=== PATIENT | female | born 1960 | race Caucasian/White ===

== ENCOUNTER → 2016-10-02 | Outpatient (CLI) | payer BC | END | disposition home or self-care (01) | LOC: C.PAPS 09:20 | PROVIDERS: ATTEND Family Medicine | DX: R87.612 Low grade squamous intraepithelial lesion on cytologic smear of cervix (LGSIL) (principal); Z12.4 Encounter for screening for malignant neoplasm of cervix ==

== ENCOUNTER → 2016-10-04 | Outpatient (CLI) | payer BC ==
[2016-10-04 13:12] LABS: BASO % 1.8 %; BASO ABS # 0.07 K/uL (0-0.2); COMPLETE YES; EOS % 2.8 %; IG% 0.3 %; LYMPH % 34.7 %; LYMPH ABS # 1.34 K/uL (1.2-3.4); MEAN CELL VOLUME 89.3 fL (80-100); MEAN CORPUSCULAR HEMOGLOBIN 29.9 pg (25-34); MEAN CORPUSCULAR HGB CONC 33.5 g/dl (32-36); MEAN PLATELET VOLUME 10.6 fL (7.4-10.4); MONO % 7.5 %; NEUT % 52.9 %; PLATELET COUNT 215 K/uL (130-400); RED BLOOD COUNT 4.48 M/uL (4.2-5.4); WHITE BLOOD COUNT 3.86 K/uL (4.8-10.8)
[2016-10-04 13:26] LABS: BLOOD UREA NITROGEN 18 mg/dl (7-18); BUN/CREATININE RATIO 28.3 (10-20); CALCIUM 8.6 mg/dl (8.5-10.1); CARBON DIOXIDE 34 mmol/L (21-32); CHLORIDE 107 mmol/L (98-107); CREATININE 0.63 mg/dl (0.60-1.20); GLUCOSE 76 mg/dl (70-99); POTASSIUM 4.1 mmol/L (3.5-5.1); SODIUM 142 mmol/L (136-145)
[2016-10-04 13:29] LABS: CHOLESTEROL 163 mg/dl (0-200); CHOLESTEROL/HDL RATIO 2.5; HDL CHOLESTEROL 64 mg/dl; LDL CHOLESTEROL CALCULATED 87 mg/dl; PHOSPHORUS 3.1 mg/dl (2.5-4.9); TRIGLYCERIDES 62 mg/dl (0-150); VERY LOW DENSITY LIPOPROT CALC 12 mg/dl
== END | disposition home or self-care (01) ==
LOC: C.LABMFLN 08:57
PROVIDERS: ATTEND Family Medicine
DX: Z13.1 Encounter for screening for diabetes mellitus (principal); Z13.220 Encounter for screening for lipoid disorders; D05.00 Lobular carcinoma in situ of unspecified breast

== ENCOUNTER 2022-06-23 20:45 | Inpatient (IN) ==
[2022-06-23 21:33] LABS: Basophils # (auto) 0.04 K/uL (0-0.2); Basophils % (auto) 0.5 %; Eosinophils # (auto) 0.37 K/uL (0-0.50); Eosinophils % (auto) 4.7 %; Hematocrit (blood only) 28.8 % (34.1-44.9); Hemoglobin 8.6 g/dl (12.0-16.0); Immature Granulocytes # (auto) 0.05 K/uL (0.00-0.02); Immature Granulocytes % (auto) 0.6 %; Lymphocytes # (auto) 1.97 K/uL (1.2-3.4); Lymphocytes % (auto) 24.8 %; Mean Corpuscular Hemoglobin 21.7 pg (25.0-34.0); Mean Corpuscular Hgb Conc 29.9 g/dL (32.0-36.0); Mean Corpuscular Volume 72.5 fL (80.0-100.0); Mean Platelet Volume 10.3 fL (9.4-12.3); Monocytes % (auto) 6.3 %; Neutrophils # (auto) 5.01 K/uL (1.4-6.5); Neutrophils % (auto) 63.1 %; Platelet Count 497 K/uL (130-400); RDW Coefficient of Variation 16.1 % (11.5-14.5); RDW Standard Deviation 41.6 fL (36.4-46.3); Red Blood Count 3.97 M/uL (3.93-5.22); White Blood Count 7.94 K/ul (4.8-10.8)
[2022-06-23 21:52] LABS: Albumin Globulin Ratio 1.3 (0.9-2); Albumin Level 4.1 gm/dl (3.4-5.0); BUN Creatinine Ratio 25.8 (10-20); Bilirubin,Total 0.3 mg/dl (0.2-1.0); Calcium 9.3 mg/dl (8.5-10.1); Creatinine Clr Calc Pharmacy 100.5 ml/min; Est GFR (African American) 112.8 ml/min; Est GFR (Non-African American) 97.3 ml/min; Globulin 3.1 gm/dl (2.5-4.0); Potassium 4.1 mmol/L (3.5-5.1); Total Protein 7.2 gm/dl (6.0-8.3)
[2022-06-23 21:53] LABS: Appearance Urine Clear (Clear); Bilirubin Urine Negative (Negative); Blood Urine Negative (Negative); Color Urine Yellow; Glucose Urine UA Negative (Negative); Ketones Urine Negative (Negative); Leukocyte Esterase Urine Negative (Negative); Nitrite Urine Negative (Negative); Protein Urine Negative (Negative); Specific Gravity Urine 1.021 (1.000-1.030); Urobilinogen Urine Negative (Negative)
[2022-06-23] MEDS ORDERED: ONDANSETRON INJ 2 MG/ML 2 ML VIAL IV STA (22:55)
[2022-06-23] MEDS ORDERED: FAMOTIDINE 20MG IV PUSH 20 MG/5 ML SYR IV STA (22:55)
[2022-06-23] MEDS ORDERED: PANTOprazole 40 MG in SYRINGE 0 ML IV ONE (22:55)
[2022-06-23] MEDS ORDERED: SODIUM CHLORIDE 0.9% 1000ML 1,000 ML IV SCH (23:00)
[2022-06-23] MEDS: MoRPHine SULFATE 4 MG/ML 1 ML CARP\\VIAL IV PRN (23:21)
[2022-06-23] MEDS ORDERED: OPTIRAY 350 100ml IV ONE (23:46)
[2022-06-24] MEDS ORDERED: ONDANSETRON INJ 2 MG/ML 2 ML VIAL IV STA (00:53)
--- NOTE | 2022-06-24 01:05 | History & Physical Report ---
Date of Service June 24, 2022 Assessment & Plan (1) Small bowel obstruction: Plan: Lavonne Hein is a 61-year-old female with past medical history of asthma, hypertension, allergic rhinitis who presented due to abdominal pain. Found to have SBO versus ileus. SBO CT abdomen showed multiple fluid-filled nondilated loops of small bowel in the lower abdomen and pelvis concerning for ileus/SBO with transition point in the pelvis Surgery consulted hold on NG tube due to soft, nondistended abdomen and no emesis up to this point N.p.o. IV fluids ordered Antiemetics and analgesics as needed Gastritis With midepigastric pain Anemia with hemoglobin of 8.6 down from previous of 10.3 Concerning for possible GI bleed Report of dark stools, though did take Pepto-Bismol regularly Hemoccult negative in ED Continue to monitor CBC Start Protonix IV 40 mg twice daily for now Can consider GI consult for possibility of endoscopy Transfuse if hemoglobin under 7 patient has been typed and screened ?Colitis Stool PCR and C. difficile pending Follow CBC Hypertension Hold home lisinopril while n.p.o. Asthma Continue home fluticasonesalmeterol, albuterol as needed Allergic rhinitis Hold home loratadine while n.p.o. DVT prophylaxis: Hold chemoprophylaxis due to anemia with concern for possible GI bleed Diet: N.p.o. Dispo: Med telemetry CODE STATUS: Full (2) Anemia: (3) Hyperlipidemia: (4) Hypertension, essential, benign: (5) Asthma: (6) Allergic rhinitis: History of Present Illness Primary Care Provider: Conchis Sawyer MD Lavonne Hein is a 61-year-old female with past medical history of asthma, hypertension, allergic rhinitis who presented due to abdominal pain. She has had this for the past few days and the pain is localized directly behind her umbilicus and in her epigastric region. She does have associated nausea and one episode of emesis. She did report dark stools, however, she did admit to using Pepto-Bismol regularly to try to help with the symptoms. Of note, patient did report similar pain shortly after Thanksgiving, which had resolved after few days. In the ED CT abdomen showed multiple fluid-filled nondilated loops of small bowel in the lower abdomen and pelvis concerning for ileus/SBO with transition point in the pelvis. Findings concerning for colitis of the ascending and transverse colon, which may be of infectious or inflammatory etiologies. Findings concerning for gastritis. Hepatic steatosis. Lab work remarkable for a hemoglobin of 8.6, which is lower than her previous of 10.3 in March. Normal white count. BUN/creatinine ratio 25.8 without any significant creatinine or BUN elevation. CRP 0.89. Stool GI PCR and C. difficile toxin ordered by ED provider and pending. She received NSS 1 L bolus, Zofran 4 mg IV x2, famotidine 20 mg IV x1, Protonix 40 mg IV x1. Allergies Allergy/AdvReac Type Severity Reaction Status Date / Time Sulfa (Sulfonamide Allergy Intermediate Hives Verified 07/01/22 13:38 Antibiotics) Home Medications Medication Instructions Recorded Confirmed Type albuterol sulfate 90 mcg/actuation 2 puffs inhalation Q4H PRN 01/15/19 07/01/22 Rx aerosol inhaler (Ventolin HFA) shortness of breath or wheezing #18 grams loratadine 10 mg tablet 10 mg PO DAILY #90 tabs 01/15/19 07/01/22 Rx multivitamin (Daily Multi-Vitamin 1 tab PO DAILY #30 tabs 01/15/19 07/01/22 Rx tablet) fluticasone 100 mcg-salmeterol 50 1 puffs inhalation Q12H 07/16/19 07/01/22 History mcg/dose blistr powdr for inhalation (Advair Diskus) lisinopril 5 mg tablet 5 mg PO DAILY #90 tabs 01/18/22 07/01/22 Rx oxycodone-acetaminophen 5 mg-325 1 - 2 tab PO Q4H PRN pain, initial 06/29/22 07/01/22 Rx mg tablet (Percocet) therapy, max 6 daily #15 tabs Past Med/Surg History Medical History (Updated 06/29/22 @ 08:14 by Zainab Mcneal MD) Allergic rhinitis Anemia Anxiety Asthma Hypertension, essential, benign Liver lesion Lobular carcinoma in situ of breast Lung mass Mass of cecum Pap smear abnormality of cervix with LGSIL Surgical History (Updated 06/28/22 @ 11:12 by Nieves Hassan RN) H/O colonoscopy 12/29/13 repeat 10yrs H/O lumpectomy H/O oral surgery H/O right hemicolectomy (06/26/22) Robotic Laparoscopic Assisted Right Hemicolectomy(Not Applicable) - Solomon Hopper, DO, FACS History of facial surgery History of tubal ligation Family History Grandmother Stroke syndrome Denies family history of Ovarian cancer Prostate cancer Myocardial infarction Breast cancer Colorectal cancer Social History Smoking Status: Never smoker Second Hand Exposure: No; Hx Alcohol Use: No Hx Substance Use: No Preferred Language: Turkish Communication Ability: Effective Ground Control Approach Technician Required: No Beliefs That Will Affect Care: Sabianist marital status: Current Living Situation: Spouse current occupational status: employed Feels Safe at Home: Yes Assistive Devices: None Review of Systems Review of Systems: Per HPI Physical Exam Physical Exam: GENERAL: A&Ox3. In mild to moderate pain. HEENT: PERRL, EOMI. Moist mucous membranes. NECK: No JVD. No lymphadenopathy. CHEST/LUNGS: CTAB A/P. No crackles, wheezes, rales, rhonchi. HEART: RRR. No m/g/r. No carotid bruits. ABDOMEN: Moderately tender to palpation midepigastrium, nondistended, soft. BS+ EXTREMITIES: No cyanosis, no clubbing, no edema SKIN: Warm and dry. No rashes or lesions. PSYCHIATRIC: Euthymic affect, no SI, no pressured speech, no hallucinations NEUROLOGIC: No FND. Results & Data Results & [facility] ([facility]) Vital Signs (Past 12 Hours) Vital Signs Temp Pulse Pulse Resp BP BP Pulse Ox 06/23/22 23:00 77 18 164/108 H 100 06/23/22 21:27 98 06/23/22 20:56 36.5 C 81 16 156/92 H 100 O2 Del Method 06/23/22 23:00 Room Air 06/23/22 21:27 Room Air 06/23/22 20:56 Room Air Supervising Physician Co-Signing Physician Notes Attending addendum: I have physically seen this patient, have supervised the medical residents activities, and agree with the H&P unless as otherwise noted. Assessment and Plan: Small bowel obstruction- NPO IV fluids as noted Zofran 4 mg IV every 6 hours as needed Protonix 40 mg IV twice daily General surgery consulted and aware Gastritis- Protonix 40 mg IV twice daily N.p.o. was noted Anemia- Hemoglobin 8.6 down from 10.3 Hemoccult negative Multiple serial laboratories Consult GI if progressive Question colitis- Stool PCR and C. difficile testing pending, treat as needed Remaining orders and notations as noted Resident Activity Tracking Resident Involvement: Resident Care Provided Care Provided: Adult Hospital Medicine
--- NOTE | 2022-06-24 01:08 | Surgery Consultation ---
Date of Consultation June 24, 2022 Assessment & Plan (1) Small bowel obstruction: I discussed the case with the treating clinician in the emergency department he is planning on having medicine admit the patient to the hospital. In the absence of prior abdominal surgeries and based on the patient's CAT scan and symptomatology appears that the patient either has a small bowel obstruction or an ileus. In the setting of colitis I would favor an ileus. I would recommend proceeding as follows: At the present time the patient's abdomen is soft and nondistended. She has not had any emesis since arrival to the emergency department therefore I feel we can hold off on placing an NG tube at this time. I did discuss with the patient that if her abdominal exam worsens (increased pain or worsening abdominal distention) or if further nausea vomiting soothe the modality of an NG tube may need to be reconsidered Recommend implementing n.p.o. status Recommend hydrating with IV fluids At the present time it does not appear That the patient has any findings suggestive of ischemic bowel (she is normotensive without tachycardia or fever, white blood cell count is normal, no evidence of acute kidney injury, no rebound tenderness or guarding on abdominal exam) It does appear that the patient may be suffering from a colitis or gastritis causing her symptomatology. Treating clinician emergency department has already ordered stool studies for a C. difficile as well as stool cultures The patient does have what appears to be a new onset anemia which may be related to the underlying colitis or gastritis Would recommend following serial labs Gastroenterology consultation may be beneficial to see if patient warrants either upper or lower endoscopy We will continue to follow along with you while the patient is hospitalized Supervising Physician Co-Signing Physician Notes Patient seen and examined, labs and imaging reviewed, agree with above. 61-year-old female presented overnight with several weeks of abdominal cramping and bloating. She has been having normal bowel movements as of yesterday. Symptoms started around Thanksgiving, somewhat resolved, and then got worse. She did have a colonoscopy many years ago that was normal. No family history of colon cancer or inflammatory bowel disease. Her CT scan overnight was read as ileus versus obstruction with possible gastritis and colitis. She was admitted to the medicine service for concern for a small bowel obstruction. The [facility] radiologist read it today as concerning for an ileocecal mass. GIs been consulted and they are planning on a colonoscopy tomorrow. On exam she is afebrile with stable vitals. Her abdomen is soft, nondistended, nontender. I personally viewed and interpreted the CT scan myself and agree with the assessm ent of some small bowel dilation with a gentle taper in the right lower quadrant with lymphadenopathy and thickening around the ileocecal valve which is concerning for a mass. Labs are unremarkable. Colonoscopy tomorrow by GI, appreciate their assistance CT chest and CEA levels for staging Pending the results of the colonoscopy, we may recommend laparoscopic/robotic right hemicolectomy. If it appears that she is obstructed then we would recommend this during this hospital stay. General surgery will continue to follow, call with questions or concerns. History of Present Illness Reason for Consultation: Small bowel obstruction versus ileus History of Present Illness This is a 61-year-old female who presented to the emergency department secondary to abdominal pain. The patient notes that she originally had abdominal pain beginning the weekend after Thanksgiving which was around June 08. She noted that the pain lasted a few days and then self resolved. She notes over the past several days the pain is returned. When I asked her to describe the pain she notes that it is a stabbing cramp-like pain that is located primarily over her umbilicus. She notes that the pain does not radiate. She does have associated nausea and vomiting. She had had 1 episode of emesis earlier today. She does not note any palliative or provocative factors. She has never had abdominal surgeries in the past. She notes that she had a colonoscopy in 2013 and to the best of her knowledge there is no significant pathology noted on the study. No close contacts are ill with similar symptoms. The patient does note to alleviate her symptoms she did take some Pepto-Bismol yesterday with no avail. She notes that she has been having normal bowel movements since her symptoms began but does report that over the past 24 hours her bowel movements have become greenish/black in color. Since arrival to the emergency department the patient has had labs and imaging which independent reviewed. CT scan of the abdomen and pelvis showed multiple fluid-filled dilated loops of small bowel in the lower abdomen pelvis which was concerning for either an ileus or small bowel obstruction. There are also findings concerning for colitis of the ascending and transverse colon which was felt to be either infectious or inflammatory. Findings concerning for gastritis was also noted. Labs include a CBC her white blood cell count was normal. Her platelet count is 497,000. Hemoglobin and hematocrit were 8.6 and 28.8. (Review of records show the patient's most recent hemoglobin was on 03/15/2022 and was noted to be 10.3.; Prior to these dates her hemoglobin was noted to be with in the normal range) chemistry profile showed sodium and potassium are within normal range. Her BUN and creatinine were also within normal range. There were no elevation of LFTs or lipase. Urinalysis was not indicative of infection. A COVID test was negative. At the time of my interview she was resting comfortably in bed and she was in no distress. Allergies Allergy/AdvReac Type Severity Reaction Status Date / Time Sulfa (Sulfonamide Allergy Intermediate Hives Verified 06/23/22 23:01 Antibiotics) Home Medications Medication Instructions Recorded Confirmed Type albuterol sulfate 90 mcg/actuation 2 puffs inhalation Q4H PRN 01/15/19 06/23/22 Rx aerosol inhaler (Ventolin HFA) shortness of breath or wheezing #18 grams loratadine 10 mg tablet 10 mg PO DAILY #90 tabs 01/15/19 06/23/22 Rx multivitamin (Daily Multi-Vitamin 1 tab PO DAILY #30 tabs 01/15/19 06/23/22 Rx tablet) fluticasone 100 mcg-salmeterol 50 1 puffs inhalation Q12H 07/16/19 06/23/22 History mcg/dose blistr powdr for inhalation (Advair Diskus) lisinopril 5 mg tablet 5 mg PO DAILY #90 tabs 01/18/22 06/23/22 Rx Patient History Medical History Allergic rhinitis Anxiety Asthma Hypertension, essential, benign 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 Surgical History H/O colonoscopy 12/29/13 repeat 10yrs H/O lumpectomy H/O oral surgery History of facial surgery History of tubal ligation Family History Grandmother Stroke syndrome Denies family history of Ovarian cancer Prostate cancer Myocardial infarction Breast cancer Colorectal cancer Social History Smoking Status: Never smoker Hx Alcohol Use: No Hx Substance Use: No marital status: Current Living Situation: Spouse current occupational status: employed Feels Safe at Home: Yes Review of Systems Constitutional: no fever and no chills Eyes: no eye pain Ear, Nose, Mouth, Throat: no ear pain Respiratory: no cough and no dyspnea Cardiovascular: no chest pain Gastrointestinal: as per Subjective / HPI, + abdominal pain, + nausea and + vomiting Genitourinary: no dysuria Musculoskeletal: no back pain Integumentary: no rash Neurologic: no localized weakness Physical Exam Constitutional: WD/WN, vitals as above Eyes: no conjunctival abnormality ENMT: Ears: no hearing impairment and no external ear abnormality Mouth: no oropharynx abnormality Neck: trachea midline Respiratory: normal respiratory effort; no respiratory distress and no labored breathing Cardiovascular: Rate/Rhythm: regular rate and regular rhythm Gastrointestinal (Abdomen): At the time of my exam the patient's abdomen was soft, nonrigid, nondistended. She did have pain with palpation directly over the umbilicus but did not have any rebound tenderness or guarding. With a female nurse staple laster present and the patient's permission I did perform a rectal exam patient was noted to have normal sphincter tone. Stool. Dark brown/black in color and was noted to be heme-negative on Hemoccult. Musculoskeletal: No calf tenderness Skin: no rashes Neurologic: moves all extremities Psychiatric: A+Ox3, euthymic affect Results & Data ([facility]) Vital Signs (Past 12 Hours) Vital Signs Temp Pulse Pulse Resp BP BP Pulse Ox 06/23/22 23:00 77 18 164/108 H 100 06/23/22 21:27 98 06/23/22 20:56 36.5 C 81 16 156/92 H 100 O2 Del Method 06/23/22 23:00 Room Air 06/23/22 21:27 Room Air 06/23/22 20:56 Room Air PG Care Time/CCT Total # of Minutes Spent Total Time Spent with Patient: Total time spent is greater than 50% in coordination of care (as documented) at patient's floor/unit and/or counseling patient: Coding Level of Care Code 76391 Inpt Consult Level 5 Diagnoses Small bowel obstruction K56.609
[2022-06-24] MEDS ORDERED: PROCHLORPERAZINE 5 MG in SYRINGE 4 ML IV ONE (02:00)
[2022-06-24] MEDS: MoRPHine SULFATE 4 MG/ML 1 ML CARP\\VIAL IV PRN (02:05)
[2022-06-24] MEDS ORDERED: ALBUTEROL HFA 8 GM INHALER INH PRN (03:09)
[2022-06-24] MEDS ORDERED: MoRPHine SULFATE 2 MG/ML CARP IV PRN (03:09)
[2022-06-24] MEDS ORDERED: MoRPHine SULFATE 4 MG/ML 1 ML CARP\\VIAL IV PRN (03:09)
[2022-06-24] MEDS: SODIUM CHLORIDE 0.9% 1000ML 1,000 ML IV SCH ×2 (03:29→16:16)
--- NOTE | 2022-06-24 05:47 | Emergency Department Note ---
History of Present Illness General Chief complaint: Abdominal Pain Stated complaint: ABD PAIN, VOMITING Time Seen by Provider: 06/23/22 22:30 History of Present Illness Maximum Pain Intensity: 7 This is a 61-year-old female presenting to the emergency department for evaluation of abdominal pain for the past several weeks. The patient states that many of her symptoms began around the where she had some epigastric pain that worsened after eating. Patient states that her pain worsened even more tonight and she did have an episode of vomiting. The patient has taken [id number] Tums without improvement of symptoms, as well as a single dose of Pepto-Bismol. She does not report a history of abdominal surgery in the past. No recent travel history. She rates her discomfort a 7/10, dull, and primarily in the epigastric region. Home Medications Medication Instructions Recorded Confirmed Type albuterol sulfate 90 mcg/actuation 2 puffs inhalation Q4H PRN 01/15/19 06/23/22 Rx aerosol inhaler (Ventolin HFA) shortness of breath or wheezing #18 grams loratadine 10 mg tablet 10 mg PO DAILY #90 tabs 01/15/19 06/23/22 Rx multivitamin (Daily Multi-Vitamin 1 tab PO DAILY #30 tabs 01/15/19 06/23/22 Rx tablet) fluticasone 100 mcg-salmeterol 50 1 puffs inhalation Q12H 07/16/19 06/23/22 History mcg/dose blistr powdr for inhalation (Advair Diskus) lisinopril 5 mg tablet 5 mg PO DAILY #90 tabs 01/18/22 06/23/22 Rx Allergies Allergy/AdvReac Type Severity Reaction Status Date / Time Sulfa (Sulfonamide Allergy Intermediate Hives Verified 06/23/22 23:01 Antibiotics) Past Med/Surg History Medical History Allergic rhinitis Anxiety Asthma Hypertension, essential, benign 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 Surgical History H/O colonoscopy 12/29/13 repeat 10yrs H/O lumpectomy H/O oral surgery History of facial surgery History of tubal ligation Family History Grandmother Stroke syndrome Denies family history of Ovarian cancer Prostate cancer Myocardial infarction Breast cancer Colorectal cancer Social History Smoking Status: Never smoker Hx Alcohol Use: No Hx Substance Use: No marital status: Current Living Situation: Spouse current occupational status: employed Feels Safe at Home: Yes Review of Systems A total of 10 systems reviewed and were otherwise negative Physical Exam Vital Signs Vital Signs - 24 hr 06/23/22 20:56 06/23/22 21:27 06/23/22 23:00 Temperature 36.5 C Temperature Source Temporal Artery Scan Pulse Rate 81 Pulse Rate [Finger] 77 Respiratory Rate 16 18 Respiratory Effort / Characteristics Non-Labored Spontaneous Respiratory Depth Normal Blood Pressure 156/92 H Blood Pressure [Right Arm] 164/108 H Blood Pressure Mean 113 Blood Pressure Mean [Right Arm] 126 Pulse Oximetry 100 98 100 Oxygen Delivery Method Room Air Room Air Room Air Sepsis Recent Fever Within 48 Hours No Sepsis New/Unexplained Change in Mental Status No Sepsis Action Taken by Nursing No Action Required 06/24/22 01:00 Temperature Temperature Source Pulse Rate Pulse Rate [Finger] 75 Respiratory Rate 18 Respiratory Effort / Characteristics Respiratory Depth Blood Pressure Blood Pressure [Right Arm] 150/83 H Blood Pressure Mean Blood Pressure Mean [Right Arm] 105 Pulse Oximetry 95 Oxygen Delivery Method Room Air Sepsis Recent Fever Within 48 Hours Sepsis New/Unexplained Change in Mental Status Sepsis Action Taken by Nursing VITALS: Vitals are noted on the nurse's note and reviewed by myself. Vital signs stable. GENERAL: Well-developed, well-nourished, white female, who is mildly uncomfortable on presentation. She is overall pleasant and cooperative. HEAD: Normocephalic atraumatic. HEART: Regular rate and rhythm without murmurs gallops or rubs. LUNGS: Clear to auscultation bilaterally without wheezes, rales or rhonchi. No retractions or accessory muscle use. ABDOMEN: Positive normal bowel sounds x 4. Soft, nontender, without masses or organomegaly. No guarding or rebound tenderness. MUSCULOSKELETAL: No muscle atrophy, erythema, or edema noted. Full range of motion in all extremities. Course Administered Medications Sodium Chloride (Nss 1000ml) 1,000 mls @ 100 mls/hr IV .Q10H MARIA D Stop: 07/24/22 03:08 Last Admin: 06/24/22 03:29 Dose: 100 mls/hr Documented By: JUANY Discontinued Medications Sodium Chloride (Nss 1000ml) 1,000 mls @ 999 mls/hr IV .Q1H1M MARIA D Stop: 06/24/22 00:00 Last Infusion: 06/24/22 00:39 Dose: 0 mls/hr Documented By: Admin: 06/23/22 23:21 Dose: 999 mls/hr Documented By: ESTRELLA Pantoprazole Sodium 40 mg/ (Syringe) 10 mls @ 5 mls/min IV NOW ONE Stop: 06/23/22 22:56 Last Admin: 06/23/22 23:21 Dose: 5 mls/min Documented By: ESTRELLA Famotidine (Pepcid 20mg Iv Push) 20 mg in 5 mls @ 2.5 mls/min IV NOW STA Stop: 06/23/22 22:56 Last Admin: 06/23/22 23:21 Dose: 2.5 mls/min Documented By: ESTRELLA Prochlorperazine 5 mg/ Syringe 5 mls @ 5 mls/min IV 0200 ONE Stop: 06/24/22 02:01 Last Admin: 06/24/22 02:00 Dose: 5 mls/min Documented By: ESTRELLA Ioversol (Optiray 350 100ml) 100 ml IV ONCE ONE Stop: 06/23/22 23:47 Last Admin: 06/23/22 23:46 Dose: 85 ml Documented By: LITTLE Morphine Sulfate (Morphine Sulfate 4 Mg/Ml 1 Ml Carp\Vial) 4 mg IV Q30M PRN PRN Reason: Pain Stop: 07/07/22 22:54 Last Admin: 06/24/22 02:05 Dose: 4 mg Documented By: Admin: 06/23/22 23:21 Dose: 4 mg Documented By: ESTRELLA Ondansetron HCl (Ondansetron Inj 2 Mg/Ml 2 Ml Vial) 4 mg IV NOW STA Stop: 06/23/22 22:56 Last Admin: 06/23/22 23:21 Dose: 4 mg Documented By: ESTRELLA Ondansetron HCl (Ondansetron Inj 2 Mg/Ml 2 Ml Vial) 4 mg IV NOW STA Stop: 06/24/22 00:54 Last Admin: 06/24/22 00:58 Dose: 4 mg Documented By: ESTRELLA Medical Decision Making Differential Diagnosis Differential diagnosis: Etiologies such as biliary colic, cholecystitis, hepatitis, pancreatitis, cardiac disease, pancreatitis, gastritis, peptic ulcer disease, appendicitis, cystitis, diverticulitis, mesenteric ischemia, inflammatory bowel disease, ileus, bowel obstruction, testicular/adnexal torsion, aortic pathology, shingles, as well as others were considered Laboratory Data Result diagrams: 06/23/22 21:13 06/23/22 21:13 Lab Results 06/23/22 06/23/22 06/23/22 Range/Units 21:13 21:13 21:13 WBC 7.94 (4.8-10.8) K/ul RBC 3.97 (3.93-5.22) M/uL Hgb 8.6 L (12.0-16.0) g/dl Hct 28.8 L (34.1-44.9) % MCV 72.5 L (80.0-100.0) fL MCH 21.7 L (25.0-34.0) pg MCHC 29.9 L (32.0-36.0) g/dL RDW Std Deviation 41.6 (36.4-46.3) fL RDW Coeff of Kayleigh 16.1 H (11.5-14.5) % Plt Count 497 H (130-400) K/uL MPV 10.3 (9.4-12.3) fL Immature Gran % (Auto) 0.6 % Neut % (Auto) 63.1 % Lymph % (Auto) 24.8 % Thomas % (Auto) 6.3 % Eos % (Auto) 4.7 % Baso % (Auto) 0.5 % Neut # (Auto) 5.01 (1.4-6.5) K/uL Lymph # (Auto) 1.97 (1.2-3.4) K/uL Thomas # (Auto) 0.50 (0.24-0.82) K/uL Eos # (Auto) 0.37 (0-0.50) K/uL Baso # (Auto) 0.04 (0-0.2) K/uL Immature Gran # (Auto) 0.05 H (0.00-0.02) K/uL ESR (0-30) mm/hr Sodium 137 (136-145) mmol/L Potassium 4.1 (3.5-5.1) mmol/L Chloride 102 (98-107) mmol/L Carbon Dioxide 29 (21-32) mmol/L Anion Gap 6 (3-11) BUN 16 (6-23) mg/dl Creatinine 0.62 (0.6-1.2) mg/dl Est Cr Clr Drug Dosing 100.5 ml/min Est GFR ( Amer) 112.8 ml/min Est GFR (Non-Af Amer) 97.3 ml/min BUN/Creatinine Ratio 25.8 H (10-20) Glucose 100 H (70-99(Fasting)) mg/dl Calcium 9.3 (8.5-10.1) mg/dl Total Bilirubin 0.3 (0.2-1.0) mg/dl AST 16 (13-39) U/L ALT 18 (7-52) U/L Alkaline Phosphatase 79 (34-104) U/L C-Reactive Protein (0-0.5) mg/dl Total Protein 7.2 (6.0-8.3) gm/dl Albumin 4.1 (3.4-5.0) gm/dl Globulin 3.1 (2.5-4.0) gm/dl Albumin/Globulin Ratio 1.3 (0.9-2) Lipase 26 (11-82) U/L Urine Color Yellow Urine Appearance Clear (Clear) Urine pH 7.0 (4.5-7.5) Ur Specific Herreid 1.021 (1.000-1.030) Urine Protein Negative (Negative) Urine Glucose (UA) Negative (Negative) Urine Ketones Negative (Negative) Urine Blood Negative (Negative) Urine Nitrite Negative (Negative) Urine Bilirubin Negative (Negative) Urine Urobilinogen Negative (Negative) Ur Leukocyte Esterase Negative (Negative) SARS-CoV-2, RNA, NAAT (NEGATIVE) Blood Type Antibody Screen 06/23/22 06/23/22 06/23/22 Range/Units 21:13 21:13 23:12 WBC (4.8-10.8) K/ul RBC (3.93-5.22) M/uL Hgb (12.0-16.0) g/dl Hct (34.1-44.9) % MCV (80.0-100.0) fL MCH (25.0-34.0) pg MCHC (32.0-36.0) g/dL RDW Std Deviation (36.4-46.3) fL RDW Coeff of Kayleigh (11.5-14.5) % Plt Count (130-400) K/uL MPV (9.4-12.3) fL Immature Gran % (Auto) % Neut % (Auto) % Lymph % (Auto) % Thomas % (Auto) % Eos % (Auto) % Baso % (Auto) % Neut # (Auto) (1.4-6.5) K/uL Lymph # (Auto) (1.2-3.4) K/uL Thomas # (Auto) (0.24-0.82) K/uL Eos # (Auto) (0-0.50) K/uL Baso # (Auto) (0-0.2) K/uL Immature Gran # (Auto) (0.00-0.02) K/uL ESR 77 H (0-30) mm/hr Sodium (136-145) mmol/L Potassium (3.5-5.1) mmol/L Chloride (98-107) mmol/L Carbon Dioxide (21-32) mmol/L Anion Gap (3-11) BUN (6-23) mg/dl Creatinine (0.6-1.2) mg/dl Est Cr Clr Drug Dosing ml/min Est GFR ( Amer) ml/min Est GFR (Non-Af Amer) ml/min BUN/Creatinine Ratio (10-20) Glucose (70-99(Fasting)) mg/dl Calcium (8.5-10.1) mg/dl Total Bilirubin (0.2-1.0) mg/dl AST (13-39) U/L ALT (7-52) U/L Alkaline Phosphatase (34-104) U/L C-Reactive Protein 0.89 H (0-0.5) mg/dl Total Protein (6.0-8.3) gm/dl Albumin (3.4-5.0) gm/dl Globulin (2.5-4.0) gm/dl Albumin/Globulin Ratio (0.9-2) Lipase (11-82) U/L Urine Color Urine Appearance (Clear) Urine pH (4.5-7.5) Ur Specific Herreid (1.000-1.030) Urine Protein (Negative) Urine Glucose (UA) (Negative) Urine Ketones (Negative) Urine Blood (Negative) Urine Nitrite (Negative) Urine Bilirubin (Negative) Urine Urobilinogen (Negative) Ur Leukocyte Esterase (Negative) SARS-CoV-2, RNA, NAAT (NEGATIVE) Blood Type A Negative Antibody Screen NEGATIVE 06/23/22 Range/Units 23:58 WBC (4.8-10.8) K/ul RBC (3.93-5.22) M/uL Hgb (12.0-16.0) g/dl Hct (34.1-44.9) % MCV (80.0-100.0) fL MCH (25.0-34.0) pg MCHC (32.0-36.0) g/dL RDW Std Deviation (36.4-46.3) fL RDW Coeff of Kayleigh (11.5-14.5) % Plt Count (130-400) K/uL MPV (9.4-12.3) fL Immature Gran % (Auto) % Neut % (Auto) % Lymph % (Auto) % Thomas % (Auto) % Eos % (Auto) % Baso % (Auto) % Neut # (Auto) (1.4-6.5) K/uL Lymph # (Auto) (1.2-3.4) K/uL Thomas # (Auto) (0.24-0.82) K/uL Eos # (Auto) (0-0.50) K/uL Baso # (Auto) (0-0.2) K/uL Immature Gran # (Auto) (0.00-0.02) K/uL ESR (0-30) mm/hr Sodium (136-145) mmol/L Potassium (3.5-5.1) mmol/L Chloride (98-107) mmol/L Carbon Dioxide (21-32) mmol/L Anion Gap (3-11) BUN (6-23) mg/dl Creatinine (0.6-1.2) mg/dl Est Cr Clr Drug Dosing ml/min Est GFR ( Amer) ml/min Est GFR (Non-Af Amer) ml/min BUN/Creatinine Ratio (10-20) Glucose (70-99(Fasting)) mg/dl Calcium (8.5-10.1) mg/dl Total Bilirubin (0.2-1.0) mg/dl AST (13-39) U/L ALT (7-52) U/L Alkaline Phosphatase (34-104) U/L C-Reactive Protein (0-0.5) mg/dl Total Protein (6.0-8.3) gm/dl Albumin (3.4-5.0) gm/dl Globulin (2.5-4.0) gm/dl Albumin/Globulin Ratio (0.9-2) Lipase (11-82) U/L Urine Color Urine Appearance (Clear) Urine pH (4.5-7.5) Ur Specific Herreid (1.000-1.030) Urine Protein (Negative) Urine Glucose (UA) (Negative) Urine Ketones (Negative) Urine Blood (Negative) Urine Nitrite (Negative) Urine Bilirubin (Negative) Urine Urobilinogen (Negative) Ur Leukocyte Esterase (Negative) SARS-CoV-2, RNA, NAAT NEGATIVE (NEGATIVE) Blood Type Antibody Screen Imaging Data Radiologist's Impression: Preliminary Findings Only See Final Report For Complete Findings CT ABDOMEN & PELVIS With Contrast: There are multiple fluid-filled and dilated loops of small bowel in the lower abdomen and pelvis concerning for ileus/small bowel obstruction with transition point in the pelvis. Findings concerning for colitis of the ascending and transverse colon, which may be of infectious or inflammatory etiologies. Findings concerning for gastritis. Hepatic steatosis. The gallbladder is unremarkable. Small hepatic cyst. The common bile duct is normal. No evidence of pancreatitis. No evidence of hydronephrosis or urinary c alculi. The appendix is normal. Diverticulosis of the sigmoid colon. No evidence of free air or free fluid. No comparisons. Radiologist: Marifer Crowder MD [facility] Narrative Physical exam and history were performed. Nursing notes, EMR, and Medication List were personally reviewed. Patient appears to have abdominal pain bringing her to the ER. IV access was established and labs were obtained. Patient was hydrated with normal saline given IV morphine, IV Zofran, IV Protonix, and IV Pepcid. An order was placed for continuous cardiac monitoring. The monitor shows a rate of 70 with normal sinus rhythm. The patient's blood work is as above and was reviewed. She does not have a significantly elevated white blood cell count. She is anemic today at 8.6. Reviewing the EMR her hemoglobin was 10.3 and March, and 13.8 in January. Because of this type and screen was performed. She was sent to CT scan for further imaging. BUN and creatinine are preserved. Transaminases are not diagnostic. Sed rate and CRP are elevated. Urine is without distinct evidence of . COVID swab is negative. CT scan was reviewed by myself and [employer]. She does have multiple fluid-filled and dilated small bowel loops. This certainly could represent small bowel obstruction, however this colitis is also in the differential. Clinically I have concern for upper GI bleed with her pain, nausea, and drop in hemoglobin. I did reach out to both the on-call hospitalist team, as well as the on-call surgical team. Surgical team did perform bedside guaiac that was negative. The patient will be admitted through the hospitalist team for further care and evaluation. Please see their dictations for further patient course, plan, and disposition. The chart was completed utilizing [employer] Speech Voice Recognition Software. Grammatical errors, random word insertions, pronoun errors, and incomplete sentences are an occasional consequence of this system due to software limitations, ambient noise, and hardware issues. Any formal questions or concerns about the content, text, or information contained within the body of this dictation should be directly addressed to the provider for clarification. . Impression & Plan Acute upper abdominal pain, Anemia, Small bowel obstruction Discharge Plan Visit Data Chief Complaint: Abdominal Pain Stated Complaint: ABD PAIN, VOMITING ED Provider: [facility] ED Midlevel Provider: Reji Mariee Discharge Problem: Acute upper abdominal pain, Anemia, Small bowel obstruction Patient Disposition: Admitted As Inpatient Discharge Instructions Interventions: ED Discharge Assessment Last Done: 06/24/22 03:09
--- NOTE | 2022-06-24 07:47 | CT Scan Report ---
CT OF THE ABDOMEN AND PELVIS WITH CONTRAST CLINICAL HISTORY: Upper abdominal pain. Anemia. COMPARISON STUDY: None. TECHNIQUE: Following IV administration of 85 mL of Optiray, axial images of the abdomen and pelvis we re obtained from the lung bases to the proximal femurs. Images were reviewed in the axial, sagittal, and coronal planes. IV contrast was administered without complication. Automated exposure control wa s utilized for the study. A dose lowering technique was utilized adhering to the principles of ALARA . CT DOSE: 406.72 mGy.cm FINDINGS: Lung bases are unremarkable. No pneumatosis, free air or portal venous gas is present. A 7 mm fat-containing right hepatic dome lesion on axial image 12 of 451 is benign. There is a 7 mm circu mscribed hypodense segment 6 lesion on image 101 which is too small to characterize but probably sandy gn. There is no biliary or pancreatic ductal dilatation. Spleen, adrenal glands, left kidney and panc reas are normal. Subcentimeter right renal lesion is too small to characterize but favors a cyst. The re is no hydronephrosis. There is trace perihepatic ascites. Note is made of a small bowel obstructio n with transition point at the ileocecal valve. Small bowel loops measure up to 3.8 cm in caliber. Th e mid to distal small bowel is dilated. There is mild associated mesenteric infiltration and trace in terloop fluid. The obstruction is due to mass-like thickening within the cecum. A pathologically enla rged ileocolic lymph node on image 220 measures 3.5 x 2 cm. Numerous additional prominent ileocolic l ymph nodes are present. A sending colon is decompressed. Colonic diverticulosis is noted without evid ence for acute diverticulitis. There is no pelvic lymphadenopathy. No suspicious lesions are identifi ed within the visualized skeletal structures. IMPRESSION: 1. Small bowel obstruction with transition point at the ileocecal valve. Given irregular mass-like t hickening of the cecum and pathologic ileocolic lymphadenopathy, the obstruction is due to a cecal ma ss and is highly suspicious for colonic adenocarcinoma. GI consultation is recommended. Findings disc ussed with Dr. Burton at time of dictation. 2. Trace ascites and mild mesenteric stranding related to the small bowel obstruction. 3. 7 mm hypodense right hepatic lobe lesion. Although too small to characterize, a benign etiology is favored. This can be assessed on follow-up exams. ACT 112: Positive. There are findings on this exam that require communication between the performing entity and the patient following Patient Test Result Information Act ([place] Act 112) guidelines. Electronically signed by: Allen Garvin M.D. 06/24/2022 7:46 AM
--- NOTE | 2022-06-24 08:38 | Hospitalist Progress Note ---
Date of Service June 24, 2022 Assessment & Plan (1) Mass of cecum: Plan: Re-read of CT concerning for cecal mass. Discussed with patient and will consult gastroenterology. Last colonoscopy in 2013 at [place] she reports as normal with 10 year follow up recommended. No family history. Requests [facility] gastro. Continue NPO and IV fluids currently. CEA (2) Small bowel obstruction: Plan: NPO, IV fluids Appreciate surgery recommendations - discussed case with Criselda Prieto (3) Anemia: Plan: Pantoprazole 40mg IV BID although low suspicion for UGI bleed Continue to trend, iron studies, B12, folate wtih AM labs (4) Hypertension, essential, benign: Plan: Hold lisinopril given acute anemia (5) Asthma: Plan: Switch Advair Diskus for Breo Ellipta as per hospital formulary Plan VTE prophylaxis - chemical prophylaxis deferred due to acute anemia Diet - NPO Disposition - continue on med/tele Admission and Anticipated Discharge Date Admission Date: June 24, 2022 Subjective Discussed re-read of CT with the patient - informed of concern of cecal mass and need to have gastroenterology to discuss colonoscopy. History discussed with patient and consistent with H&P. No significant change in symptoms overnight. Passing gas. No current nausea or vomiting. No melena or bright red blood in stool. Review of Systems Review of Systems: All systems reviewed & are unremarkable except as noted in Subjective Physical Exam Constitutional: WD/WN, vitals as above Respiratory: normal respiratory effort, lungs clear to auscultation Cardiovascular: RRR, no murmur, no edema Gastrointestinal (Abdomen): Inspection/Auscultation: abdomen normal to inspection and + abdomen distended Percussion/Palpation: + abdomen tender and abdomen soft; no guarding and abdomen not rigid Musculoskeletal: no cyanosis or clubbing, extremities motor strength 5/5 Skin: no rashes, warm and dry Neurologic: moves all extremities and awake; not confused Psychiatric: A+Ox3, euthymic affect Results & Data Results & Data ([facility]) Vital Signs (Past 12 Hours) Vital Signs Temp Pulse Pulse Resp BP BP Pulse Ox 06/24/22 07:09 64 19 113/70 96 06/24/22 03:20 06/24/22 03:20 70 14 135/85 96 06/24/22 03:04 69 18 135/85 95 06/24/22 01:00 75 18 150/83 H 95 06/23/22 23:00 77 18 164/108 H 100 06/23/22 21:27 98 06/23/22 20:56 36.5 C 81 16 156/92 H 100 Pulse Ox O2 Del Method O2 Del Method 06/24/22 07:09 Room Air 06/24/22 03:20 96 Room Air 06/24/22 03:20 Room Air 06/24/22 03:04 Room Air 06/24/22 01:00 Room Air 06/23/22 23:00 Room Air 06/23/22 21:27 Room Air 06/23/22 20:56 Room Air PG Care Time/CCT Total # of Minutes Spent Total Time Spent with Patient: Total time spent is greater than 50% in coordination of care (as documented) at patient's floor/unit and/or counseling patient: Coding Level of Care Code None Diagnoses Mass of cecum K63.89 Small bowel obstruction K56.609 Anemia D64.9 Hypertension, essential, benign I10 Asthma J45.909
[2022-06-24] MEDS: FLUTICASONE/VILANTEROL 100/25MCG 14 PUFFS/INHALER INH SCH (08:58)
[2022-06-24] MEDS: PANTOprazole 40 MG in SYRINGE 0 ML IV SCH ×2 (08:59→21:47)
--- NOTE | 2022-06-24 10:14 | Gastrointestinal Consultation ---
Date of Consultation June 24, 2022 Assessment & Plan (1) Abnormal computed tomography of cecum and terminal ileum: (2) Small bowel obstruction: Plan -Will administer fleet enemas today and tomorrow in preparation for colonoscopy on 06/25/22. -No current indication for NG tube. -Supportive care per primary team. History of Present Illness Reason for Consultation: "? Cecal mass" Attending Physician: Rodriguez Burton MD History of Present Illness Patient is a 61 yo female with PMH of cataracts, HLD, breast cancer, HTN, asthma, allergic rhinitis, & anxiety who presents to [facility] due to several days of periumbilical pain. She notes a single episode of emesis and a dark stool after drinking Pepto Bismol to help her pain. She notes a similar issue occurred several weeks ago but it resolved. She denies chronic constipation or diarrhea. She denies a history of GI issues. Last colonoscopy reportedly in 2013 in [place] without abnormalities. She notes she was to be due again in 2023. No pertinent family history. In the ED, she had a CT scan of the abdomen/pelvis that was concerning for an il eus vs SBO with transition point in the pelvis ultimately concerning for cecal mass. She was noted to be anemic. Her current H/H is 8.6/28.8. She had a hemoglobin of 10.3 in March. CRP 0.89. She notes that at present her pain is controlled and she has no nausea or vomiting. She offers no acute complaints. She notes she has been tolerating a liquid diet prior to presentation. Allergies Allergy/AdvReac Type Severity Reaction Status Date / Time Sulfa (Sulfonamide Allergy Intermediate Hives Verified 06/23/22 23:01 Antibiotics) Home Medications Medication Instructions Recorded Confirmed Type albuterol sulfate 90 mcg/actuation 2 puffs inhalation Q4H PRN 01/15/19 06/23/22 Rx aerosol inhaler (Ventolin HFA) shortness of breath or wheezing #18 grams loratadine 10 mg tablet 10 mg PO DAILY #90 tabs 01/15/19 06/23/22 Rx multivitamin (Daily Multi-Vitamin 1 tab PO DAILY #30 tabs 01/15/19 06/23/22 Rx tablet) fluticasone 100 mcg-salmeterol 50 1 puffs inhalation Q12H 07/16/19 06/23/22 History mcg/dose blistr powdr for inhalation (Advair Diskus) lisinopril 5 mg tablet 5 mg PO DAILY #90 tabs 01/18/22 06/23/22 Rx Patient History Medical History Allergic rhinitis Anxiety Asthma Hypertension, essential, benign 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 Surgical History H/O colonoscopy 12/29/13 repeat 10yrs H/O lumpectomy H/O oral surgery History of facial surgery History of tubal ligation Family History Grandmother Stroke syndrome Denies family history of Ovarian cancer Prostate cancer Myocardial infarction Breast cancer Colorectal cancer Social History Smoking Status: Never smoker Hx Alcohol Use: No Hx Substance Use: No marital status: Current Living Situation: Spouse current occupational status: employed Feels Safe at Home: Yes Review of Systems Constitutional: no fever and no chills Respiratory: no cough and no dyspnea Cardiovascular: no chest pain Gastrointestinal: + abdominal pain; no change in bowel habits, no cons tipation, no diarrhea/loose stools and no blood in stools Integumentary: no rash Psychiatric: no problem reported Hematologic / Lymphatic: no unexplained weight loss Physical Exam Constitutional: well developed Respiratory: normal respiratory effort, lungs clear to auscultation Cardiovascular: Rate/Rhythm: regular rate Gastrointestinal (Abdomen): Inspection/Auscultation: + abdomen distended; + abnormal bowel sounds Percussion/Palpation: + tympanic to percussion Musculoskeletal: Head/Neck/Chest: normocephalic Psychiatric: Orientation: alert and oriented x 3 Results & Data ([facility]) Vital Signs (Past 12 Hours) Vital Signs Pulse Resp BP Pulse Ox Pulse Ox O2 Del Method O2 Del Method 06/24/22 07:09 64 19 113/70 96 Room Air 06/24/22 03:20 96 Room Air 06/24/22 03:20 70 14 135/85 96 Room Air 06/24/22 03:04 69 18 135/85 95 Room Air 06/24/22 01:00 75 18 150/83 H 95 Room Air 06/23/22 23:00 77 18 164/108 H 100 Room Air PG Care Time/CCT Total # of Minutes Spent Total Time Spent with Patient: Total time spent is greater than 50% in coordination of care (as documented) at patient's floor/unit and/or counseling patient: Coding Level of Care Code 66823 Inpt Consult Level 4 Diagnoses Abnormal computed tomography of cecum and terminal ileum R93.3 Small bowel obstruction K56.609
[2022-06-24] MEDS ORDERED: SOD PHOSPHATE/SOD BIPHOSPHATE ENEMA 132 ML BTL PR ONE ×2 (10:45→12:00)
[2022-06-24] MEDS: ONDANSETRON INJ 2 MG/ML 2 ML VIAL IV PRN (12:37)
[2022-06-24] MEDS: ACETAMINOPHEN 1,000 MG/100 ML VIAL IV PRN (12:44)
[2022-06-24] MEDS: LACTATED RINGER'S 1,000 ML IV SCH (18:06)
[2022-06-24 18:34] LABS: Hematocrit (blood only) 25.7 % (34.1-44.9); Hemoglobin 7.7 g/dl (12.0-16.0)
[2022-06-24] MEDS ORDERED: PNEUMOCOCCAL Polysaccharide Vaccine 25mcg/0.5mL vial/Syr IM ONE (20:15)
[2022-06-25] MEDS: LACTATED RINGER'S 1,000 ML IV SCH ×3 (01:55→22:18)
[2022-06-25] MEDS: ACETAMINOPHEN 1,000 MG/100 ML VIAL IV PRN (04:39)
[2022-06-25] MEDS ORDERED: SOD PHOSPHATE/SOD BIPHOSPHATE ENEMA 132 ML BTL PR ONE ×2 (06:00→08:00)
[2022-06-25 06:46] LABS: Hemoglobin 6.8 g/dl (12.0-16.0); Mean Corpuscular Hemoglobin 21.3 pg (25.0-34.0); Mean Corpuscular Hgb Conc 29.6 g/dL (32.0-36.0); Mean Corpuscular Volume 71.9 fL (80.0-100.0); Mean Platelet Volume 10.2 fL (9.4-12.3); Platelet Count 293 K/uL (130-400); RDW Standard Deviation 41.6 fL (36.4-46.3); White Blood Count 5.03 K/ul (4.8-10.8)
[2022-06-25] MEDS ORDERED: SODIUM CHLORIDE 0.9% 250 ML IV PRN ×2 (07:00→14:28)
[2022-06-25 07:21] LABS: Ferritin 4.4 ng/ml (8-388)
[2022-06-25 07:23] LABS: Albumin Globulin Ratio 1.3 (0.9-2); Albumin Level 3.1 gm/dl (3.4-5.0); BUN Creatinine Ratio 19.4 (10-20); Bilirubin,Total 0.4 mg/dl (0.2-1.0); Calcium 7.9 mg/dl (8.5-10.1); Creatinine Clr Calc Pharmacy 100.5 ml/min; Est GFR (African American) 112.8 ml/min; Est GFR (Non-African American) 97.3 ml/min; Globulin 2.3 gm/dl (2.5-4.0); Potassium 3.8 mmol/L (3.5-5.1); Total Protein 5.4 gm/dl (6.0-8.3)
[2022-06-25 07:26] LABS: Vitamin B12 721 pg/ml (180-914)
[2022-06-25 07:37] LABS: Basophils # (auto) 0.04 K/uL (0-0.2); Basophils % (auto) 0.8 %; Eosinophils # (auto) 0.19 K/uL (0-0.50); Eosinophils % (auto) 3.8 %; Immature Granulocytes # (auto) 0.02 K/uL (0.00-0.02); Immature Granulocytes % (auto) 0.4 %; Lymphocytes # (auto) 1.23 K/uL (1.2-3.4); Lymphocytes % (auto) 24.5 %; Monocytes # (auto) 0.47 K/uL (0.24-0.82); Monocytes % (auto) 9.3 %; Neutrophils # (auto) 3.08 K/uL (1.4-6.5); Neutrophils % (auto) 61.2 %; Ovalocytes 1+; Polychromasia 1+
[2022-06-25] MEDS: PANTOprazole 40 MG in SYRINGE 0 ML IV SCH ×2 (08:02→22:45)
[2022-06-25] MEDS: FLUTICASONE/VILANTEROL 100/25MCG 14 PUFFS/INHALER INH SCH (08:03)
--- NOTE | 2022-06-25 09:33 | History & Physical Bridge Note ---
Date of Service June 25, 2022 History & Physical Bridge Note I have examined the patient, reviewed the History & Physical and in the interval since the performance of the History & Physical I have noted the following changes of clinical significance: no changes noted. she has been doing fleets enemas. no bleeding or melena. she has some midline abdominal pain she rates as 2/10. dull. denies any SOB or chest pain. she is scheduled for a colonoscopy for today to further evaluate the CT findings. 06/25/22 hgb 6.8 (previously 7.7)
--- NOTE | 2022-06-25 09:45 | Surgery Progress Note ---
Date of Service June 25, 2022 Assessment & Plan (1) Abnormal computed tomography of cecum and terminal ileum: Plan: Patient here with SBO secondary to presumed mass at cecum Hbg 6.8 (7.7); CEA 4.7; Vital signs are stable. She is ordered to receive 2units of pRBC GI following and plans to perform colonoscopy today for further evaluation of colon and biopsies of mass If + mass found would recommend obtaining CT chest for staging We will follow up upon results and make further recommendations for surgical intervention after GI workup Admission and Anticipated Discharge Date Admission Date: June 24, 2022 Supervising Physician Co-Signing Physician Notes Patient seen and examined after colonoscopy, agree with above. Admitted with partially obstructing ileocecal mass, confirmed by colonoscopy today. CEA level 4.7. She is currently afebrile with stable vitals and her abdomen is soft and nontender. We discussed findings and she would like to proceed with surgery tomorrow. Plan for robotic assisted laparoscopic right hemicolectomy, possible open Risk of the procedure were discussed to include but not limited to bleeding, infection, anastomotic leak, conversion open, need for future more extensive surgeries, damage to surrounding structures, and the risk of anesthesia CT chest today Make sure she has 2 units PRBCs on hold OR for tomorrow Repeat labs in the morning Hold anticoagulation May have ice chips and sips until midnight, then n.p.o. Subjective Patient reporting some mid-abdominal pain. No nausea/vomiting. Tolerating the prep. No blood in BM's. Physical Exam Physical Exam: awake/alert, no distress Respiratory: normal respiratory effort Gastrointestinal (Abdomen): Inspection/Auscultation: abdomen not distended Percussion/Palpation: + abdomen tender (some discomfort elicited around mid/lower abdomen) and abdomen soft Results & Data ([facility]) Vital Signs (Past 12 Hours) Vital Signs Temp Pulse Pulse Resp BP BP Pulse Ox 06/25/22 07:22 36.6 C 65 20 126/76 94 06/25/22 02:45 37.2 C 73 16 110/68 92 06/24/22 22:10 83 06/24/22 23:04 37.1 C 71 16 139/80 96 O2 Del Method 06/25/22 07:22 Room Air 06/25/22 02:45 Room Air 06/24/22 22:10 06/24/22 23:04 Room Air PG Care Time/CCT Total # of Minutes Spent Total Time Spent with Patient: Total time spent is greater than 50% in coordination of care (as documented) at patient's floor/unit and/or counseling patient: Coding Level of Care Code 99546 Subseq Hosp Care Lvl 1 Diagnoses Abnormal computed tomography of cecum and terminal ileum R93.3
[2022-06-25 11:08] LABS: Adenovirus F 40/41 PCR Not Detected (NotDetected); Astrovirus PCR Not Detected (NotDetected); Campylobacter PCR Not Detected (NotDetected); Cryptosporidium PCR Not Detected (NotDetected); Cyclospora cayetanensis PCR Not Detected (NotDetected); Entamoeba histolytica PCR Not Detected (NotDetected); Enteroaggregative E.coli(EAEC) Not Detected (NotDetected); Enteropathogenic E.coli (EPEC) Not Detected (NotDetected); Enterotoxigenic E.coli (ETEC) Not Detected (NotDetected); Giardia lamblia PCR Not Detected (NotDetected); Norovirus GI/GII PCR Not Detected (NotDetected); Plesiomonas shigelloides PCR Not Detected (NotDetected); Rotavirus A PCR Not Detected (NotDetected); Salmonella PCR Not Detected (NotDetected); Sapovirus PCR Not Detected (NotDetected); Shiga-like Toxin E.coli (STEC) Not Detected (NotDetected); Shigella/Enteroinvasive E.coli Not Detected (NotDetected); Vibrio cholerae PCR Not Detected (NotDetected); Vibrio species PCR Not Detected (NotDetected); Yersinia enterocolitica PCR Not Detected (NotDetected)
--- NOTE | 2022-06-25 12:37 | Anesthesiology Consultation ---
Date of Service June 25, 2022 Assessment & Plan Chart Review Chart Review: Acceptable Risk for Surgery and Patient NOT seen in Pre Admission Testing Consults Requested none ASA ASA3 Proposed Anesthesia Anesthesia Type: MAC Risk / Benefits Reviewed With: PT / POA / Parent / Guardian, Accepts Plan and Informed Consent Obtained History Surgery Operation Date: 06/25/22 16:30 Proposed Procedures p Colonoscopy Dr. Uziel Triplett MD Height/Weight Height: 5 ft 7 in Weight: 74.7 kg Allergies Allergy/AdvReac Type Severity Reaction Status Date / Time Sulfa (Sulfonamide Allergy Intermediate Hives Verified 06/25/22 12:26 Antibiotics) Medications Home Medications Medication Instructions Recorded Confirmed Last Taken albuterol sulfate 90 mcg/actuation 2 puffs inhalation Q4H PRN 01/15/19 06/23/22 Unknown aerosol inhaler (Ventolin HFA) shortness of breath or wheezing #18 grams loratadine 10 mg tablet 10 mg PO DAILY #90 tabs 01/15/19 06/23/22 06/23/22 multivitamin (Daily Multi-Vitamin 1 tab PO DAILY #30 tabs 01/15/19 06/23/22 06/23/22 tablet) fluticasone 100 mcg-salmeterol 50 1 puffs inhalation Q12H 07/16/19 06/23/22 06/23/22 mcg/dose blistr powdr for inhalation (Advair Diskus) lisinopril 5 mg tablet 5 mg PO DAILY #90 tabs 01/18/22 06/23/22 06/23/22 Active Medications Generic Name Dose Route Start Last Admin Trade Name Freq PRN Reason Stop Dose Admin Fluticasone/Vilanterol 1 puffs 06/24/22 09:00 06/25/22 08:03 Fluticasone/Vilanterol 100/25mcg 14 Puffs/Inhaler INH 07/24/22 08:59 1 puffs DAILY MARIA D Administration Acetaminophen 1,000 mg in 100 mls @ 400 mls/hr 06/24/22 03:09 06/25/22 04:54 Ofirmev IV 06/27/22 03:08 Infused Q8H PRN Infusion Pain Pantoprazole Sodium 40 mg/ 10 mls @ 5 mls/min 06/24/22 09:00 06/25/22 08:02 Syringe IV 07/24/22 08:59 5 mls/min BID MARIA D Administration Lactated Ringer's 1,000 mls @ 125 mls/hr 06/24/22 17:45 06/25/22 08:53 Lr IV 07/24/22 17:44 125 mls/hr .Q8H MARIA D Administration Ondansetron HCl 4 mg 06/24/22 03:09 06/24/22 12:37 Ondansetron Inj 2 Mg/Ml 2 Ml Vial IV 07/24/22 03:08 4 mg Q6H PRN Administration Nausea NPO Date Last Intake of Fluids: 06/23/22 Time Last Intake of Fluids: 18:00 Date Last Intake of Solids: 06/23/22 Time Last Intake of Solids: 18:00 Past Medical History Medical History Allergic rhinitis Anxiety Asthma Hypertension, essential, benign 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 Exercise / Class Metabolic Activity II 4-5 Yardwork/Stairs/Walk up hill Past Family History Family History Grandmother Stroke syndrome Denies family history of Ovarian cancer Prostate cancer Myocardial infarction Breast cancer Colorectal cancer Past Surgical History Surgical History H/O colonoscopy 12/29/13 repeat 10yrs H/O lumpectomy H/O oral surgery History of facial surgery History of tubal ligation Past Anesthesia History No Hx of Anesthesia Complications and No Family Hx of Anesthesia Complications History of PONV No Hx of PONV and No Hx of Motion Sickness Social History Smoking Status: Never smoker Do You Dip or Chew Tobacco: No Hx Alcohol Use: No Hx Substance Use: No substance use type: does not use Physical Exam Vital Signs Last Vital Signs Temp 36.8 C 06/25/22 12:20 Pulse 80 06/25/22 12:20 Resp 16 06/25/22 12:20 BP 154/84 H 06/25/22 12:20 Pulse Ox 95 06/25/22 12:20 O2 Del Method 06/25/22 07:22 Constitutional no acute distress and not obese ENMT Mouth: no dentition abnormality Thyromental Distance: < 3.5 Finger Breadths Mallampati Class: II Neck normal visual inspection and trachea midline; neck extension not limited Respiratory normal respiratory effort Auscultation: lungs clear to auscultation bilaterally Cardiovascular Rate/Rhythm: regular rate and regular rhythm Heart Sounds: no murmur Vessels: no carotid bruit Musculoskeletal Spine: normal cervical ROM and no pain with cervical ROM Extremities: full ROM of extremities Neurologic moves all extremities Motor/Sensory: no sensory deficit Psychiatric Orientation: alert and oriented x 3 Testing Laboratory Results 06/25/22 05:55 06/25/22 05:55 Urine Color Yellow 06/23/22 21:13 Urine Appearance Clear (Clear) 06/23/22 21:13 Urine pH 7.0 (4.5-7.5) 06/23/22 21:13 Ur Specific [place] 1.021 (1.000-1.030) 06/23/22 21:13 Urine Protein Negative (Negative) 06/23/22 21:13 Urine Glucose (UA) Negative (Negative) 06/23/22 21:13 Urine Ketones Negative (Negative) 06/23/22 21:13 Urine Nitrite Negative (Negative) 06/23/22 21:13 Ur Leukocyte Esterase Negative (Negative) 06/23/22 21:13 Blood Type A Negative 06/23/22 23:12 Antibody Screen NEGATIVE 06/23/22 23:12 Electrocardiogram Date: 01/17/21 Findings: + SB @ (@ 57;? infer. infarct,age ?) Stress Test Date: 02/13/21 Type: exercise Findings: + WNL Resting EF: 60% Resting LV Function: normal Resting RWMA: + none Valvular Disease: no significant valvular disease and MR (mild MR)
[2022-06-25] MEDS ORDERED: ATROPINE SULFATE 0.1 MG/ML 10ML SYR IV PRN (12:39)
[2022-06-25] MEDS ORDERED: ePHEDrine sulfate 50 MG/ML AMP IV PRN (12:39)
[2022-06-25] MEDS ORDERED: PROPOFOL IV EMULSION 10 MG/ML 20 ML VIAL IV ONE (13:19)
[2022-06-25] MEDS ORDERED: LIDOCAINE 2% MPF LOCAL 5 ML VIAL INFIL ONE (13:19)
--- NOTE | 2022-06-25 13:27 | GI REPORT ---
Patient Name: Lavonne Hein Procedure Date: 06/25/2022 12:39 PM Date of : 1960 Admit Type: Inpatient Age: 61 Gender: Female Attending MD: Corbin Triplett MD, Procedure: Colonoscopy Providers: Corbin Triplett MD Referring MD: Rodriguez Burton Md Indications: Abnormal CT of the GI tract Medicines: Monitored Anesthesia Care Complications: No immediate complications. Estimated blood loss: None. Estimated Blood Loss: Estimated blood loss: none. Procedure: Pre-Anesthesia Assessment: - Prior Anticoagulants: The patient has taken no anticoagulant or antiplatelet agents. - ASA Grade Assessment: II - A patient with mild systemic disease. After I obtained informed consent, the scope was passed under direct vision. Throughout the procedure, the patient's blood pressure, pulse, and oxygen saturations were monitored continuously. The Colonoscope was introduced through the anus and advanced to the cecum, identified by appendiceal orifice and ileocecal valve. The colonoscopy was performed without difficulty. The patient tolerated the procedure well. The quality of the bowel preparation was adequate to identify polyps greater than 5 mm in size. Findings: A fungating large mass was found in the cecum on the IC valve, 75 cm from the anus. Biopsies were taken with a cold forceps for histology. Estimated blood loss: none. Impression: - Likely malignant tumor in the cecum. Biopsied. Recommendation: - [facility]. NPO - Await pathology results. Corbin Triplett MD 06/25/2022 1:26:55 PM This report has been signed electronically. Note Initiated On: 06/25/2022 12:39 PM Number of Addenda: 0 I attest to the content of the Intraoperative Record and orders documented therein, exceptions below {[id number]}
--- NOTE | 2022-06-25 13:42 | Anesthesiology Progress Note ---
Date of Service June 25, 2022 Anesthesia Post Procedure Vital Signs Vital Signs: Temp Pulse Pulse Resp BP BP BP 06/25/22 13:38 65 16 141/85 H 06/25/22 13:22 70 16 131/74 06/25/22 12:27 37.2 C 76 16 160/95 H 06/25/22 12:20 36.8 C 80 16 154/84 H 06/25/22 11:58 36.8 C 80 18 151/84 H 06/25/22 10:58 37 C 72 18 126/79 06/25/22 10:28 37 C 67 16 128/76 06/25/22 10:13 36.6 C 67 16 143/83 H 06/25/22 09:54 36.5 C 65 16 133/79 06/25/22 07:00 06/25/22 07:00 06/25/22 07:00 82 06/25/22 07:22 36.6 C 65 20 126/76 06/25/22 02:45 37.2 C 73 16 110/68 06/24/22 22:10 83 06/24/22 23:04 37.1 C 71 16 139/80 06/24/22 19:55 36.8 C 67 16 136/75 06/24/22 15:43 63 06/24/22 15:40 06/24/22 15:46 37.0 C 71 18 146/75 H 06/24/22 15:37 37.0 C 71 18 146/75 H 06/24/22 14:17 65 18 136/82 Pulse Ox Pulse Ox O2 Del Method O2 Del Method 06/25/22 13:38 95 Room Air 06/25/22 13:22 96 Room Air 06/25/22 12:27 98 Room Air 06/25/22 12:20 95 06/25/22 11:58 95 06/25/22 10:58 96 06/25/22 10:28 96 06/25/22 10:13 96 06/25/22 09:54 95 06/25/22 07:00 Room Air 06/25/22 07:00 94 Room Air 06/25/22 07:00 06/25/22 07:22 94 Room Air 06/25/22 02:45 92 Room Air 06/24/22 22:10 06/24/22 23:04 96 Room Air 06/24/22 19:55 94 Room Air 06/24/22 15:43 06/24/22 15:40 Room Air 06/24/22 15:46 91 Room Air 06/24/22 15:37 93 Room Air 06/24/22 14:17 95 Room Air Transfer of Care Handoff Completed per policy Notes Mental Status: alert / awake / arousable Patient Amnestic to Procedure: Yes Nausea / Vomiting: adequately controlled Pain: adequately controlled Airway Patency, RR, SpO2: stable & adequate BP & HR: stable & adequate Hydration State: stable & adequate Anesthetic Complications: no major complications apparent
--- NOTE | 2022-06-25 16:26 | CT Scan Report ---
CT chest diagnostic wo con CT DOSE: 283.80 mGy.cm CLINICAL HISTORY: 61 years-old Female with cecal mass confirmed,Chest CT for staging purposes. Acute cough with asthma. Follow-up study in a patient with history of a cecal mass TECHNIQUE: Multiaxial CT images of the chest were performed without contrast. A dose lowering techni que was utilized adhering to the principles of ALARA. COMPARISON: Chest CT 06/23/2022 FINDINGS: Unremarkable thyroid. No pathologically enlarged lymph nodes of the chest. Mild cardiomegal y. No thoracic aortic aneurysm. Trace pleural effusions. No pneumothorax or overt pulmonary edema. Linear bibasilar consolidation. Th ere is a subtle solid nodular 2.1 x 1.7 x 2.7 cm opacity of the apical segment right upper lobe with central 1.3 cm solid component and central bronchogram. 4 mm solid nodule of the right middle lobe, i mage 166. Mild biapical pleural-parenchymal scarring. No definite evidence of pulmonary metastasis. T he central airways are patent. Indeterminate 7 mm hypodensity of the hepatic dome is likely benign. Unremarkable soft tissues. No ac sulaiman fracture or destructive bone lesion. IMPRESSION: 1. Trace pleural effusions with linear bibasilar consolidation suggestive of atelectasis. 2. No lymphadenopathy or definite evidence of pulmonary metastasis. 3. 2.7 cm subsolid nodule of the apical segment right upper lobe with 1.3 cm central solid component. Follow-up with pulmonology is needed to exclude a lesion along the adenocarcinoma spectrum. 4. 4 mm right middle lobe solid nodule. Please refer to below summary of Fleischner criteria recommendations for follow-up of incidental CT n odules (Nate Mckay, Guidelines for management of small pulmonary nodules detected on CT scans: A sta tement from the Fleischner Society, Radiology 237: [phone].) SOLID NODULES Solitary nodule size: <6 mm * Low risk patients: no follow-up needed * high risk patients: optional CT at 12 months Note: newly detected indeterminate nodule in persons 35 years of age or older. * Low risk patients: minimal or absent history of smoking and/or other known risk factors * high risk patients: history of smoking or of other known risk factors (e.g. first degree relative with lung cancer, or exposure to asbestos, radon, uranium) * if a nodule up to 8 mm is partly solid or is ground glass further follow-up is required after 24 m onths to exclude possible slow growing adenocarcinoma (DIDIER) SUBSOLID NODULES Solitary part-solid nodule * nodule size <6 mm - no CT follow-up required * nodule size >=6 mm - follow-up CT at 3-6 months. If unchanged, and solid component remains <6 mm, then annual follow-up for 5 years The above report was generated using voice recognition software. It may contain grammatical, syntax o r spelling errors. ACT 112: Negative or not required by law. Electronically signed by: Johny Weller M.D. 06/25/2022 4:23 PM
--- NOTE | 2022-06-25 19:29 | Hospitalist Progress Note ---
Date of Service June 25, 2022 Assessment & Plan (1) Mass of cecum: Plan: Re-read of CT concerning for cecal mass. CEA elevated 4.7 ng/ml [06/25] s/p colonoscopy showing fungating large cecal mass - pathology pending General surgery planning on right hemicolectomy tomorrow Consult oncology (2) Lung mass: Plan: ?second primary cancer vs. metastatic disease Consult pulmonology (3) Small bowel obstruction: Plan: Secondary to obstructing mass as above Continue NPO and IV fluids, diet to be determined by surgery after surgery tomorrow. (4) Acute blood loss anemia: Plan: Hgb drop to 6.8 this morning, somewhat dilutional with IV fluids Asymptomatic but given hemicolectomy planned for tomorrow would plan to aim Hgb > 9 pre-operatively Transfuse 2 units packed RBCs Repeat Hgb following this Transferrin sats 4% with ferritin 4.4ng/ml - will defer iron transfusions to heme/onc postoperatively (5) Anemia: Plan: as above for acute blood loss anemia (6) Hypertension, essential, benign: Plan: Hold lisinopril given acute anemia (7) Asthma: Plan: Switch Advair Diskus for Breo Ellipta as per hospital formulary Plan VTE prophylaxis - chemical prophylaxis deferred due to acute anemia Diet - NPO Disposition - continue on med/tele Admission and Anticipated Discharge Date Admission Date: June 24, 2022 Subjective Patient seen throughout the day. No chest pain, dizziness, lightheadedness or shortness of breath with anemia this morning. No abdominal pain, nausea or vomiting. Patient reviewed after colonoscopy and CT chest result back. We discussed results of mass in right upper lobe of her lung. Unfortunately her was not available to hear the results at this time. Discussed with Dr Mcneal and will need to confirm this is the same cancer as unusual given it is a solitary nodule without metastatic disease in liver or elsewhere in her lung. Will consult pulmonology to see is this can be biopsied via bronchoscopy. Review of Systems Review of Systems: All systems reviewed & are unremarkable except as noted in Subjective Physical Exam Constitutional: WD/WN, vitals as above Respiratory: normal respiratory effort, lungs clear to auscultation Cardiovascular: RRR, no murmur, no edema Gastrointestinal (Abdomen): Inspection/Auscultation: abdomen normal to inspection Percussion/Palpation: + abdomen tender and abdomen soft; no guarding and abdomen not rigid Results & Data Results & Data ([facility]) Vital Signs (Past 12 Hours) Vital Signs Temp Pulse Pulse Resp BP BP Pulse Ox 06/25/22 19:03 37.2 C 84 18 173/96 H 95 06/25/22 18:03 37.4 C 84 18 163/91 H 96 06/25/22 17:33 37.3 C 80 18 169/83 H 95 06/25/22 17:18 37.1 C 70 18 157/88 H 96 06/25/22 16:58 37 C 82 18 162/78 H 96 06/25/22 16:36 59 L 06/25/22 15:11 36.3 C L 64 18 148/85 H 96 06/25/22 13:55 59 L 16 158/91 H 97 06/25/22 13:38 65 16 141/85 H 95 06/25/22 13:22 70 16 131/74 96 06/25/22 12:27 37.2 C 76 16 160/95 H 98 06/25/22 12:20 36.8 C 80 16 154/84 H 95 06/25/22 11:58 36.8 C 80 18 151/84 H 95 06/25/22 10:58 37 C 72 18 126/79 96 06/25/22 10:28 37 C 67 16 128/76 96 06/25/22 10:13 36.6 C 67 16 143/83 H 96 06/25/22 09:54 36.5 C 65 16 133/79 95 O2 Del Method 06/25/22 19:03 06/25/22 18:03 06/25/22 17:33 06/25/22 17:18 06/25/22 16:58 06/25/22 16:36 06/25/22 15:11 Room Air 06/25/22 13:55 Room Air 06/25/22 13:38 Room Air 06/25/22 13:22 Room Air 06/25/22 12:27 Room Air 06/25/22 12:20 06/25/22 11:58 06/25/22 10:58 06/25/22 10:28 06/25/22 10:13 06/25/22 09:54 PG Care Time/CCT Total # of Minutes Spent Total Time Spent with Patient: Total time spent is greater than 50% in coordination of care (as documented) at patient's floor/unit and/or counseling patient: Coding Level of Care Code 39732 Subseq Hosp Care Lvl 3 Diagnoses Mass of cecum K63.89 Lung mass R91.8 Small bowel obstruction K56.609 Acute blood loss anemia D62 Anemia D64.9 Hypertension, essential, benign I10 Asthma J45.909
[2022-06-25 21:54] LABS: Basophils # (auto) 0.04 K/uL (0-0.2); Basophils % (auto) 0.7 %; Eosinophils # (auto) 0.14 K/uL (0-0.50); Eosinophils % (auto) 2.3 %; Hematocrit (blood only) 31.8 % (34.1-44.9); Hemoglobin 9.9 g/dl (12.0-16.0); Immature Granulocytes # (auto) 0.03 K/uL (0.00-0.02); Immature Granulocytes % (auto) 0.5 %; Lymphocytes # (auto) 1.39 K/uL (1.2-3.4); Lymphocytes % (auto) 22.9 %; Mean Corpuscular Hemoglobin 23.5 pg (25.0-34.0); Mean Corpuscular Hgb Conc 31.1 g/dL (32.0-36.0); Mean Corpuscular Volume 75.4 fL (80.0-100.0); Mean Platelet Volume 10.3 fL (9.4-12.3); Monocytes # (auto) 0.47 K/uL (0.24-0.82); Monocytes % (auto) 7.7 %; Neutrophils # (auto) 4.01 K/uL (1.4-6.5); Neutrophils % (auto) 65.9 %; Platelet Count 315 K/uL (130-400); RDW Coefficient of Variation 16.2 % (11.5-14.5); Red Blood Count 4.22 M/uL (3.93-5.22); White Blood Count 6.08 K/ul (4.8-10.8)
--- NOTE | 2022-06-26 07:51 | Oncology Consultation ---
Date of Consultation June 26, 2022 Assessment & Plan (1) Abnormal computed tomography of cecum and terminal ileum: (2) Lung mass: (3) Acute blood loss anemia: Plan Pleasant female who presented with small bowel obstruction. Imaging revealed likely cecal mass as well as right upper lobe 2.7 cm lung nodule. Imaging also revealed likely benign 7 mm right hepatic lobe lesion. Colonoscopy revealed large fungating cecal mass. CEA was 4.7. She is scheduled for hemicolectomy l ater today. -Based on imaging, she appears to have colon cancer. It is unclear if lung lesion is benign or represents metastatic disease from colon primary or primary lung cancer. She also has hepatic lobe lesion which although appears benign on imaging could also represent metastatic disease. Regardless of whether she has metastatic disease to the lung/liver, she appears to have resectable disease which is potentially curable. -Agree with plan for upfront hemicolectomy later today. -Recommend obtaining abdominal MRI to better characterize likely benign hepatic lobe lesion. -Also agree with pulmonary consultation to see if right upper lobe lesion can be accessed via bronchoscopy/EBUS for tissue sampling. If lung lesion is not amenable to biopsy via bronchoscopy/EBUS, would recommend CT-guided biopsy of lung lesion -Even if biopsy of lung lesion shows lung primary or is negative for malignancy, she would most likely require postoperative chemotherapy given imaging findings of likely lymph node involvement. She will need Mediport for FOLFOX chemotherapy. Would however hold off on obtaining Mediport at this time until final pathology from surgery has resulted. -She has iron deficiency anemia from blood loss. Would recommend IV Venofer 300 mg x 2 doses Thank you for this consult. Oncology will continue following patient while in the hospital. Please feel free to call if you have any further questions History of Present Illness Reason for Consultation: Pulmonary and colorectal mass Attending Physician: Rodriguez Burton MD History of Present Illness Ms. Hein is a pleasant female with past medical history of asthma, hypertension, allergic rhinitis. She presented to the ER [facility] on 06/23/2022 with complaints of abdominal pain, nausea and vomiting. CT abdomen and pelvis obtained on 06/23/2022 revealed small bowel obstruction with transition point at the ileocecal valve possibly due to cecal mass and pathologic ileocolic lymphadenopathy highly suspicious for colonic adenocarcinoma. Also noted on CT abdomen and pelvis was trace ascites, mild mesenteric stranding related to the small bowel obstruction and 7 mm hypodense right hepatic lobe lesion likely of benign etiology. CT chest obtained on 06/25/2022 revealed 2.7 cm subsolid nodule of the apical segment right upper lobe with 1.3 cm central solid component and 4 mm right middle lobe solid nodule. Labs obtained on admission was remarkable for anemia with hemoglobin of 8.6. Hemoglobin was noted to have decreased to 6.8 on 06/25/2022 for which she received 2 units of PRBC transfusion. Colonoscopy performed on 06/25/2022 revealed a fungating large mass in the cecum on the IC valve, 75 cm from the anus. Biopsy was obtained of large mass with pathology pending at the time of today's visit. She is scheduled for robotic assisted laparoscopic right hemicolectomy this morning. She endorses abdominal pain, nausea, vomiting. Endorses occasional shortness of breath which she attributes to asthma. Denies chest pain and significant weight loss. Denies any family history of colon malignancy. Allergies Allergy/AdvReac Type Severity Reaction Status Date / Time Sulfa (Sulfonamide Allergy Intermediate Hives Verified 06/25/22 12:26 Antibiotics) Home Medications Medication Instructions Recorded Confirmed Type albuterol sulfate 90 mcg/actuation 2 puffs inhalation Q4H PRN 01/15/19 06/23/22 Rx aerosol inhaler (Ventolin HFA) shortness of breath or wheezing #18 grams loratadine 10 mg tablet 10 mg PO DAILY #90 tabs 01/15/19 06/23/22 Rx multivitamin (Daily Multi-Vitamin 1 tab PO DAILY #30 tabs 01/15/19 06/23/22 Rx tablet) fluticasone 100 mcg-salmeterol 50 1 puffs inhalation Q12H 07/16/19 06/23/22 History mcg/dose blistr powdr for inhalation (Advair Diskus) lisinopril 5 mg tablet 5 mg PO DAILY #90 tabs 01/18/22 06/23/22 Rx Patient History Medical History Allergic rhinitis Anxiety Asthma Hypertension, essential, benign 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 Surgical History H/O colonoscopy 12/29/13 repeat 10yrs H/O lumpectomy H/O oral surgery History of facial surgery History of tubal ligation Family History Grandmother Stroke syndrome Denies family history of Ovarian cancer Prostate cancer Myocardial infarction Breast cancer Colorectal cancer Social History Smoking Status: Never smoker Second Hand Exposure: No; Hx Alcohol Use: No Hx Substance Use: No Preferred Language: Danish Communication Ability: Effective Clinical Informatics Manager Required: No Beliefs That Will Affect Care: Congregation marital status: Current Living Situation: Spouse current occupational status: employed Feels Safe at Home: Yes Assistive Devices: None Review of Systems Review of Systems: All systems reviewed & are unremarkable except as noted in HPI & below Results & Data ([facility]) Vital Signs (Past 12 Hours) Vital Signs Temp Pulse Pulse Resp BP BP Pulse Ox 06/26/22 07:24 77 06/26/22 02:42 36.8 C 72 16 127/67 95 06/25/22 21:58 80 06/25/22 21:02 37.2 C 79 18 163/78 H 96 06/25/22 20:03 37.2 C 76 18 157/83 H 94 O2 Del Method 06/26/22 07:24 06/26/22 02:42 Room Air 06/25/22 21:58 06/25/22 21:02 06/25/22 20:03
[2022-06-26 07:53] LABS: Basophils # (auto) 0.05 K/uL (0-0.2); Basophils % (auto) 0.8 %; Eosinophils # (auto) 0.24 K/uL (0-0.50); Eosinophils % (auto) 3.6 %; Hematocrit (blood only) 31.1 % (34.1-44.9); Hemoglobin 9.7 g/dl (12.0-16.0); Immature Granulocytes # (auto) 0.03 K/uL (0.00-0.02); Immature Granulocytes % (auto) 0.5 %; Lymphocytes # (auto) 1.28 K/uL (1.2-3.4); Lymphocytes % (auto) 19.3 %; Mean Corpuscular Hemoglobin 23.3 pg (25.0-34.0); Mean Corpuscular Hgb Conc 31.2 g/dL (32.0-36.0); Mean Corpuscular Volume 74.6 fL (80.0-100.0); Mean Platelet Volume 9.9 fL (9.4-12.3); Monocytes # (auto) 0.53 K/uL (0.24-0.82); Neutrophils # (auto) 4.51 K/uL (1.4-6.5); Neutrophils % (auto) 67.8 %; Platelet Count 293 K/uL (130-400); RDW Standard Deviation 43.2 fL (36.4-46.3); Red Blood Count 4.17 M/uL (3.93-5.22); White Blood Count 6.64 K/ul (4.8-10.8)
[2022-06-26] MEDS: FLUTICASONE/VILANTEROL 100/25MCG 14 PUFFS/INHALER INH SCH (07:53)
[2022-06-26] MEDS: LACTATED RINGER'S 1,000 ML IV SCH ×2 (07:53→22:29)
[2022-06-26] MEDS: PANTOprazole 40 MG in SYRINGE 0 ML IV SCH ×2 (07:53→22:17)
[2022-06-26] MEDS: ACETAMINOPHEN 1,000 MG/100 ML VIAL IV PRN (08:01)
[2022-06-26 08:15] LABS: BUN Creatinine Ratio 17.2 (10-20); Calcium 8.3 mg/dl (8.5-10.1); Creatinine Clr Calc Pharmacy 99.1 ml/min; Est GFR (African American) 115.3 ml/min; Est GFR (Non-African American) 99.5 ml/min; Potassium 3.8 mmol/L (3.5-5.1)
--- NOTE | 2022-06-26 11:11 | Surgery Progress Note ---
Date of Service June 26, 2022 Assessment & Plan (1) Mass of cecum: Plan: 61-year-old female with partially obstructing cecal mass, highly suspicious for adenocarcinoma the colon. Her CEA level is elevated. Her lung CT does show a 2.7 cm mass, but this is felt not to represent a metastatic deposit. Due to the fact that this is partially obstructing and causing her anemia, we recommend proceeding with surgery prior to any evaluation of the lung lesion. The patient and other services agree with this. Plan for robotic assisted laparoscopic partial colectomy The risk the procedure were discussed to include but not limited to bleeding, infection, leak, damage to surrounding structures, need for future more extensive surgery, conversion open, and the risk of anesthesia (2) Small bowel obstruction: (3) Anemia: (4) Hypertension, essential, benign: Admission and Anticipated Discharge Date Admission Date: June 24, 2022 Subjective 61-year-old female admitted for partial small bowel obstruction secondary to suspected cecal mass. She had a colonoscopy yesterday which showed a large mass right at the ileocecal valve causing partial obstruction. There were no other synchronous lesions present. She had a CT chest last night which showed a 2.7 cm right upper lobe mass, but this does not appear metastatic. She has been seen by hematology/oncology. No changes overnight. Physical Exam Constitutional: WD/WN, vitals as above Respiratory: normal respiratory effort, lungs clear to auscultation Cardiovascular: RRR, no murmur, no edema Gastrointestinal (Abdomen): normal bowel sounds, soft, nontender, no hepatosplenomegaly Inspection/Auscultation: + abdomen distended (Mild) Results & Data ([facility]) Vital Signs (Past 12 Hours) Vital Signs Temp Pulse Pulse Resp BP Pulse Ox O2 Del Method 06/26/22 10:25 Room Air 06/26/22 08:17 36.7 C 74 17 164/89 H 98 Room Air 06/26/22 07:24 77 06/26/22 02:42 36.8 C 72 16 127/67 95 Room Air Diagnostic Findings I personally reviewed and interpreted the CT scans and agree with the assessment of a partially obstructing cecal mass. Also reviewed the chest CT and agree with the assessment of a 2.7 cm nodule in the right upper lobe. CT OF THE ABDOMEN AND PELVIS WITH CONTRAST CLINICAL HISTORY: Upper abdominal pain. Anemia. COMPARISON STUDY: None. TECHNIQUE: Following IV administration of 85 mL of Optiray, axial images of the abdomen and pelvis were obtained from the lung bases to the proximal femurs. Images were reviewed in the axial, sagittal, and coronal planes. IV contrast was administered without complication. Automated exposure control was utilized for the study. A dose lowering technique was utilized adhering to the principles of ALARA. CT DOSE: 406.72 mGy.cm FINDINGS: Lung bases are unremarkable. No pneumatosis, free air or portal venous gas is present. A 7 mm fat-containing right hepatic dome lesion on axial image 12 of 451 is benign. There is a 7 mm circumscribed hypodense segment 6 lesion on image 101 which is too small to characterize but probably benign. There is no biliary or pancreatic ductal dilatation. Spleen, adrenal glands, left kidney and pancreas are normal. Subcentimeter right renal lesion is too small to characterize but favors a cyst. There is no hydronephrosis. There is trace perihepatic ascites. Note is made of a small bowel obstruction with transition point at the ileocecal valve. Small bowel loops measure up to 3.8 cm in caliber. The mid to distal small bowel is dilated. There is mild associated mesenteric infiltration and trace interloop fluid. The obstruction is due to mass-like thickening within the cecum. A pathologically enlarged ileocolic lymph node on image 220 measures 3.5 x 2 cm. Numerous additional prominent ileocolic lymph nodes are present. A sending colon is decompressed. Colonic diverticulosis is noted without evidence for acute diverticulitis. There is no pelvic lymphadenopathy. No suspicious lesions are identified within the visualized skeletal structures. IMPRESSION: 1. Small bowel obstruction with transition point at the ileocecal valve. Given irregular mass-like thickening of the cecum and pathologic ileocolic lymphaden opathy, the obstruction is due to a cecal mass and is highly suspicious for colonic adenocarcinoma. GI consultation is recommended. Findings discussed with Dr. Burton at time of dictation. 2. Trace ascites and mild mesenteric stranding related to the small bowel obstruction. 3. 7 mm hypodense right hepatic lobe lesion. Although too small to characterize, a benign etiology is favored. This can be assessed on follow-up exams. CT chest diagnostic wo con CT DOSE: 283.80 mGy.cm CLINICAL HISTORY: 61 years-old Female with cecal mass confirmed,Chest CT for staging purposes. Acute cough with asthma. Follow-up study in a patient with history of a cecal mass TECHNIQUE: Multiaxial CT images of the chest were performed without contrast. A dose lowering technique was utilized adhering to the principles of ALARA. COMPARISON: Chest CT 06/23/2022 FINDINGS: Unremarkable thyroid. No pathologically enlarged lymph nodes of the chest. Mild cardiomegaly. No thoracic aortic aneurysm. Trace pleural effusions. No pneumothorax or overt pulmonary edema. Linear bibasilar consolidation. There is a subtle solid nodular 2.1 x 1.7 x 2.7 cm opacity of the apical segment right upper lobe with central 1.3 cm solid component and central bronchogram. 4 mm solid nodule of the right middle lobe, image 166. Mild biapical pleural-parenchymal scarring. No definite evidence of pulmonary metastasis. The central airways are patent. Indeterminate 7 mm hypodensity of the hepatic dome is likely benign. Unremarkable soft tissues. No acute fracture or destructive bone lesion. IMPRESSION: 1. Trace pleural effusions with linear bibasilar consolidation suggestive of atelectasis. 2. No lymphadenopathy or definite evidence of pulmonary metastasis. 3. 2.7 cm subsolid nodule of the apical segment right upper lobe with 1.3 cm central solid component. Follow-up with pulmonology is needed to exclude a lesion along the adenocarcinoma spectrum. 4. 4 mm right middle lobe solid nodule. PG Care Time/CCT Total # of Minutes Spent Total Time Spent with Patient: Total time spent is greater than 50% in coordination of care (as documented) at patient's floor/unit and/or counseling patient: Coding Level of Care Code 76433 Inpt Consult Level 2 Diagnoses Mass of cecum K63.89 Small bowel obstruction K56.609 Anemia D64.9 Hypertension, essential, benign I10
--- NOTE | 2022-06-26 11:17 | Anesthesiology Consultation ---
Date of Service June 26, 2022 Assessment & Plan (1) Encounter for pre-operative examination: Chart Review Chart Review: Acceptable Risk for Surgery History Surgery Operation Date: 06/25/22 16:30 Proposed Procedures p Colonoscopy Dr. Triplett - Corbin Triplett MD Operation Date: 06/26/22 09:40 Proposed Procedures p Robotic Right Laparoscopic Hemicolectomy - Solomon Hopper DO, FACS Height/Weight Height: 5 ft 7 in Weight: 73.9 kg Allergies Allergy/AdvReac Type Severity Reaction Status Date / Time Sulfa (Sulfonamide Allergy Intermediate Hives Verified 06/25/22 12:26 Antibiotics) Medications Home Medications Medication Instructions Recorded Confirmed Last Taken albuterol sulfate 90 mcg/actuation 2 puffs inhalation Q4H PRN 01/15/19 06/23/22 Unknown aerosol inhaler (Ventolin HFA) shortness of breath or wheezing #18 grams loratadine 10 mg tablet 10 mg PO DAILY #90 tabs 01/15/19 06/23/22 06/23/22 multivitamin (Daily Multi-Vitamin 1 tab PO DAILY #30 tabs 01/15/19 06/23/22 06/23/22 tablet) fluticasone 100 mcg-salmeterol 50 1 puffs inhalation Q12H 07/16/19 06/23/22 06/23/22 mcg/dose blistr powdr for inhalation (Advair Diskus) lisinopril 5 mg tablet 5 mg PO DAILY #90 tabs 01/18/22 06/23/22 06/23/22 Active Medications Generic Name Dose Route Start Last Admin Trade Name Freq PRN Reason Stop Dose Admin Fluticasone/Vilanterol 1 puffs 06/24/22 09:00 06/26/22 07:53 Fluticasone/Vilanterol 100/25mcg 14 Puffs/Inhaler INH 07/24/22 08:59 1 puffs DAILY MARIA D Administration Acetaminophen 1,000 mg in 100 mls @ 400 mls/hr 06/24/22 03:09 06/26/22 08:47 Ofirmev IV 06/27/22 03:08 Infused Q8H PRN Infusion Pain Pantoprazole Sodium 40 mg/ 10 mls @ 5 mls/min 06/24/22 09:00 06/26/22 07:53 Syringe IV 07/24/22 08:59 5 mls/min BID MARIA D Administration Lactated Ringer's 1,000 mls @ 100 mls/hr 06/24/22 17:45 06/26/22 07:53 Lr IV 07/24/22 17:44 100 mls/hr .Q10H MARIA D Administration Ondansetron HCl 4 mg 06/24/22 03:09 06/24/22 12:37 Ondansetron Inj 2 Mg/Ml 2 Ml Vial IV 07/24/22 03:08 4 mg Q6H PRN Administration Nausea NPO Date Last Intake of Fluids: 06/23/22 Time Last Intake of Fluids: 18:00 Date Last Intake of Solids: 06/23/22 Time Last Intake of Solids: 18:00 Past Medical History Medical History (Updated 06/26/22 @ 11:19 by Nilson Bermeo MD) Allergic rhinitis Anemia Anxiety Asthma Hypertension, essential, benign Liver lesion Lobular carcinoma in situ of breast Lung mass Mass of cecum Pap smear abnormality of cervix with LGSIL Past Family History Family History Grandmother Stroke syndrome Denies family history of Ovarian cancer Prostate cancer Myocardial infarction Breast cancer Colorectal cancer Past Surgical History Surgical History H/O colonoscopy 12/29/13 repeat 10yrs H/O lumpectomy H/O oral surgery History of facial surgery History of tubal ligation Social History Smoking Status: Never smoker Do You Dip or Chew Tobacco: No Hx Alcohol Use: No Hx Substance Use: No substance use type: does not use Physical Exam Vital Signs Last Vital Signs Temp 36.7 C 06/26/22 08:17 Pulse 74 06/26/22 08:17 Resp 17 06/26/22 08:17 BP 164/89 H 06/26/22 08:17 Pulse Ox 98 06/26/22 08:17 O2 Del Method 06/26/22 10:25 Testing Laboratory Results 06/26/22 07:24 06/26/22 07:24 Urine Color Yellow 06/23/22 21:13 Urine Appearance Clear (Clear) 06/23/22 21:13 Urine pH 7.0 (4.5-7.5) 06/23/22 21:13 Ur Specific [place] 1.021 (1.000-1.030) 06/23/22 21:13 Urine Protein Negative (Negative) 06/23/22 21:13 Urine Glucose (UA) Negative (Negative) 06/23/22 21:13 Urine Ketones Negative (Negative) 06/23/22 21:13 Urine Nitrite Negative (Negative) 06/23/22 21:13 Ur Leukocyte Esterase Negative (Negative) 06/23/22 21:13 Blood Type A Negative 06/23/22 23:12 Antibody Screen NEGATIVE 06/23/22 23:12 Electrocardiogram Date: 01/17/21 Findings: + SB @ (57) Stress Test Date: 02/13/21 Type: DSE Findings: + WNL Resting LV Function: normal Valvular Disease: no significant valvular disease
--- NOTE | 2022-06-26 11:27 | Pulmonary Consultation ---
Date of Consultation June 26, 2022 Assessment & Plan (1) Lung mass: 61-year-old female presenting initially with concerning symptoms for possible obstruction with findings suspicious of partially obstructing cecal mass suspicious for adenocarcinoma pulmonary nodules found in the RIGHT upper and middle lobes. * Radiologic review of the lesion in the RIGHT upper lobe appears less suspicious for metastatic spread given location, distribution, and CT appearance. Patient was with recent symptoms of upper respiratory syndrome and was actually treated with prednisone prior to Thanksgiving. Certainly, this area could represent sequela of recent upper respiratory infection. * Lesion in the RIGHT middle lobe does appear to be more suspicious for hematogenous spread, however given its size (4 mm) and location, it would be very difficult to obtain biopsy sample. * While the pulmonary lesions do not specifically suggest need for PET scan, the patient will likely receive scan as part of routine workup. We can assess lesions further with the PET, however this will likely not immediately change current approach. * Would recommend short term (3 month) follow up CT imaging of chest for comparison to assess for changes. * There does not appear to be significant mediastinal lymphadenopathy conducive for sampling either. Thank you for for allowing us to participate in the care of this patient. (2) Mass of cecum: (3) Asthma: Supervising Physician Co-Signing Physician Notes Patient seen and examined. EMR reviewed. Discussed with JOSE E and agree with assessment plan as noted. Patient has [address] findings[address] The groundglass opacity in the apex is unlikely to represent a metastatic focus. It may be postinfectious or inflammatory or could represent primary lung adenocarcinoma in the abdomen this spectrum. Lesion is not amenable to bronchoscopy and may not have metabolic activity on the PET scan given its groundglass nature. recommend clinical surveillance at this point time. It is likely the patient will have outpatient PET scanning performed at some point and could reassess this lesion at that point time as well. If a definitive tissue diagnosis is required at this time, recommend consultation with interventional radiology or radiology here to see if transthoracic approach may be feasible. The 4 mm right middle lobe nodule is definitely concerning for a potential metastatic focus however the lesion is too small to detect on PET scan and too small for bronchoscopic or transthoracic needle biopsy. Definitive biopsy would require surgical resection with a right middle lobectomy. If that is going to make a significant change in the patient's therapeutic regiment, would recommend consultation with thoracic surgery Agree with surgery recommendations to pursue partial colectomy given the obstruc ting nature of the colon lesion. Will need to observe the behavior of these pulmonary lesions over time radiographically. History of Present Illness Reason for Consultation: RIGHT Apical Pulmonary Nodule Requesting Physician: Dr. Burton Attending Physician: Rodriguez Burton MD History of Present Illness Patient is a 61-year-old female with a significant past medical history of hypertension, hyperlipidemia, and asthma. The patient reports that she has had some issues with her asthma since just before . She was seen by her prover specialist at [facility] just before . She was placed on a course of steroids. She was feeling better from a pulmonary standpoint and her breathing had improved, however after the course of steroids, she developed symptoms that she thought was more consistent with a upset stomach. She was having slight pain and belching issues. Unfortunately, her symptoms worsened to epigastric discomfort. She was having associated nausea. When she began vomiting on Friday, 06/24, she presented to the emergency department for further evaluation. She was initially found to have concerns for a small bowel obstruction versus ileus with a ileocecal mass. She underwent colonoscopy on 06/25 with a biopsy performed of a described "fungating large mass found in the cecum on the IC valve." In the process of her evaluation, a chest CT was obtained which suggested a 2.7 cm subsolid nodule of the apical segment of the RIGHT upper lobe. Pulmonary medicine was consulted to evaluate pulmonary nodule. Patient was seen and evaluated at bedside. She reports some new RIGHT-sided rib pain which she reports is worse with movement. Otherwise, she reports resolve her abdominal discomfort. 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 She was placed on Evista for 5 years. She has been off for the last 2 years. She had an abnormal Pap smear several years ago which had been ruled out as well. Otherwise, the patient reports no history or family history of malignancy. She reports no fevers or night sweats. She denies any loss of appetite or unexplained weight loss. She denies any other bleeding symptoms. Allergies Allergy/AdvReac Type Severity Reaction Status Date / Time Sulfa (Sulfonamide Allergy Intermediate Hives Verified 06/25/22 12:26 Antibiotics) Home Medications Medication Instructions Recorded Confirmed Type albuterol sulfate 90 mcg/actuation 2 puffs inhalation Q4H PRN 01/15/19 06/23/22 Rx aerosol inhaler (Ventolin HFA) shortness of breath or wheezing #18 grams loratadine 10 mg tablet 10 mg PO DAILY #90 tabs 01/15/19 06/23/22 Rx multivitamin (Daily Multi-Vitamin 1 tab PO DAILY #30 tabs 01/15/19 06/23/22 Rx tablet) fluticasone 100 mcg-salmeterol 50 1 puffs inhalation Q12H 07/16/19 06/23/22 History mcg/dose blistr powdr for inhalation (Advair Diskus) lisinopril 5 mg tablet 5 mg PO DAILY #90 tabs 01/18/22 06/23/22 Rx Patient History Medical History Allergic rhinitis Anemia Anxiety Asthma Hypertension, essential, benign Liver lesion Lobular carcinoma in situ of breast Lung mass Mass of cecum Pap smear abnormality of cervix with LGSIL Surgical History H/O colonoscopy 12/29/13 repeat 10yrs H/O lumpectomy H/O oral surgery History of facial surgery History of tubal ligation Family History Grandmother Stroke syndrome Denies family history of Ovarian cancer Prostate cancer Myocardial infarction Breast cancer Colorectal cancer Social History Smoking Status: Never smoker Second Hand Exposure: No; Hx Alcohol Use: No Hx Substance Use: No Preferred Language: Northern Irish Communication Ability: Effective Ehs Specialist Required: No Beliefs That Will Affect Care: Catholic marital status: Current Living Situation: Spouse current occupational status: employed Feels Safe at Home: Yes Assistive Devices: None Review of Systems Review of Systems: A complete 10 point review of systems was reviewed with the patient with pertinent positives and negatives as per history of present illness. All else were negative. Physical Exam Physical Exam: VITAL SIGNS - Vital signs and nursing notes were reviewed. GENERAL - 61-year-old female appearing her stated age who is in no acute distress. Communicates well with provider and answers questions appropriately. HEAD - NC/AT. EYES - PERRL with EOMI bilaterally. Sclera anicteric. EARS - No deformities of external structures noted on gross examination bilaterally. NOSE - Midline and without cyanosis. No epistaxis or purulent drainage noted. MOUTH/OROPHARYNX - Without perioral cyanosis. Buccal mucosa pink and moist. NECK - Neck with FROM. Supple to palpation without palpable lymphadenopathy. LUNGS - Chest wall symmetric without accessory muscle use, intercostals retractions, or central cyanosis. Normal vesicular breath sounds CTA B/L. No wheezes, rales, or rhonchi appreciated. CARDIAC - RRR with S1/S2. No murmur, rubs, or gallops appreciated. No reproducible tenderness to palpation appreciated over the anterior chest wall. ABDOMEN - Abdominal contour flat without pulsations or visible masses. BS normoactive all four quadrants. No tenderness, palpable masses, hepatosplenomegaly, or ascites noted. EXTREMITIES - No clubbing or peripheral cyanosis. No pretibial edema present. +3/5 radial and dorsalis pedis pulses palpated throughout. +5/5 strength noted in UE/LE bilaterally. NEUROLOGIC - Cranial nerves II through XII grossly intact. Sensory intact to light touch throughout. PSYCH - A&Ox3 and cooperates fully with examiner. Pt is very pleasant and interacts well with examiner. Results & Data Results & Data ([facility]) Vital Signs (Past 12 Hours) Vital Signs Temp Pulse Pulse Resp BP Pulse Ox O2 Del Method 06/26/22 10:25 Room Air 06/26/22 08:17 36.7 C 74 17 164/89 H 98 Room Air 06/26/22 07:24 77 06/26/22 02:42 36.8 C 72 16 127/67 95 Room Air PG Care Time/CCT Total # of Minutes Spent Total Time Spent with Patient: Total time spent is greater than 50% in coordination of care (as documented) at patient's floor/unit and/or counseling patient: Coding Level of Care Code 77908 Inpt Consult Level 4 Diagnoses Lung mass R91.8 Mass of cecum K63.89 Asthma J45.909
[2022-06-26] MEDS ORDERED: fentaNYL citrate 100 MCG/2 ML VIAL ONE ×2 (12:00→17:03)
[2022-06-26] MEDS ORDERED: MIDAZOLAM HCL 1 MG/ML 2ML VIAL ONE (12:00)
[2022-06-26] MEDS ORDERED: KETOROLAC 30 MG/ML VIAL IV PRN (12:30)
[2022-06-26] MEDS ORDERED: HYDROmorphone INJ 1 MG/ML SYRINGE IV PRN (12:30)
[2022-06-26] MEDS ORDERED: ATROPINE SULFATE 0.1 MG/ML 10ML SYR IV PRN (12:30)
[2022-06-26] MEDS ORDERED: PROMETHAZINE HCL 12.5 MG in SODIUM CHLORIDE 0.9% 50 ML IV PRN (12:30)
[2022-06-26] MEDS ORDERED: BUPIVACAINE 0.5 % 5 MG/1 ML MPF 30ML VIAL ONE (13:05)
[2022-06-26] MEDS ORDERED: BUPIVACAINE LIPOSOME 1.3% 266 MG/20 ML VIAL ONE (13:05)
[2022-06-26] MEDS ORDERED: cefOXitin 2,000 MG in DEXTROSE 5% 50 ML IV ONE (14:06)
[2022-06-26] MEDS ORDERED: INDOCYANINE GREEN 25 MG VIAL INJ ONE (14:08)
[2022-06-26] MEDS ORDERED: PROPOFOL IV EMULSION 10 MG/ML 20 ML VIAL IV ONE (14:55)
[2022-06-26] MEDS ORDERED: ROCURONIUM BROMIDE 10 MG/ML 5 ML VIAL IV ONE ×3 (14:55→15:35)
[2022-06-26] MEDS ORDERED: DEXAMETHASONE SOD INJ 4 MG/ML VIAL ONE (14:55)
[2022-06-26] MEDS ORDERED: ONDANSETRON INJ 2 MG/ML 2 ML VIAL ONE (14:55)
[2022-06-26] MEDS ORDERED: LIDOCAINE 2% 20 MG/ML 5 ML SYR IV ONE (14:55)
--- NOTE | 2022-06-26 15:46 | Hospitalist Progress Note ---
Date of Service June 26, 2022 Assessment & Plan (1) Mass of cecum: Plan: Re-read of CT concerning for cecal mass in addition to small bowel obstruction. CEA elevated 4.7 ng/ml [06/25] s/p colonoscopy showing fungating large cecal mass - pathology pending General surgery planning on right hemicolectomy later today Appreciate oncology consult - will defer ordering MRI liver if required post operatively. Venofer 300mg IV x2 ordered starting tomorrow. (2) Lung mass: Plan: Appreciate pulm consult - lesion will be reassessed with PET/CT. [address] chest. (3) Small bowel obstruction: Plan: Secondary to obstructing mass as above Continue NPO and IV fluids, diet to be determined by general surgery. (4) Acute blood loss anemia: Plan: s/p 2 packed RBCs [06/25] Repeat Hgb this morning Transferrin sats 4% with ferritin 4.4ng/ml - Venofer 300mg IV x2 ordered post operatively (5) Anemia: Plan: as above for acute blood loss anemia (6) Hypertension, essential, benign: Plan: Hold lisinopril given acute anemia (7) Asthma: Plan: Switch Advair Diskus for Breo Ellipta as per hospital formulary Plan VTE prophylaxis - chemical prophylaxis deferred due to acute anemia Diet - NPO Disposition - continue on med/tele Admission and Anticipated Discharge Date Admission Date: June 24, 2022 Subjective Patient seen pre-operatively. No acute complaints at this time. NPO pending surgery later today. No chest pain, shortness of breath or dizziness. Review of Systems Review of Systems: All systems reviewed & are unremarkable except as noted in Subjective Physical Exam Constitutional: WD/WN, vitals as above Respiratory: normal respiratory effort, lungs clear to auscultation Cardiovascular: RRR, no murmur, no edema Gastrointestinal (Abdomen): Inspection/Auscultation: abdomen normal to inspection and + abdomen distended Percussion/Palpation: abdomen soft; abdomen nontender, no guarding and abdomen not rigid Musculoskeletal: no cyanosis or clubbing, extremities motor strength 5/5 Skin: no rashes, warm and dry Neurologic: moves all extremities and awake; not confused Psychiatric: A+Ox3, euthymic affect Results & Data Results & Data ([facility]) Vital Signs (Past 12 Hours) Vital Signs Temp Pulse Pulse Resp BP Pulse Ox O2 Del Method 06/26/22 12:20 36.8 C 82 18 182/85 H 98 Room Air 06/26/22 11:33 36.9 C 75 19 155/81 H 97 Room Air 06/26/22 10:25 Room Air 06/26/22 08:17 36.7 C 74 17 164/89 H 98 Room Air 06/26/22 07:24 77 PG Care Time/CCT Total # of Minutes Spent Total Time Spent with Patient: Total time spent is greater than 50% in coordination of care (as documented) at patient's floor/unit and/or counseling patient: Coding Level of Care Code 06270 Subseq Hosp Care Lvl 3 Diagnoses Mass of cecum K63.89 Lung mass R91.8 Small bowel obstruction K56.609 Acute blood loss anemia D62 Anemia D64.9 Hypertension, essential, benign I10 Asthma J45.909
[2022-06-26] MEDS ORDERED: NEOSTIGMINE METHYLSULFATE 1 MG/ML 10ML VIAL ONE (16:43)
[2022-06-26] MEDS ORDERED: GLYCOPYRROLATE 0.2 MG/ML VIAL ONE (16:43)
[2022-06-26] MEDS ORDERED: PHENYLEPHRINE HCL 10 MG/ML VIAL ONE (16:48)
--- NOTE | 2022-06-26 17:28 | Post Operative Brief Note ---
PG Immediate Post Op with CF Date of Surgery June 26, 2022 Pre & Post Diagnosis Operation Date: 06/26/22 09:40 Pre-Op Diagnosis: Mass of Cecum Post-Op Diagnosis: Mass of Cecum I identified the patient and participated in the time-out.: Yes Procedure Operation Date: 06/26/22 09:40 Actual Procedures p Robotic Laparoscopic Assisted Right Hemicolectomy(Not Applicable) - Solomon Hopper DO, SEVERO Surgeon Solomon Hopper DO, SEVERO Pear Picker Kimberlyn Mcguire Estimated Blood Loss 25 Findings Consistent with Post-Op Diagnosis No evidence of metastatic disease or carcinomatosis. High ligation of the ileocolic vessel performed. Medial to lateral dissection performed. Due to dilation of the small bowel, elected to perform extracorporeal anastomosis. [id number] functional end-to-end stapled ileocolic anastomosis performed, reinforced with 3-0 silk Lembert sutures. No evidence of leak. Fascia closed in layers, Exparel injected. Specimens Specimen Description: A. right colon Drains Gaytan Catheter (inserted by Anjelica Murray RN, no difficulties) Anesthesia Type General Complications none Disposition Accompanied Patient To Recovery: No Disposition: Recovery Room
--- NOTE | 2022-06-26 17:34 | Operative Report ---
PG Post Operative Report Pre & Post Diagnosis Operation Date: 06/26/22 09:40 Pre-Op Diagnosis: Mass of Cecum Post-Op Diagnosis: Mass of Cecum I identified the patient and participated in the time-out.: Yes Procedure Operation Date: 06/26/22 09:40 Actual Procedures p Robotic Laparoscopic Assisted Right Hemicolectomy(Not Applicable) - Solomon Hopper DO, SEVERO Surgeon Solomon Hopper DO, SEVERO Guest Services Manager Kimberlyn Mcguire Estimated Blood Loss 25 Findings Consistent with Post-Op Diagnosis No evidence of metastatic disease or carcinomatosis. High ligation of the ileocolic vessel performed. Medial to lateral dissection performed. Due to dilation of the small bowel, elected to perform extracorporeal anastomosis. [id number] functional end-to-end stapled ileocolic anastomosis performed, hans nforced with 3-0 silk Lembert sutures. No evidence of leak. Fascia closed in layers, Exparel injected. Specimens Right colon Anesthesia Type General Complications none Disposition Accompanied Patient To Recovery: No Disposition: Recovery Room Indications 61-year-old female presented to the emergency department with evidence of a partial small bowel obstruction and a mass in her cecum. She underwent a colonoscopy on 25 June which showed a partially obstructing mass at her ileocecal valve. After discussion with the patient we agreed to proceed with robotic assisted laparoscopic partial colectomy. The risks of the procedure were discussed, all questions were answered, and the patient agreed to proceed with surgery as planned. Description of Procedure The patient was properly identified, consented, and taken to the operating room where she was placed in the supine position. General endotracheal anesthesia was induced. An OG tube, Gaytan catheter, SCDs and a safety belt were placed. Preoperative antibiotics were administered. The patient's abdomen was prepped and draped in the standard sterile fashion. A surgical timeout was performed and all parties were in agreement that this was the correct patient and procedure to be performed and we continued as planned. An incision was made just above the umbilicus and to the left of midline. Veress needle was inserted and saline drop test confirmed entry to the abdomen. The abdomen was insufflated with carbon dioxide which the patient tolerated without incident. Veress needle was removed and the abdomen was entered using the Optiview technique and a 5 mm camera. The introducer was removed and the abdomen inspected. No damage from initial trocar placement or Veress needle placement was identified. There were no significant abnormalities to the 4 quadrants of the abdomen, specifically there was no evidence of metastatic disease or carcinomatosis. 8 mm robotic ports were then placed on the infraumbilical midline and right lower quadrant. A 12 mm port was placed in the left upper quadrant. An additional 5 mm assistant media planner port was placed in the left lower quadrant. The patient was placed in reverse Trendelenburg position and rotated towards the left. The small bowel was swept out of the way into the left upper quadrant. The omentum was placed superiorly. The small bowel was dilated secondary to the partially obstructing mass. The robot was then docked and the camera and robotic instruments were inserted. The cecum was then grasped and elevated towards the anterior abdominal wall revealing the ileocolic vascular pedicle. The peritoneum just underneath this was incised with cautery scissors. Blunt dissection was then used to isolate the vessels. The vessels were circumferentially dissected. The robotic vessel sealer was then used to divide the ileocolic vein and artery at their base. Hemostasis appeared excellent. We then continued the dissection from a medial to lateral approach dissecting the retroperitoneal structures posteriorly away from the small bowel and colonic mesentery. We continued this dissection until we entered the lesser sac and continued laterally until the colon was nearly free of all adhesions except for the white line of Toldt. The duodenum and retroperitoneal structures were dissected posteriorly. The right ureter was identified and preserved. Once the medial to lateral dissection was completed, we then performed a lateral dissection using the cautery scissors to take down the white line of Toldt along the right colon. The dissection was continued distally to the transverse colon and the hepatic flexure was mobilized. The distal ileum was freed from its peritoneal attachments. The vessel sealer was then used to divide the mesentery. The right branch of the middle colic vessel was taken with the vessel sealer and hemostasis was good. The colonic staple point was chosen. 60 mm blue loaded stapler was then clamped across the bowel. 2.5 mg of ICG were injected. Firefly was utilized to assess for blood flow at the staple line which appeared to be excellent. The stapler was fired. We then chose the small bowel division segment. The mesentery was taken with the vessel sealer. We repeated the procedure of clamping the small bowel with a blue loaded 60 mm stapler and injecting ICG to assess the blood flow which appeared to be excellent. The stapler was fired. The specimen was placed in the right upper quadrant over the liver. Both staple lines appeared healthy and had good blood flow. They appeared to lie well next to each other. Unfortunately, the small bowel was quite dilated from the partial obstruction it did not think it was safe to perform an intracorporeal anastomosis over concern for the spillage of succus. The robot was undocked and laparoscopy was ceased. A transverse right upper quadrant incision was made through the skin and deepened down to the fascia. The anterior fascia was opened in a transverse fashion. The muscle was bluntly and the posterior fascia was then opened in a transverse fashion. An Florencio wound protector was placed into the wound. The specimen was grasped and removed and passed off the table to be sent to pathology. The staple lines of the small bowel and colon were exteriorized. We ensured no twisting of the mesentery and the bowel appeared to reach easily. Enterotomies were made in both the small bowel and colon. A ysxv-io-howi functional end-to-end anastomosis was created with subsequent fires of the endoscopic stapler. The common enterotomy and prior staple lines were then resected using the endoscopic stapler. Staple line was reinforced with interrupted 3-0 silk Lembert sutures. The mesenteric defect was not closed. There was no evidence of a leak and the anastomosis appeared healthy and widely patent. Hemostasis appeared to be good and the anastomosis appeared to lie straight with no twist in it. The anastomosis was allowed to drop back into the abdomen. The posterior fascia was closed with a running #0 PDS suture. The wound was irrigated. The anterior fascia was closed using a running #0 PDS suture. The fascia and skin of the incision was injected with Exparel mixed with 0.5% Marcaine. The left upper quadrant 12mm port site fascia was closed with an 0 Vicryl [id number] suture. The wound was irrigated. All incision sites were closed with 4-0 Monocryl subcuticular suture. Dermabond was placed over the wounds. The patient was extubated in the operating room and taken to the PACU where she recovered without apparent incident. All sponge, instrument, and needle counts were correct. The patient tolerated the procedure well. The colon specimen was sent to Pathology. The physician's assistant media planner was present and scrubbed for the entirety of the case. She was critical in positioning the patient, prepping and draping, retraction and exposure, driving the laparoscope, resection of the specimen and creation of the anastomosis, closure the incisions, and placement of the dressings. I attest to the content of the Intraoperative Record and any orders documented therein. Any exceptions are noted below.
[2022-06-26] MEDS: HYDROmorphone INJ 0.5 MG/0.5 ML SYR IV PRN ×2 (18:37→22:12)
[2022-06-26] MEDS: ONDANSETRON INJ 2 MG/ML 2 ML VIAL IV PRN (18:42)
--- NOTE | 2022-06-26 18:57 | Anesthesiology Progress Note ---
Date of Service June 26, 2022 Anesthesia Post Procedure Vital Signs Vital Signs: Temp Pulse Pulse Pulse Resp BP BP 06/26/22 18:10 67 16 143/77 H 06/26/22 18:05 36.3 C L 70 16 134/62 06/26/22 17:55 75 15 139/71 06/26/22 17:45 62 15 140/75 06/26/22 17:38 36.2 C L 72 14 134/87 06/26/22 12:20 36.8 C 82 18 182/85 H 06/26/22 11:33 36.9 C 75 19 155/81 H 06/26/22 10:25 06/26/22 08:17 36.7 C 74 17 164/89 H 06/26/22 07:24 77 06/26/22 02:42 36.8 C 72 16 127/67 06/25/22 21:58 80 06/25/22 21:02 37.2 C 79 18 163/78 H 06/25/22 20:03 37.2 C 76 18 157/83 H 06/25/22 19:03 37.2 C 84 18 173/96 H 06/25/22 19:03 37.2 C 84 18 173/96 H Pulse Ox O2 Del Method O2 Flow Rate 06/26/22 18:10 92 Room Air 06/26/22 18:05 95 Room Air 06/26/22 17:55 94 Room Air 06/26/22 17:45 100 Oxymask 06/26/22 17:38 96 Oxymask 06/26/22 12:20 98 Room Air 06/26/22 11:33 97 Room Air 06/26/22 10:25 Room Air 06/26/22 08:17 98 Room Air 06/26/22 07:24 06/26/22 02:42 95 Room Air 06/25/22 21:58 06/25/22 21:02 96 06/25/22 20:03 94 06/25/22 19:03 95 06/25/22 19:03 95 Pain Intensity Abdomen: Pain Intensity: 5 Transfer of Care Handoff Completed per policy Notes Mental Status: alert / awake / arousable and participated in evaluation Patient Amnestic to Procedure: Yes Nausea / Vomiting: adequately controlled Pain: adequately controlled Airway Patency, RR, SpO2: stable & adequate BP & HR: stable & adequate Hydration State: stable & adequate Anesthetic Complications: no major complications apparent and Pt Satisfied with anesthetic care
[2022-06-26] MEDS ORDERED: KETOROLAC TROMETHAMINE 15 MG/ML VIAL IV PRN (20:27)
[2022-06-26] MEDS: ACETAMINOPHEN 1,000 MG/100 ML VIAL IV SCH (22:13)
[2022-06-26] MEDS: cefOXitin 2,000 MG in DEXTROSE 5% 50 ML IV SCH (22:42)
[2022-06-27] MEDS: ACETAMINOPHEN 1,000 MG/100 ML VIAL IV SCH ×3 (05:10→21:45)
[2022-06-27] MEDS: cefOXitin 2,000 MG in DEXTROSE 5% 50 ML IV SCH ×3 (05:12→15:30)
--- NOTE | 2022-06-27 08:39 | Surgery Progress Note ---
Date of Service June 27, 2022 Assessment & Plan (1) Mass of cecum: Plan: POD#1 robotic assisted right hemicolectomy WBC 6.6, Hbg 9.7, Cr: 0.5. Vital signs stable 24 hour post op abx Continue standing Tylenol, Toradol, and prn narcotic for pain control Clear liquids this AM, will check on later and possibility of advancing to fulls Maintenance IVF. She is voiding Ambulation and IS is encouraged Admission and Anticipated Discharge Date Admission Date: June 24, 2022 Supervising Physician Co-Signing Physician Notes Patient seen and examined, labs reviewed, agree with above. POD #1 robotic assisted right hemicolectomy. Overall doing well, tolerating clear liquids without any nausea. No bowel movement or flatus yet. She has been walking to the bathroom several times and is planning to get up and walk this afternoon. After movement she does have some increased abdominal pain which is controlled with her pain meds. She is currently afebrile and stable vitals. Her abdomen is soft, probably tender to palpation, incisions with Dermabond, clean dry and intact, no infection. WBC normal, H&H stable. We will advance to full liquids, await return of bowel function. Complete 24 hours of IV antibiotics. Lovenox started today. 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 Pulmonology is following regarding the lung nodules, oncology is following and she will likely need chemotherapy later after she recovers from surgery, we will plan on placing a port as an outpatient. Subjective Patient is doing well. Having a little bit more pain than yesterday. Tolerating clear liquids, no nausea/vomiting. She is voiding. Physical Exam Physical Exam: awake/alert, no distress Respiratory: normal respiratory effort Gastrointestinal (Abdomen): Inspection/Auscultation: + abdomen distended (mild) and + abdominal surgical incision (c/d/i no signs of infection, mild leon incisional ecchymosis) Percussion/Palpation: + abdomen tender (expected leon incisional discomfort to palpation ) and abdomen soft Results & Data ([facility]) Vital Signs (Past 12 Hours) Vital Signs Temp Pulse Pulse Resp BP BP Pulse Ox 06/27/22 07:35 37.1 C 66 18 124/72 95 06/27/22 07:23 61 06/27/22 00:00 68 06/27/22 03:51 36.8 C 68 20 113/66 92 06/27/22 03:07 37.2 C 68 18 112/66 92 06/26/22 23:30 36.6 C 60 20 114/65 92 O2 Del Method 06/27/22 07:35 Room Air 06/27/22 07:23 06/27/22 00:00 06/27/22 03:51 Room Air 06/27/22 03:07 Room Air 06/26/22 23:30 Room Air PG Care Time/CCT Total # of Minutes Spent Total Time Spent with Patient: Total time spent is greater than 50% in coordination of care (as documented) at patient's floor/unit and/or counseling patient: Coding Level of Care Code None Diagnoses Mass of cecum K63.89
[2022-06-27] MEDS: LACTATED RINGER'S 1,000 ML IV SCH ×2 (09:08→20:41)
[2022-06-27] MEDS: KETOROLAC TROMETHAMINE 15 MG/ML VIAL IV SCH ×3 (09:16→19:29)
[2022-06-27] MEDS: FLUTICASONE/VILANTEROL 100/25MCG 14 PUFFS/INHALER INH SCH (09:17)
[2022-06-27] MEDS: IRON SUCROSE 300 MG in SODIUM CHLORIDE 0.9% 250 ML IV SCH (09:17)
[2022-06-27] MEDS: PANTOprazole 40 MG in SYRINGE 0 ML IV SCH (09:17)
[2022-06-27 09:37] LABS: Basophils # (auto) 0.02 K/uL (0-0.2); Basophils % (auto) 0.3 %; Eosinophils # (auto) 0.01 K/uL (0-0.50); Eosinophils % (auto) 0.1 %; Hematocrit (blood only) 31.4 % (34.1-44.9); Hemoglobin 9.7 g/dl (12.0-16.0); Immature Granulocytes # (auto) 0.02 K/uL (0.00-0.02); Immature Granulocytes % (auto) 0.3 %; Lymphocytes # (auto) 1.11 K/uL (1.2-3.4); Mean Corpuscular Hemoglobin 23.2 pg (25.0-34.0); Mean Corpuscular Hgb Conc 30.9 g/dL (32.0-36.0); Mean Corpuscular Volume 75.1 fL (80.0-100.0); Mean Platelet Volume 9.9 fL (9.4-12.3); Monocytes # (auto) 0.33 K/uL (0.24-0.82); Monocytes % (auto) 4.8 %; Neutrophils # (auto) 5.43 K/uL (1.4-6.5); Neutrophils % (auto) 78.5 %; Platelet Count 335 K/uL (130-400); RDW Coefficient of Variation 16.9 % (11.5-14.5); Red Blood Count 4.18 M/uL (3.93-5.22); White Blood Count 6.92 K/ul (4.8-10.8)
--- NOTE | 2022-06-27 10:02 | Pulmonology Progress Note ---
Date of Service June 27, 2022 Assessment & Plan (1) Lung mass: Plan: 61-year-old female presenting initially with concerning symptoms for possible obstruction with findings suspicious of partially obstructing cecal mass suspicious for adenocarcinoma pulmonary nodules found in the RIGHT upper and middle lobes. * Patient doing well clinically s/p hemicolectomy. * Reviewed our discussion from yesterday and recommendations including close surveillance of the pulmonary lesions over time. * Defer to oncology for continued management. * Happy to see patient in the outpatient setting to follow pulmonary lesions. Thank you for for allowing us to participate in the care of this patient. (2) Mass of cecum: (3) Asthma: Admission and Anticipated Discharge Date Admission Date: June 24, 2022 Supervising Physician Co-Signing Physician Notes Patient seen and examined. Discussed with critical care JOSE E. The patient is awake alert and sitting up at the bedside. She is off oxygen. She is recovering well. She is anxious to be dismissed from the hospital. She is tolerated surgery well without any significant respiratory compromise. We again reviewed her imaging studies. I am less suspicious of the apical nodule but more suspicious of the middle lobe nodule. It may be at the detection limit of PET scan. Not amenable to bronchoscopy. I think the size would make CT-guided FNA low yield and difficult. Will await final path. If the lung lesions are malignant, differential would be primary lung cancer versus oligometastatic disease and PET scan may help differentiate. I will need to get PFTs before we could consider potential resection and these will need to be deferred until the patient is recovered from her current surgery. I would be happy to see her in the outpatient setting. She would benefit from discussion at multidisciplinary conference. Pulmonary will sign off at this point time. Feel free to contact us with questions or concerns Subjective Patient seen and evaluated at bedside this morning. She reports having some discomfort postoperatively, but has been adequately controlled with her pain management regime. Otherwise she has been doing well postoperatively and is without other complaints at this time. Review of Systems Review of Systems: A complete 6 point review of systems was reviewed with the patient with pertinent positives and negatives as per history of present illness. All else were negative. Physical Exam Physical Exam: VITAL SIGNS - Vital signs and nursing notes were reviewed. GENERAL - 61-year-old female appearing her stated age who is in no acute distress. Communicates well with provider and answers questions appropriately. LUNGS - Chest wall symmetric without accessory muscle use, intercostals retractions, or central cyanosis. Normal vesicular breath sounds CTA B/L. No wheezes, rales, or rhonchi appreciated. CARDIAC - RRR with S1/S2. No murmur, rubs, or gallops appreciated. No reproducible tenderness to palpation appreciated over the anterior chest wall. PSYCH - A&Ox3 and cooperates fully with examiner. Pt is very pleasant and interacts well with examiner. Results & Data Results & Data ([facility]) Vital Signs (Past 12 Hours) Vital Signs Temp Pulse Pulse Resp BP BP Pulse Ox 06/27/22 07:35 37.1 C 66 18 124/72 95 06/27/22 07:23 61 06/27/22 00:00 68 06/27/22 03:51 36.8 C 68 20 113/66 92 06/27/22 03:07 37.2 C 68 18 112/66 92 06/26/22 23:30 36.6 C 60 20 114/65 92 O2 Del Method 06/27/22 07:35 Room Air 06/27/22 07:23 06/27/22 00:00 06/27/22 03:51 Room Air 06/27/22 03:07 Room Air 06/26/22 23:30 Room Air PG Care Time/CCT Total # of Minutes Spent Total Time Spent with Patient: Total time spent is greater than 50% in coordination of care (as documented) at patient's floor/unit and/or counseling patient: Coding Level of Care Code 94068 Subseq Hosp Care Lvl 2 Diagnoses Lung mass R91.8 Mass of cecum K63.89 Asthma J45.909
[2022-06-27 10:03] LABS: BUN Creatinine Ratio 12.2 (10-20); Calcium 8.7 mg/dl (8.5-10.1); Creatinine Clr Calc Pharmacy 76.4 ml/min; Est GFR (African American) 89.5 ml/min; Est GFR (Non-African American) 77.2 ml/min; Potassium 3.7 mmol/L (3.5-5.1)
[2022-06-27] MEDS: ENOXAPARIN INJ 40 MG/0.4 ML SYR SQ SCH (11:04)
--- NOTE | 2022-06-27 11:12 | Hospitalist Progress Note ---
Date of Service June 27, 2022 Assessment & Plan (1) Mass of cecum: Plan: CT a/p on 06/23 with concern for cecal mass in addition to small bowel obstruction. CEA elevated 4.7 ng/ml. - S/p colonoscopy on 06/25 showing large, fungating large cecal mass - pathology pending - S/p right hemicolectomy on 06/26. Pathology also pending. - Appreciate oncology consult on 06/26 - Recommend liver MRI to look at hepatic mass. Will get once she is more fully recovered from surgery. (2) Lung mass: Plan: Appreciate pulm consult - lesion will be reassessed with PET/CT. [address] chest. - No further inpatient needs. (3) Small bowel obstruction: Plan: Secondary to obstructing mass as above. - Resuming diet after 06/26 hemicolectomy. Advance as above. (4) Acute blood loss anemia: Plan: S/p 2 packed RBCs on 06/25. - Venofer 300mg IV x2 ordered post operatively - Monitor hgb -> Stable today at 9.7. (5) Anemia: Plan: As above for acute blood loss anemia. (6) Hypertension, essential, benign: Plan: BP today is 125/70. - Hold lisinopril given blood loss from cancer & surgery. Restart as needed. (7) Asthma: Plan: No shortness of breath today. - Switched Advair Diskus for Breo Ellipta as per hospital formulary Plan VTE prophylaxis - Lovenox 40 mg SQ daily Admission and Anticipated Discharge Date Admission Date: June 24, 2022 Subjective Doing well today, though understandably anxious about her diagnosis and future plans/treatment/work-up. Discussed as best I could the next steps including seeing what pathology returns, connecting with oncology, plan for PET scan. Otherwise, will keep her here for surgical recovery, and then plan on rest of work-up outpatient. Reports no fevers/chills, chest pain, shortness of breath, abdominal pain, nausea, or vomiting. Physical Exam Constitutional: WD/WN, vitals as above Eyes: EOM intact bilaterally; no conjunctival abnormality ENMT: external ear and nose normal, oropharynx normal Neck: trachea midline, no thyromegaly normal visual inspection Respiratory: normal respiratory effort, lungs clear to auscultation no respiratory distress Cardiovascular: RRR, no murmur, no edema Gastrointestinal (Abdomen): Inspection/Auscultation: + abdominal surgical incision; abdomen not distended Ostomy present Musculoskeletal: no cyanosis or clubbing, extremities motor strength 5/5 Skin: no rashes, warm and dry Neurologic: moves all extremities and awake Psychiatric: Orientation: alert, oriented to person and cooperative Results & Data Results & Data ([facility]) Vital Signs (Past 12 Hours) Vital Signs Temp Pulse Pulse Resp BP BP Pulse Ox 06/27/22 07:35 37.1 C 66 18 124/72 95 06/27/22 07:23 61 06/27/22 00:00 68 06/27/22 03:51 36.8 C 68 20 113/66 92 06/27/22 03:07 37.2 C 68 18 112/66 92 06/26/22 23:30 36.6 C 60 20 114/65 92 O2 Del Method 06/27/22 07:35 Room Air 06/27/22 07:23 06/27/22 00:00 06/27/22 03:51 Room Air 06/27/22 03:07 Room Air 06/26/22 23:30 Room Air PG Care Time/CCT Total # of Minutes Spent Total Time Spent with Patient: Total time spent is greater than 50% in coordination of care (as documented) at patient's floor/unit and/or counseling patient: Coding Level of Care Code 27382 Subseq Hosp Care Lvl 3 Diagnoses Mass of cecum K63.89 Lung mass R91.8 Small bowel obstruction K56.609 Acute blood loss anemia D62 Anemia D64.9 Hypertension, essential, benign I10 Asthma J45.909
[2022-06-27] MEDS: HYDROmorphone INJ 0.5 MG/0.5 ML SYR IV PRN (17:54)
[2022-06-27] MEDS: guaiFENesin 600 MG TABCR PO SCH (19:30)
[2022-06-27] MEDS: PANTOprazole 40 MG TAB PO SCH (19:31)
[2022-06-28] MEDS: KETOROLAC TROMETHAMINE 15 MG/ML VIAL IV SCH (04:06)
[2022-06-28] MEDS: ACETAMINOPHEN 1,000 MG/100 ML VIAL IV SCH (06:00)
[2022-06-28] MEDS: LACTATED RINGER'S 1,000 ML IV SCH (06:01)
[2022-06-28] MEDS: guaiFENesin 600 MG TABCR PO SCH ×2 (06:02→21:32)
[2022-06-28] MEDS ORDERED: oxyCODONE/ACETAMINOPHEN 5mg/325mg TAB PO PRN ×2 (08:40)
--- NOTE | 2022-06-28 08:43 | Surgery Progress Note ---
Date of Service June 28, 2022 Assessment & Plan (1) Mass of cecum: Plan: POD#2 robotic assisted right hemicolectomy labs pending low fiber diet later today or tomorrow stop IVF, switch to po analgesics Admission and Anticipated Discharge Date Admission Date: June 24, 2022 Supervising Physician Co-Signing Physician Notes Patient seen and examined, labs reviewed, agree with above. POD #2 robotic assisted right hemicolectomy. Overall doing well, tolerated a full liquid diet for breakfast. She does feel like the liquids are too sweet and would like to try some toast. She had several loose bowel movements overnight and this morning. She has been ambulating. Her pain is controlled and she has not taken any pain meds today. On exam she is afebrile with stable vitals. Her abdomen is soft, appropriately tender to palpation. Port sites with Dermabond, no infection or hematoma/seroma. Labs reviewed and are unremarkable, normal WBC, H&H stable. Will advance her to a low fiber diet. She is scheduled for an MRI this afternoon. Plan for likely discharge tomorrow morning. Wound care instructions and activity restrictions reviewed, return precautions given. Dr. Vega covering over the weekend. Subjective 2 BMs overnight/this AM, tolerating full liquids, some pain yesterday after ambulating Physical Exam Gastrointestinal (Abdomen): Inspection/Auscultation: abdomen not distended Percussion/Palpation: abdomen soft Results & Data ([facility]) Vital Signs (Past 12 Hours) Vital Signs Temp Pulse Pulse Resp BP Pulse Ox O2 Del Method 06/28/22 07:59 36.7 C 61 20 126/79 95 Room Air 06/28/22 07:13 65 06/28/22 03:00 36.9 C 65 16 145/77 H 93 Room Air 06/28/22 00:00 68 06/27/22 23:26 37.0 C 74 16 111/66 91 Room Air PG Care Time/CCT Total # of Minutes Spent Total Time Spent with Patient: Total time spent is greater than 50% in coordination of care (as documented) at patient's floor/unit and/or counseling patient: Coding Level of Care Code None Diagnoses Mass of cecum K63.89
[2022-06-28] MEDS: IRON SUCROSE 300 MG in SODIUM CHLORIDE 0.9% 250 ML IV SCH (08:45)
[2022-06-28] MEDS: FLUTICASONE/VILANTEROL 100/25MCG 14 PUFFS/INHALER INH SCH (08:49)
[2022-06-28] MEDS: ENOXAPARIN INJ 40 MG/0.4 ML SYR SQ SCH (08:50)
[2022-06-28] MEDS: PANTOprazole 40 MG TAB PO SCH ×2 (08:50→21:32)
[2022-06-28 09:00] LABS: Basophils # (auto) 0.03 K/uL (0-0.2); Basophils % (auto) 0.4 %; Eosinophils # (auto) 0.15 K/uL (0-0.50); Eosinophils % (auto) 2.2 %; Hematocrit (blood only) 27.8 % (34.1-44.9); Hemoglobin 8.6 g/dl (12.0-16.0); Immature Granulocytes # (auto) 0.04 K/uL (0.00-0.02); Immature Granulocytes % (auto) 0.6 %; Lymphocytes # (auto) 1.06 K/uL (1.2-3.4); Lymphocytes % (auto) 15.8 %; Mean Corpuscular Hemoglobin 23.2 pg (25.0-34.0); Mean Corpuscular Hgb Conc 30.9 g/dL (32.0-36.0); Mean Corpuscular Volume 75.1 fL (80.0-100.0); Mean Platelet Volume 10.3 fL (9.4-12.3); Monocytes # (auto) 0.42 K/uL (0.24-0.82); Monocytes % (auto) 6.2 %; Neutrophils # (auto) 5.03 K/uL (1.4-6.5); Neutrophils % (auto) 74.8 %; Platelet Count 287 K/uL (130-400); RDW Coefficient of Variation 17.9 % (11.5-14.5); RDW Standard Deviation 46.7 fL (36.4-46.3); White Blood Count 6.73 K/ul (4.8-10.8)
[2022-06-28 09:26] LABS: BUN Creatinine Ratio 15.2 (10-20); Calcium 8.2 mg/dl (8.5-10.1); Creatinine Clr Calc Pharmacy 95.3 ml/min; Est GFR (African American) 110.5 ml/min; Est GFR (Non-African American) 95.3 ml/min; Potassium 3.8 mmol/L (3.5-5.1)
[2022-06-28] MEDS: ONDANSETRON INJ 2 MG/ML 2 ML VIAL IV PRN (11:48)
[2022-06-28] MEDS ORDERED: oxyCODONE HCL IR 5 MG TAB (IMMEDIATE RELEASE) PO PRN (12:56)
[2022-06-28] MEDS ORDERED: IBUPROFEN 200 MG TAB PO PRN (12:56)
[2022-06-28] MEDS ORDERED: ACETAMINOPHEN 325 MG TAB PO PRN (12:56)
[2022-06-28] MEDS: oxyCODONE HCL IR 5 MG TAB (IMMEDIATE RELEASE) PO PRN ×2 (13:21→21:32)
--- NOTE | 2022-06-28 16:15 | Hospitalist Progress Note ---
Date of Service June 28, 2022 Assessment & Plan (1) Mass of cecum: Plan: CT a/p on 06/23 with concern for cecal mass in addition to small bowel obstruction. CEA elevated 4.7 ng/ml. - S/p colonoscopy on 06/25 showing large, fungating large cecal mass - biopsy shows adenocarcinoma. - S/p right hemicolectomy on 06/26. Pathology pending for staging. - Appreciate oncology consult on 06/26 - Recommend liver MRI to look at hepatic mass. Will order today. (2) Lung mass: Plan: Appreciate pulm consult - lesion will be reassessed with PET/CT. [address] chest. - No further inpatient needs. (3) Small bowel obstruction: Plan: Secondary to obstructing mass as above. - Resuming diet after 06/26 hemicolectomy. Advance as above. (4) Acute blood loss anemia: Plan: S/p 2 packed RBCs on 06/25. - Venofer 300mg IV x2 ordered post operatively - Monitor hgb -> Down today at 8.6 from 9.7. No signs of bleeding. Assuming just natural shifts after surgery, etc. (5) Anemia: Plan: As above for acute blood loss anemia. (6) Hypertension, essential, benign: Plan: BP today is 145/70. - Hold lisinopril given blood loss from cancer & surgery. Restart as needed. (7) Asthma: Plan: No shortness of breath today. - Switched Advair Diskus for Breo Ellipta as per hospital formulary Plan VTE prophylaxis - Lovenox 40 mg SQ daily Admission and Anticipated Discharge Date Admission Date: June 24, 2022 Subjective Doing well today. Having BMs through ostomy. Overall, doing well. Reports no fevers/chills, chest pain, shortness of breath, abdominal pain, nausea, or vomiting. Physical Exam Constitutional: WD/WN, vitals as above Eyes: EOM intact bilaterally; no conjunctival abnormality ENMT: external ear and nose normal, oropharynx normal Neck: trachea midline, no thyromegaly normal visual inspection Respiratory: normal respiratory effort, lungs clear to auscultation no re spiratory distress Cardiovascular: RRR, no murmur, no edema Gastrointestinal (Abdomen): Inspection/Auscultation: + abdominal surgical incision; abdomen not distended Ostomy Musculoskeletal: no cyanosis or clubbing, extremities motor strength 5/5 Skin: no rashes, warm and dry Neurologic: moves all extremities and awake Psychiatric: Orientation: alert, oriented to person and cooperative Results & Data Results & Data ([facility]) Vital Signs (Past 12 Hours) Vital Signs Temp Pulse Pulse Resp BP Pulse Ox O2 Del Method 06/28/22 15:00 37.2 C 66 20 144/81 H 91 Room Air 06/28/22 11:03 36.6 C 66 18 151/85 H 97 Room Air 06/28/22 08:00 Room Air 06/28/22 07:59 36.7 C 61 20 126/79 95 Room Air 06/28/22 07:13 65 PG Care Time/CCT Total # of Minutes Spent Total Time Spent with Patient: Total time spent is greater than 50% in coordination of care (as documented) at patient's floor/unit and/or counseling patient: Coding Level of Care Code 12137 Subseq Hosp Care Lvl 3 Diagnoses Mass of cecum K63.89 Lung mass R91.8 Small bowel obstruction K56.609 Acute blood loss anemia D62 Anemia D64.9 Hypertension, essential, benign I10 Asthma J45.909
[2022-06-28] MEDS ORDERED: PNEUMOCOCCAL POLYSACCHARIDES 25 MCG/0.5 ML VIAL/SYR IM ONE (20:20)
[2022-06-28] MEDS ORDERED: GADOXETATE DISODIUM IV ONE (20:55)
--- NOTE | 2022-06-28 21:34 | Magnetic Resonance Report ---
MRI OF THE ABDOMEN COMBO; MRCP CLINICAL HISTORY: Liver lesions. Right-sided colon mass. COMPARISON STUDY: Abdominal CT dated 06/23/2022. TECHNIQUE: MRI of the abdomen is performed transverse T1 and T2-weighted sequences in the axial and c oronal planes. Contrast enhanced sequences were acquired following the IV administration of 10 cc vi ew of Eovist. Diffusion-weighted imaging and subtraction imaging number utilized. High-resolution MRC P images were obtained. 3-D reformats are created and assessed. FINDINGS: Lower chest: Dependent atelectasis is noted at the lung bases. No pleural effusion is identified. The heart is enlarged without pericardial effusion. Liver: The liver is enlarged, measuring 21.6 cm in length. The liver shows diffusely diminished signa l on the T2-weighted sequences and increased signal on the opposed phase images suggesting iron overl oad. The surface contour is normal. No intrahepatic biliary ductal dilatation is seen. The hepatic ve ins and portal veins are patent. A 9 mm lesion in the dome of the liver on axial opposed phase image #17 contains macroscopic fat and is typical for a lipoma. A subcentimeter hypodensity in the inferior right lobe is T2 hyperintense and likely represents a tiny cyst. No enhancing hepatic lesion is seen . Gallbladder/MRCP: Layering material within the gallbladder could represent vicariously excreted contr ast versus sludge. There is no intra or extrahepatic biliary ductal dilatation. The common bile duct measures up to 4.5 mm diameter. No intraluminal filling defects are seen to suggest choledocholithias is. Pancreas divisum is suggested. The pancreatic duct is normal in caliber. Spleen: Normal in size and signal intensity. Pancreas: Unremarkable. Adrenal glands: Unremarkable. Kidneys: The kidneys are normal in size and without hydronephrosis. The kidneys enhance and excrete s ymmetrically. There is a subcentimeter cyst seen on the right. Abdominal colon are normal in course and caliber. Bowel: Distended loops of small bowel are again noted and indicate obstruction when correlated with radha cochran's CT scan. The right colonic mass indication lymphadenopathy seen by CT is not well seen on this MRI examination. Peritoneum: There is a small volume of perisplenic ascites. Lymphadenopathy: None. Skeletal structures: Visualized skeletal structures times are normal marrow signal intensity. IMPRESSION: 1. There is no evidence of hepatic metastatic disease. 2. 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 An con tional subcentimeter hypodensity in the right lobe likely represent a cyst. 3. Dilated loops of small bowel are consistent with a bowel obstruction when correlated with today's abdominal CT scan. 4. The right colonic mass and adjacent lymphadenopathy seen by CT is not well visualized by MRI. 5. The liver is enlarged with signal characteristics suggesting iron overload. 6. Small volume perihepatic ascites. 7. Additional findings as above. ACT 112: Negative or not required by law. Electronically signed by: Roman Stone M.D. 06/28/2022 9:32 PM
[2022-06-29 06:25] LABS: Basophils # (auto) 0.05 K/uL (0-0.2); Basophils % (auto) 0.8 %; Eosinophils # (auto) 0.33 K/uL (0-0.50); Eosinophils % (auto) 5.1 %; Hematocrit (blood only) 30.8 % (34.1-44.9); Hemoglobin 9.4 g/dl (12.0-16.0); Immature Granulocytes # (auto) 0.05 K/uL (0.00-0.02); Immature Granulocytes % (auto) 0.8 %; Lymphocytes % (auto) 21.8 %; Mean Corpuscular Hemoglobin 23.4 pg (25.0-34.0); Mean Corpuscular Hgb Conc 30.5 g/dL (32.0-36.0); Mean Corpuscular Volume 76.6 fL (80.0-100.0); Mean Platelet Volume 9.8 fL (9.4-12.3); Monocytes # (auto) 0.45 K/uL (0.24-0.82); Neutrophils # (auto) 4.14 K/uL (1.4-6.5); Neutrophils % (auto) 64.5 %; Platelet Count 322 K/uL (130-400); RDW Coefficient of Variation 18.7 % (11.5-14.5); RDW Standard Deviation 49.5 fL (36.4-46.3); Red Blood Count 4.02 M/uL (3.93-5.22); White Blood Count 6.42 K/ul (4.8-10.8)
[2022-06-29 06:50] LABS: Albumin Globulin Ratio 1.1 (0.9-2); Albumin Level 3.2 gm/dl (3.4-5.0); BUN Creatinine Ratio 14.5 (10-20); Bilirubin,Total 0.4 mg/dl (0.2-1.0); Calcium 8.2 mg/dl (8.5-10.1); Creatinine Clr Calc Pharmacy 91.2 ml/min; Est GFR (African American) 108.9 ml/min; Globulin 2.8 gm/dl (2.5-4.0); Magnesium 1.9 mg/dl (1.7-2.4); Potassium 3.5 mmol/L (3.5-5.1)
[2022-06-29] MEDS: FLUTICASONE/VILANTEROL 100/25MCG 14 PUFFS/INHALER INH SCH (07:56)
[2022-06-29] MEDS: ENOXAPARIN INJ 40 MG/0.4 ML SYR SQ SCH (07:56)
[2022-06-29] MEDS: guaiFENesin 600 MG TABCR PO SCH (07:57)
[2022-06-29] MEDS: PANTOprazole 40 MG TAB PO SCH (07:57)
[2022-06-29] MEDS: oxyCODONE HCL IR 5 MG TAB (IMMEDIATE RELEASE) PO PRN (07:59)
--- NOTE | 2022-06-29 08:10 | Hematology/Oncology Prog Note ---
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 Staging imaging obtained on admission revealed 2.7 cm subsolid nodule of the apical segment right upper lobe with 1.3 cm central solid component and 4 mm right middle lobe solid nodule. Pulmonology recommended repeat imaging in [address] also revealed liver lesion for which MRI abdomen was obtained which was negative for intrahepatic metastatic disease. -Await final pathology results from recent hemicolectomy. Based on her presentation, she would most likely require adjuvant chemotherapy with either 6 months of FOLFOX or 3 months of CAPOX -Await BRAF mutation analysis on tumor sample. If negative, she would need genetic testing to rule out Francis syndrome -We will discuss her case at tumor board regarding lung lesions and whether they are suspicious enough for CT-guided biopsy since this would have the potential impact on treatment strategy. May need to obtain PET/CT based on this discussion -Will arrange for outpatient follow-up with me in oncology clinic sometime next week to discuss final pathology from hemicolectomy as well as plan for adjuvant chemotherapy Admission and Anticipated Discharge Date Admission Date: June 24, 2022 Anamika Banerjee states that she is doing very well and has recovered pretty well from surgery. Had robotic Laparoscopic Assisted Right Hemicolectomy On 06/28/2022 with final pathology pending. Pathology from colonoscopy however confirmed moderately differentiated adenocarcinoma of the cecum with loss of staining of MLH1 and PMS2; BRAF testing pending. Was evaluated by pulmonary who felt that 2.7 cm subsolid nodule of the apical segment right upper lobe with 1.3 cm central solid component was likely infectious/inflammatory and were more concerned about 4 mm right middle lobe solid nodule. Pulmonology recommended repeat imaging in 3 months. MRI abdomen was negative for intrahepatic metastatic disease Results & Data ([facility]) Vital Signs (Past 12 Hours) Vital Signs Temp Pulse Pulse Resp BP Pulse Ox O2 Del Method 06/29/22 07:22 37.0 C 66 18 137/78 94 Room Air 06/29/22 07:04 65 06/29/22 03:35 37.2 C 72 18 127/74 93 Room Air 06/28/22 22:45 36.7 C 78 18 146/78 H 92 Room Air 06/28/22 22:10 79
--- NOTE | 2022-06-29 09:53 | Surgery Progress Note ---
Date of Service June 29, 2022 Assessment & Plan (1) Mass of cecum: Plan: POD#3 robotic assisted right hemicolectomy Hgb 9.4, stable ok for d/c from surgical standpoint seen with Dr. Vega Admission and Anticipated Discharge Date Admission Date: June 24, 2022 Supervising Physician Co-Signing Physician Notes I personally saw and evaluated the patient Nilson Ribera PA-C and agree with the assessment plan. 61-year-old female postop day 3 from robotic assisted laparoscopic right hemicolectomy for cecal mass She is tolerating a low fiber diet and had a few bowel movements yesterday and is passing continuous flatus Her pain is well controlled and vital signs are stable We will plan on discharging her home today on a low fiber diet she will follow- up with Dr. Hopper around 2 weeks after surgery Subjective tolerating diet, po analgesics Physical Exam Constitutional: WD/WN, vitals as above Gastrointestinal (Abdomen): Inspection/Auscultation: + abdominal surgical incision (no erythema); abdomen not distended Percussion/Palpation: abdomen soft Results & Data ([facility]) Vital Signs (Past 12 Hours) Vital Signs Temp Pulse Pulse Resp BP Pulse Ox O2 Del Method 06/29/22 07:22 37.0 C 66 18 137/78 94 Room Air 06/29/22 07:04 65 06/29/22 03:35 37.2 C 72 18 127/74 93 Room Air 06/28/22 22:45 36.7 C 78 18 146/78 H 92 Room Air 06/28/22 22:10 79 PG Care Time/CCT Total # of Minutes Spent Total Time Spent with Patient: Total time spent is greater than 50% in coordination of care (as documented) at patient's floor/unit and/or counseling patient: Coding Level of Care Code None Diagnoses Mass of cecum K63.89
--- NOTE | 2022-06-29 16:44 | Discharge Summary ---
Date of Service June 29, 2022 Admission HPI Per Admitting Provider Lavonne Hein is a 61-year-old female with past medical history of asthma, hypertension, allergic rhinitis who presented due to abdominal pain. She has had this for the past few days and the pain is localized directly behind her umbilicus and in her epigastric region. She does have associated nausea and one episode of emesis. She did report dark stools, however, she did admit to using Pepto-Bismol regularly to try to help with the symptoms. Of note, patient did report similar pain shortly after Thanksgiving, which had resolved after few days. In the ED CT abdomen showed multiple fluid-filled nondilated loops of small bowel in the lower abdomen and pelvis concerning for ileus/SBO with transition point in the pelvis. Findings concerning for colitis of the ascending and transverse colon, which may be of infectious or inflammatory etiologies. Findings concerning for gastritis. Hepatic steatosis. Lab work remarkable for a hemoglobin of 8.6, which is lower than her previous of 10.3 in March. Normal white count. BUN/creatinine ratio 25.8 without any significant creatinine or BUN elevation. CRP 0.89. Stool GI PCR and C. difficile toxin ordered by ED provider and pending. She received NSS 1 L bolus, Zofran 4 mg IV x2, famotidine 20 mg IV x1, Protonix 40 mg IV x1. Principal Diagnosis SBO due to colon cancer Discharge Exam Constitutional WD/WN, vitals as above Eyes EOM intact bilaterally; no conjunctival abnormality ENMT external ear and nose normal, oropharynx normal Neck trachea midline, no thyromegaly normal visual inspection Respiratory normal respiratory effort, lungs clear to auscultation no respiratory distress Cardiovascular RRR, no murmur, no edema Gastrointestinal (Abdomen) Inspection/Auscultation: + abdominal surgical incision; abdomen not distended Musculoskeletal no cyanosis or clubbing, extremities motor strength 5/5 Skin no rashes, warm and dry Neurologic moves all extremities and awake Psychiatric Orientation: alert, oriented to person and cooperative Discharge Data Allergies Allergy/AdvReac Type Severity Reaction Status Date / Time Sulfa (Sulfonamide Allergy Intermediate Hives Verified 06/25/22 12:26 Antibiotics) Consultations 06/24/22 01:01 ED Decision to Admit Stat 06/24/22 03:09 Consult General Surgery Routine 06/24/22 08:26 Consult Gastroenterology Routine 06/25/22 19:17 Consult Pulmonology Routine 06/25/22 19:19 Consult Oncology Routine 06/26/22 09:30 Consult Patient Rep [Consult Patient Services] Routine Procedures Performed Operation Date: 06/25/22 16:30 Actual Procedures p Colonoscopy Biopsy Cytology - Corbin Triplett MD Operation Date: 06/26/22 09:40 Actual Procedures p Robotic Laparoscopic Assisted Right Hemicolectomy(Not Applicable) - Solomon Hopper, DO, FACS Ordered Studies 06/23/22 22:55 CT abd pelvis IV con only Urgent 06/25/22 14:31 CT chest without contrast [CT chest diagnostic wo con] Routine 06/28/22 16:15 MR abdomen wo/w con Routine Hospital Course (1) Mass of cecum: CT a/p on 06/23 with concern for cecal mass in addition to small bowel obstruction. CEA elevated 4.7 ng/ml. - S/p colonoscopy on 06/25 showing large, fungating large cecal mass - biopsy shows adenocarcinoma. - S/p right hemicolectomy on 06/26. Pathology pending for staging. - Appreciate oncology consult on 06/26 - Recommend liver MRI to look at hepatic mass. No sign of metastatic cancer. - Will need close follow up with oncology. (2) Lung mass: Appreciate pulm consult - lesion will be reassessed with PET/CT. [address] chest. - No further inpatient needs. Will be discussed at tumor board. (3) Small bowel obstruction: Secondary to obstructing mass as above. - Resuming diet after 06/26 hemicolectomy. Advanced to low fiber on 06/28. Gen surg gave approval for discharge on 06/29. (4) Acute blood loss anemia: S/p 2 packed RBCs on 06/25. - Venofer 300mg IV x2 ordered post operatively - Monitor hgb -> Stable overall ~9.5 at time of discharge. (5) Anemia: As above for acute blood loss anemia. (6) Hypertension, essential, benign: BP today is 160/70. - Held lisinopril due to blood loss, surgery, etc. Resume on discharge. (7) Asthma: No shortness of breath today. - Switched Advair Diskus for Breo Ellipta as per hospital formulary Plan VTE prophylaxis - Lovenox 40 mg SQ daily Total Time Total Time Spent Total Time Spent (In Minutes): 45 Discharge Plan Discharge Items Patient Disposition: Home - Self-Care Reason For Visit: SBO Discharge Diagnosis: right colon resection Activity: Per Instructions section Lifting: No more than 10 pounds Bathing Comment: may shower; no soaking in tubs/pools Exercise/Sports: Wait until after follow-up appointment Driving/Machine Use: no driving while taking narcotics for pain Non-emergency contact: Primary Care Provider and Surgeon Call non-emergency contact if: you have any medication questions, your symptoms worsen, your pain is not controlled, your pain is concerning for you, you have a fever, your temperature is above 101.5, your wound has increased redness, your wound has increased drainage and your wound pain has increased Follow-up/Referrals: Conchis Sawyer MD [Primary Care Provider] - 07/09/22 8:00 am Solomon Hopper DO, FACS [Physician] - (Please call to schedule follow up in clinic within 2 weeks) Zainab Mcneal MD [Physician] - ([facility] should reach out to you this week. Please call them on Friday if you haven't heard from them yet.) Diet: Low Fiber Addtl Attending Provider Instructions: Albert Feliciano were admitted to the hospital with a bowel blockage that ended up being due to a colon cancer. This was removed by the surgeon, and we are waiting on the results of that testing to determine the stage of the cancer and what the next treatment steps are. With the results of the pathology, we will have a better sense of the next steps. [facility] should reach out to you this week. Please call them on Friday if you haven't heard from them yet. Please call the surgeon or return to the hospital with fevers, chills, nausea, vomiting, worsening abdominal pain, or other concerning symptoms. Pending Studies at Discharge: Yes Studies:: surgical pathology Stand-Alone Forms: [employer], Smoking Cessation Medications and DC Order Prescriptions: New oxycodone-acetaminophen [Percocet] 5-325 mg tablet 1 - 2 tab PO Q4H PRN (Reason: pain, initial therapy, max 6 daily) Qty: 15 0RF Continued loratadine 10 mg tablet 10 mg PO DAILY Qty: 90 3RF multivitamin [Daily Multi-Vitamin] tablet 1 tab PO DAILY Qty: 30 0RF albuterol sulfate [Ventolin HFA] 90 mcg/actuation HFA aerosol inhaler 2 puffs INH Q4H PRN (Reason: shortness of breath or wheezing) Qty: 18 3RF fluticasone propion-salmeterol [Advair Diskus] 100-50 mcg/dose blister with device 1 puffs INH Q12H lisinopril 5 mg tablet 5 mg PO DAILY Qty: 90 3RF Discharge Orders: Discharge Order (Routine); Ordered 06/29/22 Ordered By: Wilton Milian/Other Patient Handouts: Low-Fiber Diet Admission Data Admit Date/Time: 06/24/22 01:12 Attending Provider: Wilton Greco Admit Provider: Alex Betancourt Primary Care Provider: Conchis Sawyer Other Providers: Usama Montes ; Solomon Hopper ; Corbin Triplett ; Damaso Sanchez ; Zainab Mcneal Other Interventions: Discharge Summary Assessment (RN) Last Done: 06/29/22 10:16 Coding Level of Care Code D/C DAY MANAGEMENT >30 MINS Diagnoses Mass of cecum K63.89 Lung mass R91.8 Small bowel obstruction K56.609 Acute blood loss anemia D62 Anemia D64.9 Hypertension, essential, benign I10 Asthma J45.909
--- NOTE | 2022-07-03 22:44 | Billing Data ---
Date of Service July 03, 2022 Coding Level of Care Code 11177 Initial Inpt Care Lvl 3
== END 2022-06-29 14:22 | disposition home or self-care (01) | DRG 330 ==
LOC: ED 20:45 → SUATTDRO 06-24 01:12 → EDINP 06-24 01:12 → 2N 06-24 03:09
DX: K76.9 Liver disease, unspecified; K63.89 Other specified diseases of intestine; K56.609 Unspecified intestinal obstruction, unspecified as to partial versus complete obstruction; D62 Acute posthemorrhagic anemia; J98.4 Other disorders of lung; C18.0 Malignant neoplasm of cecum; J45.909 Unspecified asthma, uncomplicated; K29.70 Gastritis, unspecified, without bleeding; Z85.3 Personal history of malignant neoplasm of breast; K52.9 Noninfective gastroenteritis and colitis, unspecified; I10 Essential (primary) hypertension; Z88.2 Allergy status to sulfonamides

== ENCOUNTER 2023-07-28 14:51 | Observation (INO) ==
[2023-07-28 16:08] LABS: Basophils # (auto) 0.05 K/uL (0.00-0.20); Basophils % (auto) 0.9 %; Eosinophils % (auto) 1.8 %; Hemoglobin 11.8 g/dl (12.0-16.0); Immature Granulocytes # (auto) 0.06 K/uL (0.01-0.20); Immature Granulocytes % (auto) 1.1 %; Lymphocytes # (auto) 1.39 K/uL (1.20-3.40); Lymphocytes % (auto) 25.1 %; Mean Corpuscular Hemoglobin 30.3 pg (25.0-34.0); Mean Corpuscular Hgb Conc 33.7 g/dL (32.0-36.0); Mean Corpuscular Volume 89.7 fL (80.0-100.0); Mean Platelet Volume 10.3 fL (9.4-12.4); Monocytes # (auto) 0.47 K/uL (0.11-0.59); Monocytes % (auto) 8.5 %; Neutrophils # (auto) 3.46 K/uL (1.40-6.50); Neutrophils % (auto) 62.6 %; Platelet Count 183 K/uL (130-400); RDW Coefficient of Variation 13.4 % (11.5-14.5); RDW Standard Deviation 43.8 fL (36.4-46.3); White Blood Count 5.53 K/ul (4.8-10.8)
[2023-07-28 16:27] LABS: Albumin Globulin Ratio 1.4 (0.9-2); Albumin Level 4.3 gm/dl (3.4-5.0); BUN Creatinine Ratio 35.2 (10-20); Bilirubin,Total 0.4 mg/dl (0.2-1.0); Calcium 9.6 mg/dl (8.6-10.3); Est GFR (African American) 117.2 ml/min; Est GFR (Non-African American) 101.1 ml/min; Globulin 3.1 gm/dl (2.5-4.0); Potassium 4.4 mmol/L (3.5-5.1); Total Protein 7.4 gm/dl (6.0-8.3)
[2023-07-28] MEDS ORDERED: SODIUM CHLORIDE 0.9% 1,000 ML IV ONE (16:33)
--- NOTE | 2023-07-28 16:48 | Emergency Department Note ---
Impression & Plan Abdominal pain ED Provider Note Diagnosis: Intra-abdominal internal hernia Disposition: Admission CHIEF COMPLAINT: Abdominal pain HPI: Patient is a 62-year-old female with history of breast and colon cancer status post right hemicolectomy presenting with abdominal pain. Patient states its diffuse points periumbilical region. Patient denies any nausea vomiting or diarrhea. Patient states she had a bowel movement earlier this morning. Patient states this does feel similar to when she had a bowel obstruction previously. Patient denies any chest pain or shortness of breath. Patient denies fevers or chills. PAST MEDICAL HISTORY: See Below PAST SURGICAL HISTORY: See Below SOCIAL HISTORY: See Below HOME MEDICATIONS: See Below ALLERGIES: See Below VITALS: See Below PHYSICAL EXAMINATION: GENERAL: Well appearing, well nourished, NAD, non-toxic. EYE EXAM: Normal conjunctiva. OROPHARYNX: Moist mucus membranes. Grossly normal dentition. NECK: Supple, LUNGS: Clear to auscultation. Normal chest wall mechanics. HEART: NSR ABDOMEN: Abdomen soft, tenderness periumbilical BACK: No CVA TTP. SKIN: No rashes and no bruising. UPPER EXTREMITIES: Upper extremities are grossly normal LOWER EXTREMITIES: Grossly normal, no edema. NEURO EXAM: A&O x3,, normal speech, moves all 4 extremities PSYCH: Cooperative MEDICAL DECISION MAKING: Reviewed external documents: Op report from June 2023 from robotic hemicolectomy History obtained from: Patient, ER Course: Patient is a 62-year-old female presenting with abdominal pain. Patient denies any nausea vomiting or diarrhea. Patient had a bowel movement this morning. Patient's history is significant for breast cancer as well as colon cancer status post right hemicolectomy 1 year prior. Patient feels similar to when she had a bowel obstruction previously. Patient's blood work does not show any electrolyte abnormalities or leukocytosis. Patient CT scan shows potential internal hernia versus midgut rotation. Radiologist does not see any signs of obstruction at this point. Patient's case discussed with general surgery team and hospitalist service for admission. Labs (independently interpreted) are significant for: No leukocytosis Medications given: Normal saline bolus Consultants: Dr. Greco of general surgery reviewed patient's CT scan and findings recommends admission with hospitalist service n.p.o. IV fluids and consultation in the morning with Dr. Hopper her primary general surgeon. Triage Nursing notes reviewed and agree them. 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 H/O lumpectomy left breast; multiple H/O colonoscopy 12/29/13 repeat 10yr 06/25/22 History of tubal ligation Family History Grandmother Stroke syndrome Cancer Stroke Uncle Colorectal cancer Mother Heart disease Hypertension Grandfather Stroke Other No family history of adverse response to anesthesia Denies family history of Ovarian cancer Prostate cancer Myocardial infarction Breast cancer Social History Smoking Status: Never smoker Second Hand Exposure: No; Do You Dip or Chew Tobacco: No; Hx Alcohol Use: Yes Alcohol type: wine Alcohol Intake Frequency: Monthly or Less Hx Substance Use: No Preferred Language: Thai Communication Ability: Effective Visual Impairment: No Limitations Staff Nurse Required: No Beliefs That Will Affect Care: None marital status: Current Living Situation: Spouse current occupational status: employed current occupation: Educator How many Children do You have: 3 Other Information That Helps Us Care for You: No Feels Safe at Home: Yes Safety Concerns: Feels Safe At This Time Diet: regular during the past year weight has: increased > 10 lbs Assistive Devices: None Allergies Allergies Allergy/AdvReac Type Severity Reaction Status Date / Time Sulfa (Sulfonamide Allergy Intermediate Hives Verified 07/28/23 19:32 Antibiotics) Home Meds Home Medications Medication Instructions Recorded Confirmed fluticasone 100 mcg-salmeterol 50 2 ea inhalation Q12H 07/11/22 07/28/23 mcg/dose blistr powdr for inhalation (Advair Diskus) loratadine 10 mg tablet 10 mg PO QAM 07/12/22 07/28/23 multivitamin (Daily Multi-Vitamin 1 tab PO QAM 07/12/22 07/28/23 tablet) gabapentin 300 mg capsule 300 mg PO DAILY 06/16/23 07/28/23 Citracal Tabs 1,200 mg PO DAILY 07/28/23 07/28/23 Previous Rx's Medication Instructions Recorded albuterol sulfate 90 mcg/actuation 2 puffs inhalation Q4H PRN 01/15/19 aerosol inhaler (Ventolin HFA) shortness of breath or wheezing #18 grams lisinopril 5 mg tablet 5 mg PO QAM #90 tabs 11/04/22 Results & Data (ED) Vital Signs Vital Signs - 24 hr 07/28/23 14:55 Temperature 36.6 C Temperature Source Temporal Artery Scan Pulse Rate 70 Respiratory Rate 18 Respiratory Effort / Characteristics Non-Labored Spontaneous Respiratory Depth Normal Respiratory Pattern Regular Blood Pressure 121/89 Blood Pressure Mean 99 Pulse Oximetry 96 Oxygen Delivery Method Room Air Sepsis Recent Fever Within 48 Hours No Sepsis New/Unexplained Change in Mental Status No Sepsis Action Taken by Nursing No Action Required Laboratory Data 07/28/23 15:51 07/28/23 15:51 Lab Results 07/28/23 Range/Units 15:51 WBC 5.53 (4.8-10.8) K/ul RBC 3.90 L (4.20-5.40) M/uL Hgb 11.8 L (12.0-16.0) g/dl Hct 35.0 L (37.0-47.0) % MCV 89.7 (80.0-100.0) fL MCH 30.3 (25.0-34.0) pg MCHC 33.7 (32.0-36.0) g/dL RDW Std Deviation 43.8 (36.4-46.3) fL RDW Coeff of Kayleigh 13.4 (11.5-14.5) % Plt Count 183 (130-400) K/uL MPV 10.3 (9.4-12.4) fL Immature Gran % (Auto) 1.1 % Neut % (Auto) 62.6 % Lymph % (Auto) 25.1 % [place] % (Auto) 8.5 % Eos % (Auto) 1.8 % Baso % (Auto) 0.9 % Neut # (Auto) 3.46 (1.40-6.50) K/uL Lymph # (Auto) 1.39 (1.20-3.40) K/uL [place] # (Auto) 0.47 (0.11-0.59) K/uL Eos # (Auto) 0.10 (0.00-0.50) K/uL Baso # (Auto) 0.05 (0.00-0.20) K/uL Immature Gran # (Auto) 0.06 (0.01-0.20) K/uL Sodium 138 (136-145) mmol/L Potassium 4.4 (3.5-5.1) mmol/L Chloride 106 (98-107) mmol/L Carbon Dioxide 27 (21-32) mmol/L Anion Gap 5 (3-11) BUN 19 (6-23) mg/dl Creatinine 0.54 L (0.6-1.2) mg/dl Est Cr Clr Drug Dosing 105.0 ml/min Est GFR ( Amer) 117.2 ml/min Est GFR (Non-Af Amer) 101.1 ml/min BUN/Creatinine Ratio 35.2 H (10-20) Glucose 92 (70-99(Fasting)) mg/dl Calcium 9.6 (8.6-10.3) mg/dl Phosphorus 4.2 (2.5-4.9) mg/dl Magnesium 2.1 (1.7-2.4) mg/dl Total Bilirubin 0.4 (0.2-1.0) mg/dl AST 16 (13-39) U/L ALT 16 (7-52) U/L Alkaline Phosphatase 101 (34-104) U/L Total Protein 7.4 (6.0-8.3) gm/dl Albumin 4.3 (3.4-5.0) gm/dl Globulin 3.1 (2.5-4.0) gm/dl Albumin/Globulin Ratio 1.4 (0.9-2) Lipase 22 (11-82) U/L Administered Medications Enoxaparin Sodium (Enoxaparin Inj 40 Mg/0.4 Ml Syr) 40 mg SQ Q24H MARIA D Stop: 08/27/23 20:44 Last Admin: 07/28/23 21:31 Dose: 40 mg Documented By: JARAD Fluticasone/Vilanterol (Fluticasone/Vilanterol 100/25mcg 14 Puffs/Inhaler) 1 puffs INH DAILY MARIA D Stop: 08/27/23 20:34 Last Admin: 07/28/23 21:31 Dose: Not Given Documented By: JARAD Lactated Ringer's (Lr) 1,000 mls @ 100 mls/hr IV .Q10H MARIA D Stop: 07/30/23 02:30 Last Admin: 07/28/23 21:31 Dose: 100 mls/hr Documented By: JARAD Discontinued Medications Sodium Chloride (Nss) 1,000 mls @ 999 mls/hr IV .Q1H1M ONE Stop: 07/28/23 17:33 Last Infusion: 07/28/23 18:03 Dose: Infused Documented By: Admin: 07/28/23 16:41 Dose: 999 mls/hr Documented By: LENORE Ioversol (Optiray 320 500ml) 83 ml IV ONCE ONE Stop: 07/28/23 17:47 Last Admin: 07/28/23 17:47 Dose: 83 ml Documented By: GERARD Imaging Data Radiologist's Impression: Abdomen/Pelvis CT 07/28/23 16:[address] WITH IV CONTRAST CT DOSE: 850.26 mGy.cm HISTORY: Diffuse abdominal pain history of colon cancer s/p R colecto TECHNIQUE: Multiaxial CT images of the abdomen and pelvis were performed following the use of intravenous contrast. A dose lowering technique was utilized adhering to the principles of ALARA. COMPARISON STUDY: Abdomen and pelvis CT 05/07/2023. FINDINGS: Left basilar linear densities favor subsegmental atelectasis are scarring. The right lung base is clear. No pneumoperitoneum. No pneumatosis. No acute fractures identified. 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 Small cyst again noted within segment 6 of the liver, unchanged. No new or suspicious hepatic lesions. The spleen and adrenal glands are unremarkable. The pancreas enhances normally. Stable subcentimeter hypodense lesions within the right kidney. These are technically too small to characterize but favor cysts. No hydronephrosis. Normal left kidney. The main portal vein is patent. Mild calcified plaque within the normal caliber abdominal aorta. No retroperitoneal or pelvic lymphadenopathy. No pelvic free fluid. The bladder, uterus, adnexa are unremarkable. Colonic diverticulosis. No evidence for acute diverticulitis. The duodenum appears cross the midline. However, there is swirling of the central mesenteric vessels/central mesentery which is new compared the prior study. There is mild edema within the right side of the mesentery. The majority of the small bowel loops are located along the right side of the abdomen and the majority of the colon is now located within the left side the abdomen. This can be seen in the setting of intestinal malrotation. However, this is new compared to the prior studies and therefore raises the possibility of an internal hernia or less likely developing midgut volvulus. There is no evidence for a bowel obstruction or bowel wall thickening at this time. There is evidence for prior right hemicolectomy. IMPRESSION: 1. The duodenum appears to cross the midline. However, there is swirling of the central mesenteric vessels/central mesentery which is new compared the prior study. There is mild edema within the right side of the mesentery. The majority of the small bowel loops are located along the right side of the abdomen and the majority of the colon is now located within the left side the abdomen. This can be seen in the setting of intestinal malrotation. However, this is new compared to the prior studies and therefore raises the possibility of an internal hernia or less likely developing midgut volvulus. There is no evidence for a bowel obstruction or bowel wall thickening at this time. 2. Prior right hemicolectomy again noted. 3. No evidence for metastatic disease within the abdomen or pelvis. ACT 112: Negative or not required by law. Electronically signed by: Himanshu Hinson M.D. 07/28/2023 6:11 PM Discharge Plan Visit Data Chief Complaint: Abdominal Pain Stated Complaint: ABD PAIN ED Provider: Hector Kitchen Discharge Problem: Abdominal pain Patient Disposition: Admitted As Inpatient Discharge Instructions Interventions: ED Discharge Assessment Last Done: 07/28/23 20:04
[2023-07-28] MEDS ORDERED: OPTIRAY 320 500ml IV ONE (17:46)
--- NOTE | 2023-07-28 18:12 | CT Scan Report ---
ABDOMEN AND PELVIS CT WITH IV CONTRAST CT DOSE: 850.26 mGy.cm HISTORY: Diffuse abdominal pain history of colon cancer s/p R colecto TECHNIQUE: Multiaxial CT images of the abdomen and pelvis were performed following the use of intrave nous contrast. A dose lowering technique was utilized adhering to the principles of ALARA. COMPARISON STUDY: Abdomen and pelvis CT 05/07/2023. FINDINGS: Left basilar linear densities favor subsegmental atelectasis are scarring. The right lung b ase is clear. No pneumoperitoneum. No pneumatosis. No acute fractures identified. Stable 8 mm angiomy olipoma within the right hepatic dome. Small cyst again noted within segment 6 of the liver, unchange d. No new or suspicious hepatic lesions. The spleen and adrenal glands are unremarkable. The pancreas enhances normally. Stable subcentimeter hypodense lesions within the right kidney. These are technic ally too small to characterize but favor cysts. No hydronephrosis. Normal left kidney. The main geri l vein is patent. Mild calcified plaque within the normal caliber abdominal aorta. No retroperitoneal or pelvic lymphadenopathy. No pelvic free fluid. The bladder, uterus, adnexa are unremarkable. Colon ic diverticulosis. No evidence for acute diverticulitis. The duodenum appears cross the midline. Hamilton david, there is swirling of the central mesenteric vessels/central mesentery which is new compared the prior study. There is mild edema within the right side of the mesentery. The majority of the small ata wel loops are located along the right side of the abdomen and the majority of the colon is now locate d within the left side the abdomen. This can be seen in the setting of intestinal malrotation. Howev er, this is new compared to the prior studies and therefore raises the possibility of an internal her kari or less likely developing midgut volvulus. There is no evidence for a bowel obstruction or bowel wall thickening at this time. There is evidence for prior right hemicolectomy. IMPRESSION: 1. The duodenum appears to cross the midline. However, there is swirling of the central mesenteric ve ssels/central mesentery which is new compared the prior study. There is mild edema within the right s mary of the mesentery. The majority of the small bowel loops are located along the right side of the a bdomen and the majority of the colon is now located within the left side the abdomen. This can be se en in the setting of intestinal malrotation. However, this is new compared to the prior studies and t herefore raises the possibility of an internal hernia or less likely developing midgut volvulus. Ther e is no evidence for a bowel obstruction or bowel wall thickening at this time. 2. Prior right hemicolectomy again noted. 3. No evidence for metastatic disease within the abdomen or pelvis. ACT 112: Negative or not required by law. Electronically signed by: Himanshu Hinson M.D. 07/28/2023 6:11 PM
--- NOTE | 2023-07-28 19:39 | History & Physical Report ---
Date of Service July 28, 2023 Assessment & Plan (1) Abdominal pain: Plan: 62yo female presenting with abdominal pain. 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 Mcneal of Heme/Onc). She has had abdominal pain and bloating and decreased stool output x [address] as above with concern for possible developing hernia or volvulus. No metastatic disease, obstruction or evidence of bowel ischemia at this time. At this time her abdomen is soft, non-distended and only mildly tender. She has normoactive bowel sounds, no nausea. -Admit to medical floor -Maintain NPO status -IVF with LR at 100mL/hr -Zofran PRN nausea -Morphine PRN pain -General Surgery consultation in the AM. 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 She is to establish care with Radiation Oncology on 09/05/23. She follows with Dr. Mcneal. (3) Hypertension, essential, benign: Plan: Chronic. 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 Hopper s/p chemotherapy presenting with abdominal pain. Patient had been in her usual state of health until today 07/28/23 around 10:30 when she developed dull periumbilical pain. Her pain continued and worsened throughout the day which prompted her to come to the ER. She was concerned because the pain she felt was similar to the pain associated with her prior bowel obstruction. She reports normal bowel movements until today when she had a small, hard BM. She has some abdominal distention as well. She has had some hot flashes over the last several days which is somewhat abnormal for her. Otherwise no nausea or vomiting. She is passing flatus. No additional complaints at this time - specifically no chest pain, palpitations, cough, SOB, fever. In the ER she is afebrile, mildly hypertensive otherwise HD stable ER Course: NSS x 1L Allergies Allergy/AdvReac Type Severity Reaction Status Date / Time Sulfa (Sulfonamide Allergy Intermediate Hives Verified 07/28/23 19:32 Antibiotics) Home Medications Medication Instructions Recorded Confirmed Type albuterol sulfate 90 mcg/actuation 2 puffs inhalation Q4H PRN 01/15/19 07/28/23 Rx aerosol inhaler (Ventolin HFA) shortness of breath or wheezing #18 grams fluticasone 100 mcg-salmeterol 50 2 ea inhalation Q12H 07/11/22 07/28/23 History mcg/dose blistr powdr for inhalation (Advair Diskus) loratadine 10 mg tablet 10 mg PO QAM 07/12/22 07/28/23 History multivitamin (Daily Multi-Vitamin 1 tab PO QAM 07/12/22 07/28/23 History tablet) lisinopril 5 mg tablet 5 mg PO QAM #90 tabs 11/04/22 07/28/23 Rx gabapentin 300 mg capsule 300 mg PO DAILY 06/16/23 07/28/23 History Citracal Tabs 1,200 mg PO DAILY 07/28/23 07/28/23 History Past Med/Surg History Medical History DCIS (ductal carcinoma in situ) of breast recent dx- 05/2023 left breast, recent lumpectomy 05/2023 [facility] [place]; to start radiation therapy follows w/ Dr Mcneal Seasonal allergies History of recent blood transfusion 06/25/22 2 units PRBCs 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 H/O lumpectomy left breast; multiple H/O colonoscopy 12/29/13 repeat 10yr 06/25/22 History of tubal ligation Family History Grandmother Stroke syndrome Cancer Stroke Uncle Colorectal cancer Mother Heart disease Hypertension Grandfather Stroke Other No family history of adverse response to anesthesia Denies family history of Ovarian cancer Prostate cancer Myocardial infarction Breast cancer Social History Smoking Status: Never smoker Second Hand Exposure: No; Do You Dip or Chew Tobacco: No; Hx Alcohol Use: Yes Alcohol type: wine Alcohol Intake Frequency: Monthly or Less Hx Substance Use: No Preferred Language: Surinamese Communication Ability: Effective Visual Impairment: No Limitations Director Dietetics Department Required: No Beliefs That Will Affect Care: None marital status: Current Living Situation: Spouse current occupational status: employed current occupation: Educator How many Children do You have: 3 Other Information That Helps Us Care for You: No Feels Safe at Home: Yes Safety Concerns: Feels Safe At This Time Diet: regular during the past year weight has: increased > 10 lbs Assistive Devices: None Review of Systems Review of Systems: All systems reviewed & are unremarkable except as noted in HPI & below Physical Exam Physical Exam: General: patient resting comfortably, NAD, non-toxic in appearance, AA&O x 4 Skin: warm, dry, intact, no rashes or lesions HEENT: NC/AT, PERRL, EOMI, anicteric sclera, conjunctiva without injection, external ear normal to inspection and nontender, nares patent, moist mucus membranes, dentition intact, no oropharyngeal lesions, neck supple, trachea midline, no LAD, no thyromegaly, no JVD Heart: +S1/S2, regular, no m/r/g, left chest port in place, nontender Lungs: equal air entry bilaterally, no rales/rhonchi/wheezes Abd: +BS, soft, mildly tender without rebound/guarding or peritonitis, ND, no masses/organomegaly/ascites Ext: warm, 2+ pulses in UE/LE bilaterally, no clubbing/cyanosis or edema Neuro: nonfocal, patient AA&O x 4, speech intact, no facial droop, moving all extremities on command with equal strength 5/5 Results & Data Results & Data Vital Signs (Past 12 Hours) Vital Signs Temp Pulse Resp BP Pulse Ox O2 Del Method 07/28/23 14:55 36.6 C 70 18 121/89 96 Room Air Laboratory Results Laboratory Results WBC 5.53 K/ul (4.8-10.8) 07/28/23 15:51 RBC 3.90 M/uL (4.20-5.40) L 07/28/23 15:51 Hgb 11.8 g/dl (12.0-16.0) L 07/28/23 15:51 Hct 35.0 % (37.0-47.0) L 07/28/23 15:51 MCV 89.7 fL (80.0-100.0) 07/28/23 15:51 MCH 30.3 pg (25.0-34.0) 07/28/23 15:51 MCHC 33.7 g/dL (32.0-36.0) 07/28/23 15:51 RDW Std Deviation 43.8 fL (36.4-46.3) 07/28/23 15:51 RDW Coeff of Kayleigh 13.4 % (11.5-14.5) 07/28/23 15:51 Plt Count 183 K/uL (130-400) 07/28/23 15:51 MPV 10.3 fL (9.4-12.4) 07/28/23 15:51 Immature Gran % (Auto) 1.1 % 07/28/23 15:51 Neut % (Auto) 62.6 % 07/28/23 15:51 Lymph % (Auto) 25.1 % 07/28/23 15:51 [place] % (Auto) 8.5 % 07/28/23 15:51 Eos % (Auto) 1.8 % 07/28/23 15:51 Baso % (Auto) 0.9 % 07/28/23 15:51 Neut # (Auto) 3.46 K/uL (1.40-6.50) 07/28/23 15:51 Lymph # (Auto) 1.39 K/uL (1.20-3.40) 07/28/23 15:51 [place] # (Auto) 0.47 K/uL (0.11-0.59) 07/28/23 15:51 Eos # (Auto) 0.10 K/uL (0.00-0.50) 07/28/23 15:51 Baso # (Auto) 0.05 K/uL (0.00-0.20) 07/28/23 15:51 Immature Gran # (Auto) 0.06 K/uL (0.01-0.20) 07/28/23 15:51 Sodium 138 mmol/L (136-145) 07/28/23 15:51 Potassium 4.4 mmol/L (3.5-5.1) 07/28/23 15:51 Chloride 106 mmol/L (98-107) 07/28/23 15:51 Carbon Dioxide 27 mmol/L (21-32) 07/28/23 15:51 Anion Gap 5 (3-11) 07/28/23 15:51 BUN 19 mg/dl (6-23) 07/28/23 15:51 Creatinine 0.54 mg/dl (0.6-1.2) L 07/28/23 15:51 Est Cr Clr Drug Dosing 105.0 ml/min 07/28/23 15:51 Est GFR ( Amer) 117.2 ml/min 07/28/23 15:51 Est GFR (Non-Af Amer) 101.1 ml/min 07/28/23 15:51 BUN/Creatinine Ratio 35.2 (10-20) H 07/28/23 15:51 Glucose 92 mg/dl (70-99(Fasting)) 07/28/23 15:51 Calcium 9.6 mg/dl (8.6-10.3) 07/28/23 15:51 Phosphorus 4.2 mg/dl (2.5-4.9) 07/28/23 15:51 Magnesium 2.1 mg/dl (1.7-2.4) 07/28/23 15:51 Total Bilirubin 0.4 mg/dl (0.2-1.0) 07/28/23 15:51 AST 16 U/L (13-39) 07/28/23 15:51 ALT 16 U/L (7-52) 07/28/23 15:51 Alkaline Phosphatase 101 U/L (34-104) 07/28/23 15:51 Total Protein 7.4 gm/dl (6.0-8.3) 07/28/23 15:51 Albumin 4.3 gm/dl (3.4-5.0) 07/28/23 15:51 Globulin 3.1 gm/dl (2.5-4.0) 07/28/23 15:51 Albumin/Globulin Ratio 1.4 (0.9-2) 07/28/23 15:51 Lipase 22 U/L (11-82) 07/28/23 15:51 Urine Color Yellow 07/28/23 19:40 Urine Appearance Clear (Clear) 07/28/23 19:40 Urine pH 5.0 (4.5-7.5) 07/28/23 19:40 Ur Specific [place] 1.009 (1.000-1.030) 07/28/23 19:40 Urine Protein Negative (Negative) 07/28/23 19:40 Urine Glucose (UA) Negative (Negative) 07/28/23 19:40 Urine Ketones Negative (Negative) 07/28/23 19:40 Urine Blood Trace (Negative) H 07/28/23 19:40 Urine Nitrite Negative (Negative) 07/28/23 19:40 Urine Bilirubin Negative (Negative) 07/28/23 19:40 Urine Urobilinogen Negative (Negative) 07/28/23 19:40 Ur Leukocyte Esterase 1+ (Negative) H 07/28/23 19:40 Urine WBC (Auto) 1-5 /hpf (0-5) 07/28/23 19:40 Urine RBC (Auto) 0-4 /hpf (0-4) 07/28/23 19:40 U Hyaline Cast (Auto) 1-5 /lpf (0-5) 07/28/23 19:40 U Epithel Cells (Auto) >30 /lpf (0-5) H 07/28/23 19:40 Urine Bacteria (Auto) Negative (Negative) 07/28/23 19:40 Impressions Abdomen/Pelvis CT 07/28/23 16:[address] WITH IV CONTRAST CT DOSE: 850.26 mGy.cm HISTORY: Diffuse abdominal pain history of colon cancer s/p R colecto TECHNIQUE: Multiaxial CT images of the abdomen and pelvis were performed following the use of intravenous contrast. A dose lowering technique was utilized adhering to the principles of ALARA. COMPARISON STUDY: Abdomen and pelvis CT 05/07/2023. FINDINGS: Left basilar linear densities favor subsegmental atelectasis are scarring. The right lung base is clear. No pneumoperitoneum. No pneumatosis. No acute fractures identified. 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 Small cyst again noted within segment 6 of the liver, unchanged. No new or suspicious hepatic lesions. The spleen and adrenal glands are unremarkable. The pancreas enhances normally. Stable subcentimeter hypodense lesions within the right kidney. These are technically too small to characterize but favor cysts. No hydronephrosis. Normal left kidney. The main portal vein is patent. Mild calcified plaque within the normal caliber abdominal aorta. No retroperitoneal or pelvic lymphadenopathy. No pelvic free fluid. The bladder, uterus, adnexa are unremarkable. Colonic diverticulosis. No evidence for acute diverticulitis. The duodenum appears cross the midline. However, there is swirling of the central mesenteric vessels/central mesentery which is new compared the prior study. There is mild edema within the right side of the mesentery. The majority of the small bowel loops are located along the right side of the abdomen and the majority of the colon is now located within the left side the abdomen. This can be seen in the setting of intestinal malrotation. However, this is new compared to the prior studies and therefore raises the possibility of an internal hernia or less likely developing midgut volvulus. There is no evidence for a bowel obstruction or bowel wall thickening at this time. There is evidence for prior right hemicolectomy. IMPRESSION: 1. The duodenum appears to cross the midline. However, there is swirling of the central mesenteric vessels/central mesentery which is new compared the prior study. There is mild edema within the right side of the mesentery. The majority of the small bowel loops are located along the right side of the abdomen and the majority of the colon is now located within the left side the abdomen. This can be seen in the setting of intestinal malrotation. However, this is new compared to the prior studies and therefore raises the possibility of an internal hernia or less likely developing midgut volvulus. There is no evidence for a bowel obstruction or bowel wall thickening at this time. 2. Prior right hemicolectomy again noted. 3. No evidence for metastatic disease within the abdomen or pelvis. ACT 112: Negative or not required by law. Electronically signed by: Himanshu Hinson M.D. 07/28/2023 6:11 PM Code Status & VTE Plan VTE Prophylaxis Plan VTE Prophylaxis will be ordered: Yes PG Care Time/CCT Total # of Minutes Spent Total Time Spent with Patient: Total time spent is greater than 50% in coordination of care (as documented) at patient's floor/unit and/or counseling patient: Coding Level of Care Code 78562 INT INP/OBS CARE 2/55MIN Diagnoses Abdominal pain R10.9 Breast cancer, left C50.912 Hypertension, essential, benign I10
[2023-07-28 19:58] LABS: Appearance Urine Clear (Clear); Bacteria Urine Automated Negative (Negative); Bilirubin Urine Negative (Negative); Blood Urine Trace (Negative); Color Urine Yellow; Epithelial Cell Urine Auto >30 /lpf (0-5); Glucose Urine UA Negative (Negative); Ketones Urine Negative (Negative); Leukocyte Esterase Urine 1+ (Negative); Nitrite Urine Negative (Negative); Protein Urine Negative (Negative); RBC Urine Automated 0-4 /hpf (0-4); Specific Gravity Urine 1.009 (1.000-1.030); Urobilinogen Urine Negative (Negative)
[2023-07-28] MEDS ORDERED: ONDANSETRON INJ 2 MG/ML 2 ML VIAL IV PRN (20:31)
[2023-07-28] MEDS ORDERED: MoRPHine SULFATE 2 MG/ML CARP IV PRN (20:31)
[2023-07-28] MEDS ORDERED: MoRPHine SULFATE 4 MG/ML 1 ML CARP\\VIAL IV PRN (20:31)
[2023-07-28] MEDS ORDERED: ENOXAPARIN INJ 40 MG/0.4 ML SYR SQ SCH (20:45)
[2023-07-28 20:54] LABS: Magnesium 2.1 mg/dl (1.7-2.4); Phosphorus 4.2 mg/dl (2.5-4.9)
[2023-07-28] MEDS: LACTATED RINGER'S 1,000 ML IV SCH (21:31)
[2023-07-28] MEDS: FLUTICASONE/VILANTEROL 100/25MCG 14 PUFFS/INHALER INH SCH (21:31)
[2023-07-28] MEDS ORDERED: GABAPENTIN 300 MG CAP PO STA (22:27)
--- OUTSIDE RECORDS SUMMARY | 2023-07-28 23:05 | External Medical Summary | Continuity of Care Document ---
Author Name Unknown Organization [place] [address] [address] [facility] [address] [place] [phone] Care Team Providers Care Metal Fabricator Apprentice Name Role Phone Leah Gregg Primary Care Physician [phone] [id number] Date(s): 07/18/23 - 07/18/23 [place] [address] [address] [facility] [address] [facility], [address], Entrance [address] [place] [address] [phone] Encounter Diagnosis Postop check(Discharge Diagnosis) - 07/18/23 Discharge Disposition: Home or Self Care Attending Physician: LC Flores Nichole D Referring Physician: MD Silverio, Conchis Forrest Allergies, Adverse Reactions, Alerts Substance Reaction Severity Status Allergy Not found in Search 1 Active sulfa drugs Rash Active Pollen Active 1feather, seasonal Medications Advair HFA 115 mcg-21 mcg Start: 12/23/13 9:37:00 EDT, See Instructions, 2 puff inhaled prn Start Date: 12/23/13 Status: Ordered Albuterol (Eqv-ProAir HFA) 90 mcg/inh inhalation aerosol Start: 07/12/22 10:22:00 EST Start Date: 07/12/22 Status: Ordered Claritin Start: 01/26/14 12:40:00, 10 mg =, PO, Daily Start Date: 01/26/14 Status: Ordered gabapentin 300 mg oral capsule Start: 05/02/23 13:44:00 EDT, 1 cap, PO, Daily Start Date: 05/02/23 Status: Ordered lisinopril 2.5 mg oral tablet Start: 02/27/21 10:27:00 EDT, 2 tab, PO, Daily Start Date: 02/27/21 Status: Ordered multivitamin Start: 12/23/13 9:42:00, 1 tab, PO, Daily Start Date: 12/23/13 Status: Ordered raloxifene 60 mg oral tablet Start: 07/27/18 14:47:38 EST, See Instructions, Disp# 90 tab, Refills: 10, TAKE 1 TABLET BY MOUTH DAILY, Pharmacy: [facility]/pharmacy #[id number] Start Date: 07/27/18 Status: Ordered Mental Status 07/18/23 Barriers to Learning one year None evide nt Mandatory Health Literacy Documentation Yes Health Literacy Communication Barriers N ever Primary Language Malawian Problem List Condition Confirmation Course Effective Dates Status Health St atus Informant Allergic rhinitis Confirmed Active Asthma 1 Confirmed Active History of bulimia Confirmed Active History of chemotherapy Confirmed Active HTN (hypertension) Confirmed Active Lobular carcinoma in situ Confirmed Active Colon cancer 2 Confirmed 06/2022 Active 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 Weight disorder Confirmed Active 1wheeing 2STAGE 3 3B/L hands & feet 2/2 chemotherapy Diagnosis Diagnosis Type Effective Dates Health Status Cl inical Service Informant Postop check Discharge Diagnosis 07/18/23 Procedures Procedure Date Related Diagnosis Body Site Status Biopsy of breast 1 04/09/23 Comple johanna Partial colectomy 06/26/22 Complet ed Bilateral cataracts 2 03/2022 Com pleted Oral 3 06/2015 Completed Biopsy of breast 4 Comple johanna Colonoscopy Completed Oral surgery 5 Completed Tubal ligation Completed 1LEFT DCIS 2B/L cataract surgery 3oral surgery 4right 5tooth extractions & implants Vital Signs Most recent to oldest [Reference Range]: 1 Temperature [36.5-37.9 DegC] 36.3 DegC *LOW* (07/18/23 12:52 PM) Heart Rate 75 bpm (07/18/23 12:52 PM) Blood Pressure 118/82mmHg (07/18/23 12:52 PM) Cuff Pulse Pressure 36 mmHg (07/18/23 12:52 PM) Social History Social History Type Response Smoking Status Never smoked cigaret maia Sex [facility] Outpt Note * LC Flores Nichole D: PERFORM Event Display: [facility] Outpt Note Authored Date: [id number] Chief Complaint pt here for post op check. pt states she is healing well. History of Present Illness Post-Op Visit Vitals & Measurements T:36.3C HR:75(Monitored) BP:118/82 Stage pT1a N0 Feeling well Incision clean dry and intact without redness or drainage ROM WNL Status postLeft SLNB on 07/11/[address] Christopher White discussed pathology with patient on phone. Copy provided today andreviewed with , nodes negative. Has had Med oncconsult with Dr. Mcneal Rad Onc consult on 08/05/23 closer to home. Return in7 months for bilateral diagnostic mammo and clinical exam for cancer surveillance with Dr. White Problem List/Past Medical History Ongoing Allergic rhinitis Asthma Colon cancer History of bulimia History of chemotherapy HTN (hypertension) Lobular carcinoma in situ Neuropathy associated with cancer Weight disorder Procedure/Surgical History Biopsy of breast (04/09/2023)Partial colectomy (06/26/2022)Bilateral cataracts (03/2022)Oral (06/2015)Tubal ligationBiopsy of breastColonoscopyOral surgery Electronic Signature on File Electronically Reviewed/Signed by: LC Tidwell Author Signature Dt/Tm:07/18/2023 02:46 PM Division of Oncology Surgery Electronically Reviewed/Signed by: Nereyda White MD Division of General Surgery [facility] Patient Care team information Care Team Personnel Name: MD Erickson Rena Position: Physician - Surgery Oncology Member Role: Lifetime Relationship Address: Address: [address] [place] [address] [place] Name: LC Gregg Moira Shea-Alene Position: Referring Member Role: Primary Care Provider Address: Address: [facility] [place] [address] [place] Name: MD White Kristine L Position: Physician - Surgery Oncology Member Role: Lifetime Relationship Address: Address: [address] [place] [address] Care Team Related Persons Name: MASON SO Address: home [address] [place] [phone] Name: MASON SO Address: Mario CARVAJAL Address: home [address] [place] [phone]
[2023-07-29] MEDS: LACTATED RINGER'S 1,000 ML IV SCH (06:21)
[2023-07-29 07:03] LABS: Hematocrit (blood only) 34.3 % (37.0-47.0); Hemoglobin 11.3 g/dl (12.0-16.0); Mean Corpuscular Hemoglobin 30.1 pg (25.0-34.0); Mean Corpuscular Hgb Conc 32.9 g/dL (32.0-36.0); Mean Corpuscular Volume 91.5 fL (80.0-100.0); Mean Platelet Volume 10.2 fL (9.4-12.4); Platelet Count 153 K/uL (130-400); RDW Coefficient of Variation 13.4 % (11.5-14.5); RDW Standard Deviation 45.3 fL (36.4-46.3); Red Blood Count 3.75 M/uL (4.20-5.40); White Blood Count 3.69 K/ul (4.8-10.8)
[2023-07-29 07:20] LABS: BUN Creatinine Ratio 26.1 (10-20); Calcium 8.4 mg/dl (8.6-10.3); Creatinine Clr Calc Pharmacy 123.3 ml/min; Est GFR (African American) 123.6 ml/min; Est GFR (Non-African American) 106.6 ml/min; Potassium 3.6 mmol/L (3.5-5.1)
[2023-07-29] MEDS: GABAPENTIN 300 MG CAP PO SCH ×2 (07:59→13:28)
[2023-07-29] MEDS: FLUTICASONE/VILANTEROL 100/25MCG 14 PUFFS/INHALER INH SCH (08:00)
--- NOTE | 2023-07-29 08:37 | Surgery Consultation ---
Date of Consultation July 29, 2023 Assessment & Plan (1) Abdominal pain: This is a 62yF with a PMH of L breast ca, colon ca s/p R hemicolectomy in 06/26/22 with TAWANA Guzman, HTN, asthma, who presents to the [facility] ED on 07/28/23 with complaints of abdominal pain that started yesterday AM. Due to the severity she came into the ER for evaluation. A CT a/p was performed that revealed some swirling of the central mesenteric vessels/central mesentery which is new with the majority of the small bowel loops are located along the right side of the abdomen and the majority of the colon is now located within the left side the abdomen. This can be seen in the setting of intestinal malrotation,however it raises the possibility of an internal hernia or less likely developing midgut volvulus. There is no evidence for a bowel obstruction or evidence of metastatic disease. Today labs reveal WBC 3.6, Hbg 11, Cr 0.9. Vital signs are stable. On examination abdomen is soft, non distended with mild discomfort palpation infraumbilically. She reports feeling improvement in her pain overall and is passing flatus and a BM this AM. No nausea/vomiting. Agree with conservative measures at this time, there are no findings on examination indicating that we need to take her to the OR for intervention. We will follow. May consider clears later and see how she fairs. (2) History of colon cancer: Supervising Physician Co-Signing Physician Notes pnt S&E, labs and imaging reviewed, agree with above. Known to me from robotic right hemicolectomy for adenoca of Cecum with obstruction 1 year ago, presented with abd pain. CT with possible internal hernia. Pain is resolved, had large bm. afvss, abd soft, nt, nd. incision well healed, no hernia. ct personally reviewed and agree with no obstruction, some swirling of mesentery, may re present internal hernia. Her symptoms have resolve. discussed observation vs surgery, we agreed with obs. she may have an internal hernia, but nothing acute for now. if she tolerates diet can d/c to home. return precautions given. she can follow up with me to discuss elective dx laparoscopy if symptoms persist or recur. History of Present Illness Attending Physician: Mariela Louis MD History of Present Illness This is a 62yF with a PMH of L breast ca, colon ca s/p R hemicolectomy in 06/26/[address] Hopper HLD, HTN, asthma, who presents to the [facility] ED on 07/28/23 with complaints of abdominal pain. She reports her pain began around 10AM and was mostly located in the central abdomen. Prior to this she had some coffee and a dried fruit bar. At it's worst she rated the pain a 7/10 in severity. She initially thought it was related to gas, but because of her surgical and cancer history she opted to come in to the ER for further evaluation. A CT a/p was performed that revealed some swirling of the central mesenteric vessels/central mesentery which is new with the majority of the small bowel loops are located along the right side of the abdomen and the majority of the colon is now located within the left side the abdomen. This can be seen in the setting of intestinal malrotation,however it raises the possibility of an internal hernia or less likely developing midgut volvulus. There is no evidence for a bowel obstruction or evidence of metastatic disease. The patient reported feeling cold, but no known fevers. No nausea/vomiting, CP/SOB. Her last colonoscopy was in June and last chemo was january. She said she is slated to undergo radiation of her breast in the near future. This AM the patient reports feeling much better. She is passing flatus and had a decent sized BM this AM. She does not feel ill to her stomach, denies n/v. Reports mild pain infraumbilically with palpation, but overall improved. Allergies Allergy/AdvReac Type Severity Reaction Status Date / Time Sulfa (Sulfonamide Allergy Intermediate Hives Verified 07/28/23 19:32 Antibiotics) Home Medications Medication Instructions Recorded Confirmed Type albuterol sulfate 90 mcg/actuation 2 puffs inhalation Q4H PRN 01/15/19 07/28/23 Rx aerosol inhaler (Ventolin HFA) shortness of breath or wheezing #18 grams fluticasone 100 mcg-salmeterol 50 2 ea inhalation Q12H 07/11/22 07/28/23 History mcg/dose blistr powdr for inhalation (Advair Diskus) loratadine 10 mg tablet 10 mg PO QAM 07/12/22 07/28/23 History multivitamin (Daily Multi-Vitamin 1 tab PO QAM 07/12/22 07/28/23 History tablet) lisinopril 5 mg tablet 5 mg PO QAM #90 tabs 11/04/22 07/28/23 Rx gabapentin 300 mg capsule 300 mg PO DAILY 06/16/23 07/28/23 History Citracal Tabs 1,200 mg PO DAILY 07/28/23 07/28/23 History Patient History Medical History 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 H/O lumpectomy left breast; multiple H/O colonoscopy 12/29/13 repeat 10yr 06/25/22 History of tubal ligation Family History Grandmother Stroke syndrome Cancer Stroke Uncle Colorectal cancer Mother Heart disease Hypertension Grandfather Stroke Other No family history of adverse response to anesthesia Denies family history of Ovarian cancer Prostate cancer Myocardial infarction Breast cancer Social History Smoking Status: Never smoker Second Hand Exposure: No; Do You Dip or Chew Tobacco: No; Hx Alcohol Use: Yes Alcohol type: wine Alcohol Intake Frequency: Monthly or Less Hx Substance Use: No Preferred Language: Chadian Communication Ability: Effective Visual Impairment: No Limitations Utility Bill Collector Required: No Beliefs That Will Affect Care: None marital status: Current Living Situation: Spouse current occupational status: employed current occupation: Educator How many Children do You have: 3 Feels Safe at Home: Yes Diet: regular during the past year weight has: increased > 10 lbs Assistive Devices: None Review of Systems Respiratory: no dyspnea Cardiovascular: no chest pain Gastrointestinal: + abdominal pain (central abdomen) and + bloating; no nausea and no vomiting Physical Exam Physical Exam: awake/alert, no distress Respiratory: normal respiratory effort Gastrointestinal (Abdomen): Inspection/Auscultation: + abdominal surgical scar; abdomen not distended Percussion/Palpation: + abdomen tender (mild discomfort to palpation midline infraumbilically ) and abdomen soft; no guarding Results & Data Vital Signs (Past 12 Hours) Vital Signs Temp Pulse Resp BP Pulse Ox O2 Del Method 07/29/23 08:01 36.5 C 61 16 162/91 H 96 Room Air 07/28/23 23:23 78 146/86 H 07/28/23 21:20 169/100 H 07/28/23 20:42 36.5 C 78 16 177/95 H 98 Room Air Diagnostic Findings ABDOMEN AND PELVIS CT WITH IV CONTRAST CT DOSE: 850.26 mGy.cm HISTORY: Diffuse abdominal pain history of colon cancer s/p R colecto TECHNIQUE: Multiaxial CT images of the abdomen and pelvis were performed following the use of intravenous contrast. A dose lowering technique was utilized adhering to the principles of ALARA. COMPARISON STUDY: Abdomen and pelvis CT 05/07/2023. FINDINGS: Left basilar linear densities favor subsegmental atelectasis are scarring. The right lung base is clear. No pneumoperitoneum. No pneumatosis. No acute fractures identified. 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 Small cyst again noted within segment 6 of the liver, unchanged. No new or suspicious hepatic lesions. The spleen and adrenal glands are unremarkable. The pancreas enhances normally. Stable subcentimeter hypodense lesions within the right kidney. These are technically too small to characterize but favor cysts. No hydronephrosis. Normal left kidney. The main portal vein is patent. Mild calcified plaque within the normal caliber abdominal aorta. No retroperitoneal or pelvic lymphadenopathy. No pelvic free fluid. The bladder, uterus, adnexa are unremarkable. Colonic diverticulosis. No evidence for acute diverticulitis. The duodenum appears cross the midline. However, there is swirling of the central mesenteric vessels/central mesentery which is new compared the prior study. There is mild edema within the right side of the mesentery. The majority of the small bowel loops are located along the right side of the abdomen and the majority of the colon is now located within the left side the abdomen. This can be seen in the setting of intestinal malrotation. However, this is new compared to the prior studies and therefore raises the possibility of an internal hernia or less likely developing midgut volvulus. There is no evidence for a bowel obstruction or bowel wall thickening at this time. There is evidence for prior right hemicolectomy. IMPRESSION: 1. The duodenum appears to cross the midline. However, there is swirling of the central mesenteric vessels/central mesentery which is new compared the prior study. There is mild edema within the right side of the mesentery. The majority of the small bowel loops are located along the right side of the abdomen and the majority of the colon is now located within the left side the abdomen. This can be seen in the setting of intestinal malrotation. However, this is new compared to the prior studies and therefore raises the possibility of an internal hernia or less likely developing midgut volvulus. There is no evidence for a bowel obstruction or bowel wall thickening at this time. 2. Prior right hemicolectomy again noted. 3. No evidence for metastatic disease within the abdomen or pelvis. ACT 112: Negative or not required by law. Electronically signed by: Himanshu Hinson M.D. 07/28/2023 6:11 PM PG Care Time/CCT Total # of Minutes Spent Total Time Spent with Patient: Total time spent is greater than 50% in coordination of care (as documented) at patient's floor/unit and/or counseling patient: Coding Level of Care Code 89452 IN/OBS CONSULT LVL 3,45M Diagnoses Abdominal pain R10.9 History of colon cancer Z85.038
[2023-07-29] MEDS ORDERED: lisinopril 5 MG TAB PO SCH (09:00)
--- NOTE | 2023-07-29 10:56 | Hospitalist Progress Note ---
Date of Service July 29, 2023 Assessment & Plan (1) Abdominal pain: Plan: 62yo female presenting with abdominal pain. 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 Mcneal of Heme/Onc). She has had abdominal pain and bloating and decreased stool output x [address] as above with concern for possible developing hernia or volvulus. No metastatic disease, obstruction or evidence of bowel ischemia at this time. She continues to pass gas General surgery is on consult, plan is for conservative management Diet as tolerated (2) Breast cancer, left: Plan: Patient with recently diagnosed DCIS of the breast s/p partial mastectomy. She is to establish care with Radiation Oncology on 09/05/23. She follows with Dr. Mcneal. (3) Hypertension, essential, benign: Plan: Chronic. Blood pressure mildly elevated -Pain control as above -Holding Lisinopril for now as NPO -Continue to monitor BP (4) History of colon cancer: Plan: Status post hemicolectomy and chemotherapy No evidence of recurrence Plan Continue to monitor, discharge plans per surgery Admission and Anticipated Discharge Date Admission Date: July 28, 2023 Subjective Patient seen and examined this morning, still endorses some mild abdominal pain, but passing gas Review of Systems Review of Systems: All systems reviewed are negative, apart from the ones contained in the history. Physical Exam Physical Exam: The patient is awake, alert and oriented 3, well developed and well nourished, normocephalic and atraumatic, lying in bed and in no acute distress. HEENT--PERRL, EOMI, mucous membranes and oropharynx mildly dry Neck--supple. No JVD. No bruits. Thyroid normal, trachea midline, no adenopathy. Heart--normal S1 and S2. No murmurs, rubs or gallops. Lungs--clear bilaterally, no respiratory distress, no accessory muscle use. Abdomen--normal bowel sounds and soft. Mild epigastric and left sided abdominal pain Extremities--no cyanosis or clubbing. No edema. Dermatologic--normal skin turgor, normal color, no abnormal lymph nodes, no rash. Neurologic--cranial nerves II through XII grossly intact. Rheumatologic--normal range of motion. Psychiatric--normal affect. Results & Data Results & Data Vital Signs (Past 12 Hours) Vital Signs Temp Pulse Resp BP Pulse Ox O2 Del Method 07/29/23 08:01 97.7 F 61 16 162/91 H 96 Room Air 07/28/23 23:23 78 146/86 H PG Care Time/CCT Total # of Minutes Spent Total Time Spent with Patient: Total time spent is greater than 50% in coordination of care (as documented) at patient's floor/unit and/or counseling patient: Coding Level of Care Code 27719 SUB INP/OBS CARE 2/35MIN Diagnoses Abdominal pain R10.9 Breast cancer, left C50.912 Hypertension, essential, benign I10 History of colon cancer Z85.038 Time Spent (min) 35
--- NOTE | 2023-07-29 13:41 | Discharge Summary ---
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 Hopper s/p chemotherapy presenting with abdominal pain. Patient had been in her usual state of health until today 07/28/23 around 10:30 when she developed dull periumbilical pain. Her pain continued and worsened throughout the day which prompted her to come to the ER. She was concerned because the pain she felt was similar to the pain associated with her prior bowel obstruction. She reports normal bowel movements until today when she had a small, hard BM. She has some abdominal distention as well. She has had some hot flashes over the last several days which is somewhat abnormal for her. Otherwise no nausea or vomiting. She is passing flatus. No additional complaints at this time - specifically no chest pain, palpitations, cough, SOB, fever. In the ER she is afebrile, mildly hypertensive otherwise HD stable ER Course: NSS x 1L Principal Diagnosis mild volvolus Discharge Exam The patient is awake, alert and oriented 3, well developed and well nourished, normocephalic and atraumatic, lying in bed and in no acute distress. HEENT--PERRL, EOMI, mucous membranes and oropharynx mildly dry Neck--supple. No JVD. No bruits. Thyroid normal, trachea midline, no adenopathy. Heart--normal S1 and S2. No murmurs, rubs or gallops. Lungs--clear bilaterally, no respiratory distress, no accessory muscle use. Abdomen--normal bowel sounds and soft. Mild epigastric and left sided abdominal pain Extremities--no cyanosis or clubbing. No edema. Dermatologic--normal skin turgor, normal color, no abnormal lymph nodes, no rash. Neurologic--cranial nerves II through XII grossly intact. Rheumatologic--normal range of motion. Psychiatric--normal affect. Discharge Data Allergies Allergy/AdvReac Type Severity Reaction Status Date / Time Sulfa (Sulfonamide Allergy Intermediate Hives Verified 07/28/23 19:32 Antibiotics) Consultations 07/28/23 19:21 ED Decision to Admit Stat 07/28/23 19:39 Consult General Surgery Routine Ordered Studies 07/28/23 16:33 CT abd pelvis IV con only Stat Hospital Course (1) Abdominal pain: 62yo female presenting with abdominal pain. 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 Mcneal of Heme/Onc). She has had abdominal pain and bloating and decreased stool output x [address] as above with concern for possible developing hernia or volvulus. No metastatic disease, obstruction or evidence of bowel ischemia at this time. She continues to pass gas General surgery is on consult, plan is for conservative management Diet as tolerated (2) Breast cancer, left: Patient with recently diagnosed DCIS of the breast s/p partial mastectomy. She is to establish care with Radiation Oncology on 09/05/23. She follows with Dr. Mcneal. (3) Hypertension, essential, benign: Chronic. Blood pressure mildly elevated -Pain control as above -Holding Lisinopril for now as NPO -Continue to monitor BP (4) History of colon cancer: Status post hemicolectomy and chemotherapy No evidence of recurrence Plan Continue to monitor, discharge plans per surgery Total Time Total Time Spent Total Time Spent (In Minutes): 35 Discharge Plan Discharge Items Patient Disposition: Home - Self-Care Reason For Visit: ABDOMINAL PAIN Discharge Diagnosis: mild volvolus Activity: Resume your previous activity Non-emergency contact: Primary Care Provider and Surgeon Call non-emergency contact if: you have any medication questions Follow-up/Referrals: Solomon Hopper DO, FACS [Physician] - (Please call to schedule follow up in the office with Dr. Hopper in the next few weeks) Leah Mello CRNP [Primary Care Provider] - Diet: Regular Addtl Attending Provider Instructions: please follow up with your regular oncologist and surgeeon Pending Studies at Discharge: No Stand-Alone Forms: My G-mode, Smoking Cessation Medications and DC Order Prescriptions: Continued lisinopril 5 mg tablet 5 mg PO QAM Qty: 90 3RF albuterol sulfate [Ventolin HFA] 90 mcg/actuation HFA aerosol inhaler 2 puffs INH Q4H PRN (Reason: shortness of breath or wheezing) Qty: 18 3RF fluticasone propion-salmeterol [Advair Diskus] 100-50 mcg/dose blister with device 2 ea INH Q12H multivitamin [Daily Multi-Vitamin] tablet 1 tab PO QAM loratadine 10 mg tablet 10 mg PO QAM gabapentin 300 mg Capsule 300 mg PO DAILY Rx Instructions: Ordered tid Citracal Tabs 1,200 mg PO DAILY Discharge Orders: Discharge Order (Routine); Ordered 07/29/23 Ordered By: Mariela Louis Admission Data Admit Date/Time: 07/28/23 19:39 Attending Provider: Mariela Louis Admit Provider: Martine Bright Primary Care Provider: Leah Mello Other Providers: Solomon Hopper; Martine Bright Coding Level of Care Code 14610 INP/OBS DISCH >30 MIN Diagnoses Abdominal pain R10.9 Breast cancer, left C50.912 Hypertension, essential, benign I10 History of colon cancer Z85.038 Time Spent (min) 35
--- NOTE | 2023-08-01 12:10 | Coding Query ---
CODING QUERY To promote full compliance with coding requirements relating to patient care, provider participation is requested in all cases of army manager uncertainty. Please assist us with the question(s) below: Coding Question(s): The H&P documents abdominal pain, and documents CT finding of, "CT as above with concern for possible developing hernia or volvulus", and the Surgery Consultation documents,"possibility of an internal hernia or less likely developing midgut volvulus", and the Discharge Summary documents, under Principal Diagnosis, "mild volvolus", and does not document the possible internal hernia, except as a CT finding. Please specify below, in your clinical opinion: (x ) Possible mild volvulus and internal hernia ( ) Possible mild volvulus only, with internal hernia ruled-out ( ) Other: Please Specify Physician's Response(s): Thank you Lolita Brian Principal Diagnosis: "that condition established after study, to be chiefly responsible for occasioning the admission of the patient to the hospital for care." Co-Existing Principal Diagnosis: "when two or more diagnoses equally meet the criteria for principal diagnosis as determined by the circumstances of admission, diagnostic work up, and/or therapy provided, and the Alphabetic Index, Tabular List, or another coding guideline does not provide sequencing direction, any one of the diagnoses may be sequenced first." "When the physician has documented what appears to be a current diagnosis in the body of the record, but has not included the diagnosis in the final diagnostic statement, the physician should be asked whether the diagnosis should be added." (Source Coding Clinic 2 QTR90. p3-4) ELICIAD
== END 2023-07-29 17:03 | disposition home or self-care (01) | DRG 393 ==
LOC: ED 14:51 → INTOOBSV 19:39 → SUATTDRO 19:39 → 3N 19:39